=== PATIENT | female | born 1985 | race Caucasian/White ===

== ENCOUNTER 2017-09-19 19:17 | Emergency (ER) | payer OTHER ==
[2017-09-19 19:22] VITALS: BMI 22.2
[2017-09-19] MEDS ORDERED: SODIUM CHLORIDE 1,000 ML IV STA (20:07)
[2017-09-19] MEDS ORDERED: HYDROmorphone HCL CARPU-JECT 1 MG/1 ML DISP.SYRIN IVPUSH ONE ×2 (20:12→23:34)
--- NOTE | 2017-09-19 20:24 | PDOC ---
*Physical Exam - Vital Signs Last Vital Signs Temp Pulse Resp BP Pulse Ox 98.5 F 71 18 129/84 99 09/19/17 19:19 09/19/17 19:19 09/19/17 19:19 09/19/17 19:19 09/19/17 19:19 ED Treatment Course - LABORATORY CBC & Chemistry Diagram: 09/19/17 20:05 09/19/17 20:05 Medical Decision Making - Medical Decision Making 09/20/17 01:17 Pt seen by the Advanced Practice Provider under my direct supervision Ancillary studies reviewed I agree with plan as outlined by the Advanced Practice Provider *DC/Admit/Observation/Transfer Diagnosis at time of Disposition: Sickle cell pain crisis - Discharge Dispostion Disposition: HOME - Patient Instructions Printed Discharge Instructions: DI for Sickle Cell Anemia, Pain Crisis -- Adult Additional Instructions: drink plenty of fluids follow up with your lidar scientist as soon as possible. take your home pain medication.
--- NOTE | 2017-09-19 20:30 | PDOC ---
History of Present Illness - General Chief Complaint: Pain Stated Complaint: SICKLE CELL CRISIS Time Seen by Provider: 09/19/17 19:40 History Source: Patient - History of Present Illness Initial Comments: 09/19/17 20:36 31 year old complaining of chest pain, shoulder and arm pain and hip pain for 2 days. Patient took Dilaudid at 7 AM continued to have no relief in pain today. Denies cough or chest congestion, shortness of breath, abdominal pain, nausea vomiting diarrhea but this time. Patient has a history of sickle cell disease and followed by hematology at [facility]. last admission in May for pain crisis . normal hgb 7-8 Past History - Past Medical History Allergies/Adverse Reactions: Allergies Allergy/AdvReac Type Severity Reaction Status Date / Time bacitracin Allergy Verified 09/19/17 19:22 morphine Allergy Verified 09/19/17 19:22 Other medical history: sickle cell - Suicide/Smoking/Psychosocial Hx Smoking History: Never smoked Review of Systems - Review of Systems Able to Perform ROS?: Yes Is the patient limited Romanian proficient: No Constitutional: Yes: Other (generalized pain) Cardiac (ROS): Yes: Chest Pain Musculoskeletal: Yes: Other (arm pain, hip pain ) *Physical Exam - Vital Signs Last Vital Signs Temp Pulse Resp BP Pulse Ox 98.5 F 71 18 129/84 99 09/19/17 19:19 09/19/17 19:19 09/19/17 19:19 09/19/17 19:19 09/19/17 19:19 - Physical Exam General Appearance: Yes: Appropriately Dressed HEENT: positive: Other (icteric sclera) Respiratory/Chest: positive: Lungs Clear, Normal Breath Sounds Cardiovascular: positive: Regular Rhythm, Regular Rate Gastrointestinal/Abdominal: positive: Normal Bowel Sounds, Soft. negative: Tender Extremity: positive: Normal Capillary Refill, Normal Inspection, Normal Range of Motion ED Treatment Course - LABORATORY CBC & Chemistry Diagram: 09/19/17 20:05 09/19/17 20:05 - RADIOLOGY Chest X-Ray Result: No Infiltrates Progress Note - Progress Note Progress Note: A: sickle cell pain crisis P: cbc cmp retic count pain control IV hydration reevaluate Medical Decision Making - Medical Decision Making pain improved pain medication. patient is requesting to go home. patient reports that she will po hydrate at home. *DC/Admit/Observation/Transfer Diagnosis at time of Disposition: Sickle cell pain crisis - Discharge Dispostion Disposition: HOME - Patient Instructions Printed Discharge Instructions: DI for Sickle Cell Anemia, Pain Crisis -- Adult Additional Instructions: drink plenty of fluids follow up with your ammunition specialist as soon as possible. take your home pain medication.
[2017-09-19 21:07] LABS: BASOPHIL 0.6 % (0-2.0); EOSINOPHIL 3.2 % (0-4.5); MCH 30.9 pg (25.7-33.7); MCHC 35.2 g/dl (32.0-36.0); MEAN CELL VOLUME 87.7 fl (80-96); MEAN PLT VOLUME 7.8 fl (7.5-11.1); PLATELET COUNT 406 K/MM3 (134-434); RDW 18.7 % (11.6-15.6); WHITE BLOOD COUNT 16.6 K/mm3 (4.0-10.0)
[2017-09-19] MEDS ORDERED: HYDROmorphone HCL CARPU-JECT 1 MG/1 ML DISP.SYRIN ONE ×2 (21:12→23:54)
[2017-09-19 21:20] LABS: URINE APPEARANCE CLEAR; URINE BILIRUBIN NEGATIVE (NEGATIVE); URINE BLOOD NEGATIVE (NEGATIVE); URINE COLOR YELLOW; URINE GLUCOSE (UA) NEGATIVE (NEGATIVE); URINE KETONE NEGATIVE (NEGATIVE); URINE NITRITE NEGATIVE (NEGATIVE); URINE PROTEIN NEGATIVE (NEGATIVE); URINE UROBILINOGEN NEGATIVE mg/dL (0.2-1.0)
[2017-09-19 21:26] LABS: INR 1.33 (0.82-1.09)
[2017-09-19 21:46] LABS: ALBUMIN 3.9 g/dl (3.4-5.0); ALK PHOS 72 U/L (45-117); ANION GAP 9 (8-16); BILIRUBIN,TOTAL 7.5 mg/dL (0.2-1.0); CALCIUM 8.7 mg/dL (8.5-10.1); CO2 25 mmol/L (21-32); CREATININE 0.4 mg/dL (0.55-1.02); GLUCOSE,RANDOM 87 mg/dL (74-106); SGOT/AST 28 U/L (15-37); SGPT/ALT 16 U/L (12-78)
[2017-09-19 22:46] LABS: URINE LEUK ESTERASE Negative (NEGATIVE)
[2017-09-19] MEDS ORDERED: SODIUM CHLORIDE 1,000 ML IV SCH (23:15)
[2017-09-19] MEDS ORDERED: diphenhydrAMINE HCL 25 MG CAPSULE (FP) PO ONE (23:58)
[2017-09-20] MEDS ORDERED: diphenhydrAMINE HCL 25 MG CAPSULE (FP) PO ONE
[2017-09-20 02:20] VITALS: BP 98/61; PULSE 61; TEMP 98.3
== END 2017-09-20 02:26 | disposition home or self-care (01) ==
LOC: JER 19:17
PROC: 3E0337Z Introduction of Electrolytic and Water Balance Substance into Peripheral Vein, Percutaneous Approach (ICD-10-PCS; principal; 2017-09-19)
PROC: 3E033NZ Introduction of Analgesics, Hypnotics, Sedatives into Peripheral Vein, Percutaneous Approach (ICD-10-PCS; 2017-09-19)
PROC: 3E033GC Introduction of Other Therapeutic Substance into Peripheral Vein, Percutaneous Approach (ICD-10-PCS; 2017-09-19)
DX: D57.00 Hb-SS disease with crisis, unspecified (principal)
CPT/HCPCS: 36415; 71020-TC; 80053; 81003; 84703; 85025; 85044; 85610; 86850; 86900; 86901; 99281-25; G0277

== ENCOUNTER 2017-10-07 15:01 | Inpatient (IN) | payer OTHER ==
[2017-10-07] MEDS ORDERED: HYDROmorphone HCL CARPU-JECT 2 MG/1 ML DISP.SYRIN IVPUSH ONE ×2 (15:13→18:07)
[2017-10-07] MEDS ORDERED: SODIUM CHLORIDE 1,000 ML IV STA (15:14)
--- NOTE | 2017-10-07 15:54 | PDOC ---
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 - Physicial Exam PE: 10/07/17 16:26 Vitals: Triage Vital signs reviewed General Appearance: no acute distress, well nourished well developed Head: Atraumatic Eyes: Pupils equal reactive round, extraocular movement intact Cardiac: Regular rate and rhythym, no murmurs, no rubs, no gallops Lungs: Clear to auscultation bilateral, good air movement bilaterally Extremities: Full range of motion to all extremities, no cyanosis, clubbing, or edema Skin: Warm and dry, no rashes or lesions, no rash, no petechiae Neuro: AOX3; Cranial Nerves 2-12 grossly intact, Strength intact to all extremities, Sensation intact to all extremities, gait normal Psych: Normal mood, normal affect <Ruthie Shin - Last Filed: 10/07/17 16:26> - Resident Resident Name: Carlos Coleman - ED Attending Attestation I have performed the following: I have examined & evaluated the patient, The case was reviewed & discussed with the resident, I agree w/resident's findings & plan, Exceptions are as noted - Medical Decision Making 10/07/17 19:16 Patient with persistent pain. Patient states pain is similar to previous sickle cell exacerbations. No findings on chest x-ray. We'll observe for sickle cell crisis and further management. Suspicion at this time for acute chest. EKG chest x-ray troponin within normal limits. Slightly elevated white blood cell count the patient does have nonhealing ulcer on foot. Elevated bili unchanged from last visit. Likely 2/2 to active hemolysis. No abdominal pain on exam.. We'll observe for further management pain control and evaluation of chest complaints symptom. 10/07/17 19:17 10/07/17 19:31 <Mundo Kramer - Last Filed: 10/07/17 19:31>
--- NOTE | 2017-10-07 15:55 | PDOC ---
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 A rapid response was called and the patient was brought to the Emergency department for evaluation. Patient states she was seen in the ER yesterday evening for similar complaints. Patient states that she has had acute chest syndrome in the past and states that her current pain is not as bad as at that time. Patient denies SOB, abdominal pain, fever, chills. Past History - Past Medical History Allergies/Adverse Reactions: Allergies Allergy/AdvReac Type Severity Reaction Status Date / Time bacitracin Allergy Verified 10/07/17 15:50 morphine Allergy Verified 10/07/17 15:50 Home Medications: Ambulatory Orders Ascorbic Acid [Vitamin C -] 500 mg PO BID 10/07/17 Diphenhydramine HCl [Benadryl -] 25 mg PO Q6H 10/07/17 Folic Acid - 1 mg PO DAILY 10/07/17 Hydromorphone [Dilaudid -] 4 mg PO Q4H PRN 10/07/17 Pantoprazole Sodium [Protonix -] 40 mg PO DAILY 10/07/17 Zinc Sulfate 220 mg PO DAILY 10/07/17 - Suicide/Smoking/Psychosocial Hx Smoking History: Never smoked Review of Systems - Review of Systems Able to Perform ROS?: Yes Is the patient limited Moldovan proficient: No Constitutional: No: Chills, Fever Respiratory: No: Cough, Shortness of Breath, SOB with Exertion Cardiac (ROS): Yes: Chest Pain. No: Edema, Irregular Heart Rate, Palpitations ABD/GI: No: Symptoms Reported Musculoskeletal: Yes: Joint Pain (pain in hip and shoulder joints ). No: Back Pain, Joint Swelling, Muscle Pain Integumentary: No: Bruising, Change in Color Neurological: No: Headache, Numbness, Tingling Hematologic/Lymphatic: Yes: Anemia. No: Blood Clots, Easy Bleeding *Physical Exam - Physical Exam General Appearance: Yes: Appropriately Dressed, Moderate Distress HEENT: negative: Scleral Icterus (R), Scleral Icterus (L) Neck: positive: Trachea midline. negative: Tender Respiratory/Chest: positive: Lungs Clear, Normal Breath Sounds. negative: Chest Tender, Respiratory Distress, Accessory Muscle Use Cardiovascular: positive: Regular Rhythm, Regular Rate, S1, S2. negative: Edema , JVD, Murmur, Gallop/S3, Gallop/S4 Gastrointestinal/Abdominal: positive: Normal Bowel Sounds, Flat, Soft. negative : Tender Musculoskeletal: positive: Normal Inspection. negative: CVA Tenderness Extremity: positive: Normal Inspection, Normal Range of Motion. negative: Tender Integumentary: positive: Normal Color, Dry, Warm Neurologic: positive: program aide II-XII NML intact, Fully Oriented, Alert, Normal Mood/ Affect, Normal Response Heart Score/ECG Review - History History: Slightly suspicious - Electrocardiogram EKG: Normal - Risk Factors Risk Factors Heart Score: No Hx Hypercholesterolemia, No Hx Hypertension, No Hx Diabetes, No Smoking History, No Positive family hx of cardiac disease, No Hx Obesity Based on the list above the patient has:: No risk factors known - Troponin Troponin: </= normal limit - ECG Intrepretation Rhythm: Regular Rhythm - [place]: Normal ED Treatment Course - LABORATORY CBC & Chemistry Diagram: 10/07/17 15:55 10/07/17 15:55 Medical Decision Making - Medical Decision Making 10/07/17 16:26 The patient is a 31 yo f w/ PMH sickle juanita anemia who was bourght to the ER following acute onset of hip and chest pain after undergoing hyperbaric treatment. Patient is overtly distressed and in pain. This is likely a sickle cell crisis. -CBC, CMP -reticulocyte count -Type and screen -coags -troponin -EKG -CXR -2mg dilaudid IV -25mg benadryl IV -1L NS bolus 10/07/17 16:54 -CBC shows Hb 6.7 and elevated reticulocyte count -CMP shows elevated T.Bili -patient is likely to be admitted with a hematology consult. 10/07/17 18:20 -patient's pain not controlled; giving another 2mg dilaudid and 25 mg benadryl -spoke with hospitalist team who agrees to admit the patient for observation. *DC/Admit/Observation/Transfer Diagnosis at time of Disposition: Sickle cell anemia with crisis - Discharge Dispostion Condition at time of disposition: Improved Admit: Yes - Referrals - Patient Instructions - Post Discharge Activity
[2017-10-07] MEDS ORDERED: HYDROmorphone HCL CARPU-JECT 2 MG/1 ML DISP.SYRIN ONE ×3 (15:59→20:54)
[2017-10-07 16:02] LABS: BASOPHIL 0.5 % (0-2.0); EOSINOPHIL 1.6 % (0-4.5); MCH 29.5 pg (25.7-33.7); MCHC 35.6 g/dl (32.0-36.0); MEAN CELL VOLUME 82.9 fl (80-96); MEAN PLT VOLUME 7.6 fl (7.5-11.1); NEUTROPHILS 59.8 % (42.8-82.8); PLATELET COUNT 323 K/MM3 (134-434); RDW 19.4 % (11.6-15.6)
[2017-10-07 16:18] LABS: INR 1.41 (0.82-1.09); PROTHROMBIN TIME (PATIENT) 15.9 SEC (9.98-11.88)
[2017-10-07 16:27] LABS: ANISOCYTOSIS 2+; HYPOCHROMIA 2+; MICROCYTOSIS 1+; POIKILOCYTOSIS 1+; POLYCHROMASIA 1+; TARGET CELLS 1+
[2017-10-07 16:28] LABS: ALK PHOS 54 U/L (45-117); ANION GAP 7 (8-16); BILIRUBIN,TOTAL 7.9 mg/dL (0.2-1.0); CALCIUM 8.5 mg/dL (8.5-10.1); CO2 27 mmol/L (21-32); CREATININE 0.5 mg/dL (0.55-1.02); GLUCOSE,RANDOM 84 mg/dL (74-106); SGOT/AST 18 U/L (15-37); SGPT/ALT 14 U/L (12-78); TOT PROT 6.6 g/dl (6.4-8.2)
[2017-10-07] MEDS ORDERED: ACETAMINOPHEN 1000 MG/100 ML VIAL (NON FORMULARY) IVPB ONE (19:02)
[2017-10-07] MEDS ORDERED: ACETAMINOPHEN INJECTION 100 ML IVPB ONE (19:05)
[2017-10-07] MEDS ORDERED: HYDROmorphone HCL CARPU-JECT 2 MG/1 ML DISP.SYRIN IM PRN (20:45)
--- NOTE | 2017-10-07 20:50 | PN ---
Teaching Attending Note Name of Resident: Karen Paul ATTENDING PHYSICIAN STATEMENT I saw and evaluated the patient. I reviewed the resident's note and discussed the case with the resident. I agree with the resident's findings and plan as documented. SUBJECTIVE:Patient with h/o sickle cell presented with shoulder, chest and hip pain. Denies SOB. last crisis in may 2017. No taking hydroxyurea due to wound treatment. Patient had recent rapid response episode in hyperbaric therapy today. OBJECTIVE: CBCD WBC 15.0 K/mm3 (4.0-10.0) H 10/07/17 15:55 RBC 2.27 M/mm3 (3.60-5.2) L 10/07/17 15:55 Hgb 6.7 GM/dL (10.7-15.3) L* D 10/07/17 15:55 Hct 18.9 % (32.4-45.2) L 10/07/17 15:55 MCV 82.9 fl (80-96) 10/07/17 15:55 MCHC 35.6 g/dl (32.0-36.0) 10/07/17 15:55 RDW 19.4 % (11.6-15.6) H 10/07/17 15:55 Plt Count 323 K/MM3 (134-434) D 10/07/17 15:55 MPV 7.6 fl (7.5-11.1) 10/07/17 15:55 CMP Sodium 141 mmol/L (136-145) 10/07/17 15:55 Potassium 4.0 mmol/L (3.5-5.1) 10/07/17 15:55 Chloride 107 mmol/L (98-107) 10/07/17 15:55 Carbon Dioxide 27 mmol/L (21-32) 10/07/17 15:55 Anion Gap 7 (8-16) L 10/07/17 15:55 BUN 10 mg/dL (7-18) D 10/07/17 15:55 Creatinine 0.5 mg/dL (0.55-1.02) L D 10/07/17 15:55 Creat Clearance w eGFR > 60 (>60) 10/07/17 15:55 Random Glucose 84 mg/dL (74-106) 10/07/17 15:55 Calcium 8.5 mg/dL (8.5-10.1) 10/07/17 15:55 Total Bilirubin 7.9 mg/dL (0.2-1.0) H 10/07/17 15:55 AST 18 U/L (15-37) D 10/07/17 15:55 ALT 14 U/L (12-78) 10/07/17 15:55 Alkaline Phosphatase 54 U/L (45-117) D 10/07/17 15:55 Total Protein 6.6 g/dl (6.4-8.2) 10/07/17 15:55 Albumin 4.0 g/dl (3.4-5.0) 10/07/17 15:55 CARDIAC ENZYMES Troponin I < 0.02 ng/ml (0.00-0.05) 10/07/17 15:55 ASSESSMENT AND PLAN: Sickle Cell Crisis r/o Acute chest Oxygen via 2L NC Diluadid 3mg q4h prn IVF NS 200cc/h Wound care - hyperbaric oxygen therapy as recommended.
[2017-10-07] MEDS ORDERED: HYDROmorphone HCL CARPU-JECT 1 MG/1 ML DISP.SYRIN ONE (20:54)
[2017-10-07] MEDS: SODIUM CHLORIDE 1,000 ML IV SCH (21:00)
[2017-10-07 21:11] LABS: URINE APPEARANCE CLEAR; URINE BILIRUBIN NEGATIVE (NEGATIVE); URINE BLOOD NEGATIVE (NEGATIVE); URINE COLOR LTYELLOW; URINE GLUCOSE (UA) NEGATIVE (NEGATIVE); URINE KETONE NEGATIVE (NEGATIVE); URINE NITRITE NEGATIVE (NEGATIVE); URINE PROTEIN NEGATIVE (NEGATIVE); URINE UROBILINOGEN NEGATIVE mg/dL (0.2-1.0)
--- NOTE | 2017-10-07 21:45 | HP ---
CHIEF COMPLAINT: Shoulder/knee/hip pain PCP: [facility] [employer] Offbearer: Dr. Sheridan HISTORY OF PRESENT ILLNESS: Patient is a 31 year old female with a PMHx of sickle cell anemia (last sickle cell crisis -06/2017) with avascular necrosis of the hip and a chronic nonhealing foot ulcer who was initially a rapid response this afternoon while in hyperbarics for her foot treatment. Patient reports after completing her hyperbarics session, she started having severe hip and shoulder pain associated with chest pressure. Patient was rushed down to the ED and was given fluids and pain medication with adequate pain control. Patient states she has had several similar episodes in the past. Otherwise, patient denies fever, chills, nausea,vomiting, headache, acute vision changes, change in gait. ER course was notable for: (1) Dilaudid (2) Benadryl (3) IV NS Recent Travel: Denies PAST MEDICAL HISTORY: Sickle Cell anemia, Gastric ulcers PAST SURGICAL HISTORY: Skin graft of lower extremities Social History: Smoking: Denies Alcohol: Denies Drugs: Denies Family History: Mother- HTN, Father- HTN and DM Allergies: bacitracin Allergy (Verified 10/07/17 15:50), morphine Allergy ( Verified 10/07/17 15:50) HOME MEDICATIONS: Home Medications Medication Instructions Recorded Ascorbic Acid [Vitamin C -] 500 mg PO BID 10/07/17 Diphenhydramine HCl [Benadryl -] 25 mg PO Q6H 10/07/17 Folic Acid - 1 mg PO DAILY 10/07/17 Hydromorphone [Dilaudid -] 4 mg PO Q4H PRN 10/07/17 Pantoprazole Sodium [Protonix -] 40 mg PO DAILY 10/07/17 Zinc Sulfate 220 mg PO DAILY 10/07/17 REVIEW OF SYSTEMS CONSTITUTIONAL: Absent: fever, chills, diaphoresis, generalized weakness, malaise, loss of appetite, weight change HEENT: Absent: rhinorrhea, nasal congestion, throat pain, throat swelling, difficulty swallowing, mouth swelling, ear pain, eye pain, visual changes CARDIOVASCULAR: Chest pressure Absent: syncope, palpitations, irregular heart rate, lightheadedness, peripheral edema RESPIRATORY: Absent: cough, shortness of breath, dyspnea with exertion, orthopnea, wheezing, stridor, hemoptysis GASTROINTESTINAL:abdominal pain Absent: abdominal distension, nausea, vomiting, diarrhea, constipation, melena, hematochezia GENITOURINARY: Absent: dysuria, frequency, urgency, hesitancy, hematuria, flank pain, genital pain MUSCULOSKELETAL: Absent: myalgia, arthralgia, joint swelling, back pain, neck pain SKIN: Absent: rash, itching, pallor HEMATOLOGIC/IMMUNOLOGIC: Absent: easy bleeding, easy bruising, lymphadenopathy, frequent infections ENDOCRINE: Absent: unexplained weight gain, unexplained weight loss, heat intolerance, cold intolerance NEUROLOGIC: Absent: headache, focal weakness or paresthesias, dizziness, unsteady gait, seizure, mental status changes, bladder or bowel incontinence PSYCHIATRIC: Absent: anxiety, depression, suicidal or homicidal ideation, hallucinations. PHYSICAL EXAMINATION Vital Signs - 24 hr 10/07/17 10/07/17 10/07/17 15:05 21:09 21:24 Temperature 98.0 F Pulse Rate 78 Pulse Rate [ 78 Apical] Respiratory 20 16 Rate Blood Pressure 126/74 Blood Pressure 100/58 [Left Arm] O2 Sat by Pulse 100 96 96 Oximetry (%) GENERAL: Awake, alert, and fully oriented, in no acute distress. HEAD: Normal with no signs of trauma. EYES: Pupils equal, round and reactive to light, extraocular movements intact, sclera anicteric, conjunctiva clear. EARS, NOSE, THROAT: Oropharynx clear without exudates. Moist mucous membranes. NECK: Normal range of motion, supple without lymphadenopathy, JVD, or masses. LUNGS: Breath sounds equal, clear to auscultation bilaterally. No wheezes, and no crackles. No accessory muscle use. HEART: Regular rate and rhythm, normal S1 and S2 without murmur, rub or gallop. ABDOMEN: Soft, mild diffuse tenderness upon palpation of abdomen, not distended , normoactive bowel sounds, no guarding, no rebound, no masses. MUSCULOSKELETAL: diffuse tenderness throughout shoulders, arms, knees. UPPER EXTREMITIES: No peripheral edema. LOWER EXTREMITIES: No peripheral edema. Left ankle dressing c/d/i. Would not let me assess the wound. NEUROLOGICAL: Cranial nerves II-XII intact. Normal speech. Laboratory Results - last 24 hr 10/07/17 10/07/17 10/07/17 15:55 15:55 15:55 WBC 15.0 H RBC 2.27 L Hgb 6.7 L* D Hct 18.9 L MCV 82.9 MCH 29.5 MCHC 35.6 RDW 19.4 H Plt Count 323 D MPV 7.6 Neutrophils % 59.8 Lymphocytes % 20.2 Monocytes % 17.9 H Eosinophils % 1.6 Basophils % 0.5 Hypochromia 2+ Polychromasia 1+ Poikilocytosis 1+ Anisocytosis 2+ Microcytosis 1+ Sickle Cells 2+ Target Cells 1+ Retic Count 11.13 H* D PT with INR 15.90 H INR 1.41 H Sodium 141 Potassium 4.0 Chloride 107 Carbon Dioxide 27 Anion Gap 7 L BUN 10 D Creatinine 0.5 L D Creat Clearance w eGFR > 60 Random Glucose 84 Calcium 8.5 Total Bilirubin 7.9 H AST 18 D ALT 14 Alkaline Phosphatase 54 D Troponin I Total Protein 6.6 Albumin 4.0 Urine Color Urine Appearance Urine pH Ur Specific Lane Urine Protein Urine Glucose (UA) Urine Ketones Urine Blood Urine Nitrite Urine Bilirubin Urine Urobilinogen Blood Type Antibody Screen 10/07/17 10/07/17 10/07/17 15:55 15:55 21:00 WBC RBC Hgb Hct MCV MCH MCHC RDW Plt Count MPV Neutrophils % Lymphocytes % Monocytes % Eosinophils % Basophils % Hypochromia Polychromasia Poikilocytosis Anisocytosis Microcytosis Sickle Cells Target Cells Retic Count PT with INR INR Sodium Potassium Chloride Carbon Dioxide Anion Gap BUN Creatinine Creat Clearance w eGFR Random Glucose Calcium Total Bilirubin AST ALT Alkaline Phosphatase Troponin I < 0.02 Total Protein Albumin Urine Color Ltyellow Urine Appearance Clear Urine pH 6.[address] 1.009 Urine Protein Negative Urine Glucose (UA) Negative Urine Ketones Negative Urine Blood Negative Urine Nitrite Negative Urine Bilirubin Negative Urine Urobilinogen Negative Blood Type O POSITIVE Antibody Screen Negative IMAGES Chest X-ray (10/07/17): No acute pathology ASSESSMENT/PLAN: Patient is a 31 year old female with a PMHx of sickle cell anemia with multiple crisis in the past who was in hyperbarics for her wound care and started having diffuse joint pain and chest pressure. Patient admitted for further monitoring and management. Sickle Cell Crisis with Low Hemoglobin -Elevated retic count with elevated total bili and decreased hemoglobin -Continue IV NS at 200cc/hr -Continue Pain control with 3mg Dilaudid IVPB Q4H PRN and Benadryl 25mg PO TID -Patient not on Hydroxurea due to poor wound healing and patient has history of LE ulcers. Medication stopped by wound doctor -Hematology consult placed for input on whether we should transfuse PRBC's. Chronic LE Ulcers -Secondary to severe sickle cell anemia -Patient follows up with wound care clinic and hyperbarics -Will continue home medications Zinc for wound healing History of Gastric Ulcers -Patient reports having EGD done before that showed gastric ulcers and has follow up for one next week -Continue Protonix 40mg daily F/E/N -IV NS @200cc/hr -Electrolytes wnl -Regular diet Prophylaxis -Low risks. Ambulating. -Protonix 40mg for GI Disposition -Full code -Hematology consult placed. Will need to remain overnight Visit type - Emergency Visit Emergency Visit: Yes ED Registration Date: 10/07/17 Care time: The patient presented to the Emergency Department on the above date and was hospitalized for further evaluation of their emergent condition. - New Patient This patient is new to me today: Yes Date on this admission: 10/08/17 - Critical Care Critical Care patient: No
[2017-10-07 22:34] VITALS: BMI 21.8
[2017-10-07 22:40] LABS: URINE LEUK ESTERASE Negative (NEGATIVE)
[2017-10-07] MEDS: diphenhydrAMINE HCL 25 MG CAPSULE (FP) PO SCH (23:25)
[2017-10-08] MEDS: SODIUM CHLORIDE 1,000 ML IV SCH ×2 (03:05→14:26)
[2017-10-08] MEDS: HYDROmorphone HCL CARPU-JECT 2 MG/1 ML DISP.SYRIN IVPB PRN ×6 (05:02→21:30)
[2017-10-08] MEDS: diphenhydrAMINE HCL 25 MG CAPSULE (FP) PO SCH ×3 (06:11→21:26)
[2017-10-08 07:40] LABS: BASOPHIL 1.1 % (0-2.0); EOSINOPHIL 2.5 % (0-4.5); MCH 29.9 pg (25.7-33.7); MCHC 36.5 g/dl (32.0-36.0); MEAN CELL VOLUME 81.9 fl (80-96); NEUTROPHILS 58.6 % (42.8-82.8); PLATELET COUNT 309 K/MM3 (134-434); RDW 21.2 % (11.6-15.6); WHITE BLOOD COUNT 11.4 K/mm3 (4.0-10.0)
[2017-10-08] MEDS ORDERED: SODIUM CHLORIDE 1,000 ML IV SCH (07:45)
[2017-10-08 08:06] LABS: INR 1.34 (0.82-1.09); PROTHROMBIN TIME (PATIENT) 15.1 SEC (9.98-11.88)
[2017-10-08 08:09] LABS: ALBUMIN 3.6 g/dl (3.4-5.0); ANION GAP 10 (8-16); CALCIUM 7.8 mg/dL (8.5-10.1); CO2 23 mmol/L (21-32); GLUCOSE,RANDOM 73 mg/dL (74-106)
[2017-10-08 08:13] LABS: ALK PHOS 53 U/L (45-117); BILIRUBIN,TOTAL 6.4 mg/dL (0.2-1.0); CREATININE 0.3 mg/dL (0.55-1.02); SGOT/AST 20 U/L (15-37); SGPT/ALT 12 U/L (12-78)
[2017-10-08] MEDS ORDERED: PT OWN MED DRAWER 7, Y5N ONE ×2 (09:04→18:32)
[2017-10-08] MEDS: FOLIC ACID 1 MG TABLET (FP) PO SCH (09:06)
[2017-10-08] MEDS: PANTOPRAZOLE 40 MG TABLET (FP) PO SCH (09:06)
[2017-10-08] MEDS: ZINC SULFATE 220 MG CAPSULE (FP) PO SCH (09:06)
[2017-10-08] MEDS ORDERED: FLU VACCINE QUAD 60 MCG/0.5 ML (MDV 17-18) IM ONE (10:00)
--- NOTE | 2017-10-08 13:12 | PN ---
Physical Exam: SUBJECTIVE: Patient seen and examined. She reports pain to her back, hip, and knees. Asking for increased frequency of pain medication. Only used dilaudid at home as needed. OBJECTIVE: Vital Signs Period Temp Pulse Resp BP Sys/Quijano Pulse Ox Last 24 Hr 98.0 F-99 F 68-85 16-20 92-126/48-74 94-100 PE Neuro: alert, awake, cn 2-12intact HEENT: LEJ Pulm: CTAB, + NC Abd: s nt nd + bs Ext: L ankle wound dressed, no le edema b/l Laboratory Results - last 24 hr 10/08/17 10/08/17 10/08/17 06:10 06:10 06:10 WBC 11.4 H RBC 2.02 L Hgb 6.0 L* D Hct 16.5 L MCV 81.9 MCH 29.9 MCHC 36.5 H RDW 21.2 H Plt Count 309 MPV 8.0 Neutrophils % 58.6 Lymphocytes % 20.4 Monocytes % 17.4 H Eosinophils % 2.5 Basophils % 1.1 Hypochromia Polychromasia Poikilocytosis Anisocytosis Microcytosis Sickle Cells Target Cells Retic Count PT with INR 15.10 H INR 1.34 H Sodium 144 Potassium 4.1 Chloride 111 H Carbon Dioxide 23 Anion Gap 10 BUN 9 Creatinine 0.3 L D Creat Clearance w eGFR > 60 Random Glucose 73 L Calcium 7.8 L Total Bilirubin 6.4 H AST 20 ALT 12 Alkaline Phosphatase 53 Troponin I Total Protein 6.0 L Albumin 3.6 Urine Color Urine Appearance Urine pH Ur Specific [place] Urine Protein Urine Glucose (UA) Urine Ketones Urine Blood Urine Nitrite Urine Bilirubin Urine Urobilinogen Ur Leukocyte Esterase Blood Type Antibody Screen Antigen Identification Crossmatch Active Medications Generic Name Dose Route Start Last Admin Trade Name Freq PRN Reason Stop Dose Admin Diphenhydramine HCl 25 mg 10/07/17 22:00 10/08/17 13:03 Benadryl - PO 25 mg TID DEBBIE Administration Folic Acid 1 mg 10/08/17 10:00 10/08/17 09:06 Folic Acid - PO 1 mg DAILY DEBBIE Administration Hydromorphone HCl 3 mg 10/08/17 10:47 10/08/17 12:42 Dilaudid Injection - IVPB 3 mg Q3H PRN Administration PAIN Sodium Chloride 1,000 mls @ 200 mls/hr 10/08/17 10:48 Normal Saline - IV ASDIR DEBBIE Pantoprazole Sodium 40 mg 10/08/17 10:00 10/08/17 09:06 Protonix - PO 40 mg DAILY DEBBIE Administration Zinc Sulfate 220 mg 10/08/17 10:00 10/08/17 09:06 Orazinc - PO 220 mg DAILY DEBBIE Administration Assessment: 31 year old female with a PMHx of sickle cell anemia (last sickle cell crisis -06/2017) with avascular necrosis of the hip and a chronic non- healing foot ulcer admitted after rapid response in hyperbarics for acute pain crisis. Plan: 1. Acute sickle cell crisis - Elevated Retic count - No signs of acute chest on cxr, pt reports chest pressure improved - WBC wnl, no fever - Increase prn dialudid 3mg q3hr - Do not start hydroxurea due to LE ulcer, contraindicated with wound healing - Transfuse 1uprbc now 2. Acute blood loss anemia - Baseline hgb per pt 7.4-8 - Transfuse as above - Likely due to SSC, increased consumption 3. Chronic LE Ulcers - Secondary to severe sickle cell anemia - Patient follows up with wound care clinic and hyperbarics - Continue home PO Zinc 4. History of Gastric Ulcers - Patient reports having EGD done before that showed gastric ulcers and has follow up for one next week - Continue Protonix 40mg daily 5. DVT ppx - Lovenox sq Visit type - Emergency Visit Emergency Visit: Yes ED Registration Date: 10/07/17 Care time: The patient presented to the Emergency Department on the above date and was hospitalized for further evaluation of their emergent condition. - New Patient This patient is new to me today: Yes Date on this admission: 10/08/17 - Critical Care Critical Care patient: No - Discharge Referral Referred to [facility] Med [facility] No
--- NOTE | 2017-10-08 13:53 | CONSULT ---
Consult - text type - Consultation Consultation Note: HEMATOLOGY CVONSULT NOTE : CHIEF COMPLAINT: Shoulder/knee/hip pain PCP: Libia Cork Painter And Grader: Dr. Sheridan HISTORY OF PRESENT ILLNESS: She is a 31 year old female with a PMH od sickle cell disease, avascualr necrosis, non healing ulcers who came in for sickle cell crisis after hyperbaric oxygen. She feels she is in crisis. her Hb is lower than her baseline of 7 -8. No other symptoms. She is not on hydrurea to stimulate healing of ulcer. Her brother also recently from [place]. Recent Travel: Denies PAST MEDICAL HISTORY: Sickle Cell anemia, Gastric ulcers PAST SURGICAL HISTORY: Skin graft of lower extremities Social History: Smoking: Denies Alcohol: Denies Drugs: Denies Family History: Mother- HTN, Father- HTN and DM Allergies: bacitracin Allergy (Verified 10/07/17 15:50), morphine Allergy ( Verified 10/07/17 15:50) HOME MEDICATIONS: Home Medications Medication Instructions Recorded Ascorbic Acid [Vitamin C -] 500 mg PO BID 10/07/17 Diphenhydramine HCl [Benadryl -] 25 mg PO Q6H 10/07/17 Folic Acid - 1 mg PO DAILY 10/07/17 Hydromorphone [Dilaudid -] 4 mg PO Q4H PRN 10/07/17 Pantoprazole Sodium [Protonix -] 40 mg PO DAILY 10/07/17 Zinc Sulfate 220 mg PO DAILY 10/07/17 REVIEW OF SYSTEMS CONSTITUTIONAL: Absent: fever, chills, diaphoresis, generalized weakness, malaise, loss of appetite, weight change HEENT: Absent: rhinorrhea, nasal congestion, throat pain, throat swelling, difficulty swallowing, mouth swelling, ear pain, eye pain, visual changes CARDIOVASCULAR: Chest pressure Absent: syncope, palpitations, irregular heart rate, lightheadedness, peripheral edema RESPIRATORY: Absent: cough, shortness of breath, dyspnea with exertion, orthopnea, wheezing, stridor, hemoptysis GASTROINTESTINAL:abdominal pain Absent: abdominal distension, nausea, vomiting, diarrhea, constipation, melena, hematochezia GENITOURINARY: Absent: dysuria, frequency, urgency, hesitancy, hematuria, flank pain, genital pain MUSCULOSKELETAL: Absent: myalgia, arthralgia, joint swelling, back pain, neck pain SKIN: Absent: rash, itching, pallor HEMATOLOGIC/IMMUNOLOGIC: Absent: easy bleeding, easy bruising, lymphadenopathy, frequent infections ENDOCRINE: Absent: unexplained weight gain, unexplained weight loss, heat intolerance, cold intolerance NEUROLOGIC: Absent: headache, focal weakness or paresthesias, dizziness, unsteady gait, seizure, mental status changes, bladder or bowel incontinence PSYCHIATRIC: Absent: anxiety, depression, suicidal or homicidal ideation, hallucinations. PHYSICAL EXAMINATION Vital Signs Period Temp Pulse Resp BP Sys/Quijano Pulse Ox Last 24 Hr 98.0 F-99 F 66-85 16-20 92-126/48-74 94-100 GENERAL: Awake, alert, and fully oriented, in no acute distress. HEAD: Normal with no signs of trauma. EYES: Pupils equal, round and reactive to light, extraocular movements intact, sclera anicteric, conjunctiva clear. EARS, NOSE, THROAT: Oropharynx clear without exudates. Moist mucous membranes. NECK: Normal range of motion, supple without lymphadenopathy, JVD, or masses. LUNGS: Breath sounds equal, clear to auscultation bilaterally. No wheezes, and no crackles. No accessory muscle use. HEART: Regular rate and rhythm, normal S1 and S2 without murmur, rub or gallop. ABDOMEN: Soft, mild diffuse tenderness upon palpation of abdomen, not distended , normoactive bowel sounds, no guarding, no rebound, no masses. MUSCULOSKELETAL: diffuse tenderness throughout shoulders, arms, knees. UPPER EXTREMITIES: No peripheral edema. LOWER EXTREMITIES: No peripheral edema. Left ankle dressing c/d/i. Would not let me assess the wound. NEUROLOGICAL: Cranial nerves II-XII intact. Normal speech. CBC, BMP 10/08/17 06:10 10/08/17 06:10 Active Medications Generic Name Dose Route Start Last Admin Trade Name Freq PRN Reason Stop Dose Admin Diphenhydramine HCl 25 mg 10/07/17 22:00 10/08/17 13:03 Benadryl - PO 25 mg TID DEBBIE Administration Enoxaparin Sodium 40 mg 10/08/17 13:30 Lovenox - SQ DAILY DEBBIE Folic Acid 1 mg 10/08/17 10:00 10/08/17 09:06 Folic Acid - PO 1 mg DAILY DEBBIE Administration Hydromorphone HCl 3 mg 10/08/17 10:47 10/08/17 12:42 Dilaudid Injection - IVPB 3 mg Q3H PRN Administration PAIN Sodium Chloride 1,000 mls @ 200 mls/hr 10/08/17 10:48 Normal Saline - IV ASDIR DEBBIE Pantoprazole Sodium 40 mg 10/08/17 10:00 10/08/17 09:06 Protonix - PO 40 mg DAILY DEBBIE Administration Zinc Sulfate 220 mg 10/08/17 10:00 10/08/17 09:06 Orazinc - PO 220 mg DAILY DEBBIE Administration Chest X-ray (10/07/17): Normal ASSESSMENT/PLAN: Patient is a 31 year old female with a PMHx of sickle cell anemia with multiple crisis here for sickle cell crisis -Agree with a transfusion target of 7 -8 -continue opiods for sickle cell crisis -patient has a good awareness of the disease -continue folic acid -titrate pain meds according to pain
[2017-10-08] MEDS: ENOXAPARIN NA (PORCINE) 40 MG/0.4 ML DISP.SYRIN SQ SCH (14:26)
[2017-10-09] MEDS: SODIUM CHLORIDE 1,000 ML IV SCH ×4 (01:26→18:38)
[2017-10-09] MEDS: HYDROmorphone HCL CARPU-JECT 2 MG/1 ML DISP.SYRIN IVPB PRN ×7 (02:54→21:51)
[2017-10-09] MEDS: diphenhydrAMINE HCL 25 MG CAPSULE (FP) PO SCH ×3 (06:14→21:00)
[2017-10-09 08:21] LABS: ALBUMIN 3.3 g/dl (3.4-5.0); ANION GAP 11 (8-16); BILIRUBIN,TOTAL 6.4 mg/dL (0.2-1.0); CO2 21 mmol/L (21-32); CREATININE 0.4 mg/dL (0.55-1.02); GLUCOSE,RANDOM 71 mg/dL (74-106); SGPT/ALT 14 U/L (12-78); TOT PROT 5.6 g/dl (6.4-8.2)
[2017-10-09 08:22] LABS: ALK PHOS 50 U/L (45-117)
[2017-10-09 08:31] LABS: SGOT/AST 34 U/L (15-37)
[2017-10-09 09:22] LABS: BASOPHIL 1.2 % (0-2.0); EOSINOPHIL 5.3 % (0-4.5); MCHC 35.9 g/dl (32.0-36.0); MEAN CELL VOLUME 80.9 fl (80-96); MEAN PLT VOLUME 7.7 fl (7.5-11.1); NEUTROPHILS 50.1 % (42.8-82.8); PLATELET COUNT 327 K/MM3 (134-434); RDW 21.9 % (11.6-15.6); WHITE BLOOD COUNT 10.5 K/mm3 (4.0-10.0)
[2017-10-09] MEDS: PANTOPRAZOLE 40 MG TABLET (FP) PO SCH (09:25)
[2017-10-09] MEDS: ZINC SULFATE 220 MG CAPSULE (FP) PO SCH (09:25)
[2017-10-09] MEDS: ENOXAPARIN NA (PORCINE) 40 MG/0.4 ML DISP.SYRIN SQ SCH (09:25)
[2017-10-09] MEDS: FOLIC ACID 1 MG TABLET (FP) PO SCH (09:25)
--- NOTE | 2017-10-09 10:57 | PN ---
Physical Exam: SUBJECTIVE: Patient seen and examined. She reports feeling a little better, when she ambulated the halls yesterday she became fatigued and pain returned quickly. Still requiring dilaudid q3hr OBJECTIVE: Vital Signs Period Temp Pulse Resp BP Sys/Quijano Pulse Ox Last 24 Hr 98.3 F-98.8 F 66-82 18-20 95-109/47-64 95-95 PE Neuro: alert, awake, cn 2-12intact HEENT: LEJ Pulm: CTAB, + NC Abd: s nt nd + bs Ext: L lateral ankle wound, 5x2.5cm, clean, no drainage, slough, pink, Achilles region tenderness to palpation Laboratory Results - last 24 hr 10/08/17 10/09/17 10/09/17 09:59 06:35 09:06 WBC 10.5 H RBC 2.41 L Hgb 7.0 L D Hct 19.5 L D MCV 80.9 MCH 29.0 MCHC 35.9 RDW 21.9 H Plt Count 327 MPV 7.7 Neutrophils % 50.1 Lymphocytes % 26.7 D Monocytes % 16.7 H Eosinophils % 5.3 H D Basophils % 1.2 Retic Count 13.25 H* D Sodium 144 Potassium 4.2 Chloride 112 H Carbon Dioxide 21 Anion Gap 11 BUN 5 L D Creatinine 0.4 L D Creat Clearance w eGFR > 60 Random Glucose 71 L Calcium 8.0 L Total Bilirubin 6.4 H AST 34 D ALT 14 Alkaline Phosphatase 50 Total Protein 5.6 L Albumin 3.3 L Crossmatch See Detail Active Medications Generic Name Dose Route Start Last Admin Trade Name Freq PRN Reason Stop Dose Admin Diphenhydramine HCl 25 mg 10/07/17 22:00 10/09/17 06:14 Benadryl - PO Not Given TID DEBBIE Enoxaparin Sodium 40 mg 10/08/17 13:30 10/09/17 09:25 Lovenox - SQ 40 mg DAILY DEBBIE Administration Folic Acid 1 mg 10/08/17 10:00 10/09/17 09:25 Folic Acid - PO 1 mg DAILY DEBBIE Administration Hydromorphone HCl 3 mg 10/08/17 10:47 10/09/17 09:25 Dilaudid Injection - IVPB 3 mg Q3H PRN Administration PAIN Sodium Chloride 1,000 mls @ 200 mls/hr 10/08/17 10:48 10/09/17 04:55 Normal Saline - IV 200 mls/hr ASDIR DEBBIE Administration Pantoprazole Sodium 40 mg 10/08/17 10:00 10/09/17 09:25 Protonix - PO 40 mg DAILY DEBBIE Administration Zinc Sulfate 220 mg 10/08/17 10:00 10/09/17 09:25 Orazinc - PO 220 mg DAILY DEBBIE Administration Assessment: 31 year old female with a PMHx of sickle cell anemia (last sickle cell crisis -06/2017) with avascular necrosis of the hip and a chronic non- healing foot ulcer admitted after rapid response in hyperbarics for acute pain crisis. Plan: 1. Acute sickle cell crisis - Elevated Retic count increased - Maintain prn dilaudid 3mg q3hr - Folic acid daily - IVF 200cc/hr - Additional packed cells today - Transfuse 1uprbc 10/08 - Do not start hydroxurea due to LE ulcer, contraindicated with wound healing 2. Acute blood loss anemia - Inappropriate rise with 1unit - Will transfuse additional unit now - Baseline hgb per pt 7.4-8 - Likely due to SSC, increased consumption 3. Chronic LE Ulcers - Secondary to severe sickle cell anemia - Wound changed today by pt, witnessed by myself and nurse - Patient follows up with wound care clinic and hyperbarics, Dr. Friend - Continue home PO Zinc 4. History of Gastric Ulcers - Patient reports having EGD done before that showed gastric ulcers and has follow up for one next week - Continue Protonix 40mg daily 5. DVT ppx - Lovenox sq Visit type - Emergency Visit Emergency Visit: Yes ED Registration Date: 10/07/17 Care time: The patient presented to the Emergency Department on the above date and was hospitalized for further evaluation of their emergent condition. - New Patient This patient is new to me today: No - Critical Care Critical Care patient: No
[2017-10-09 13:09] LABS: ANISOCYTOSIS 2+; HYPOCHROMIA 1+; MACROCYTOSIS 1+; POLYCHROMASIA 1+
[2017-10-09 13:10] LABS: STOMATOCYTE FEW; TARGET CELLS 1+
--- NOTE | 2017-10-09 13:58 | PN ---
Progress Note (short form) - Note Progress Note: Progress Note: Patient seen and examined She is better than yesterday and her pain is controlled. Vital Signs Period Temp Pulse Resp BP Sys/Quijano Pulse Ox Last 24 Hr 98.4 F-98.8 F 67-82 20-20 95-109/47-64 95-95 AFVSS HEENT: NATHALIA, EOM Intact Cor: RSR, No murmurs, No gallops Lungs: Clear to P&A.scattered rhonchi Abd: Soft, Normal bowel sounds, No organomegaly Ext:No edema Skin: No rashes, Integument intact Labs: reviewed CBC, BMP 10/09/17 09:06 10/09/17 06:35 Active Medications Generic Name Dose Route Start Last Admin Trade Name Freq PRN Reason Stop Dose Admin Diphenhydramine HCl 25 mg 10/07/17 22:00 10/09/17 13:03 Benadryl - PO 25 mg TID DEBBIE Administration Enoxaparin Sodium 40 mg 10/08/17 13:30 10/09/17 09:25 Lovenox - SQ 40 mg DAILY DEBBIE Administration Folic Acid 1 mg 10/08/17 10:00 10/09/17 09:25 Folic Acid - PO 1 mg DAILY DEBBIE Administration Hydromorphone HCl 3 mg 10/08/17 10:47 10/09/17 12:22 Dilaudid Injection - IVPB 3 mg Q3H PRN Administration PAIN Sodium Chloride 1,000 mls @ 200 mls/hr 10/08/17 10:48 10/09/17 11:03 Normal Saline - IV 200 mls/hr ASDIR DEBBIE Administration Pantoprazole Sodium 40 mg 10/08/17 10:00 10/09/17 09:25 Protonix - PO 40 mg DAILY DEBBIE Administration Zinc Sulfate 220 mg 10/08/17 10:00 10/09/17 09:25 Orazinc - PO 220 mg DAILY DEBBIE Administration A/P ASSESSMENT/PLAN: Patient is a 31 year old female with a PMHx of sickle cell anemia with multiple crisis here for sickle cell crisis. She also huitron chronic leg ulcers and is not on Hydrurea due to delayed wound healing. -Agree with a transfusion target of 7 -8. Anotehr unit of PRBC is ordered and is indicated. -continue opiods for sickle cell crisis -patient has a good awareness of the disease -continue folic acid -titrate pain meds according to pain
[2017-10-09] MEDS ORDERED: POLYETHYLENE GLYCOL 3350 119 GM BTL PO ONE (21:32)
[2017-10-10] MEDS: HYDROmorphone HCL CARPU-JECT 2 MG/1 ML DISP.SYRIN IVPB PRN ×7 (01:11→22:30)
[2017-10-10] MEDS: diphenhydrAMINE HCL 25 MG CAPSULE (FP) PO SCH ×3 (05:30→21:38)
[2017-10-10 09:05] LABS: BASOPHIL 0.9 % (0-2.0); MCH 29.5 pg (25.7-33.7); MEAN CELL VOLUME 81.9 fl (80-96); MEAN PLT VOLUME 7.6 fl (7.5-11.1); NEUTROPHILS 54.2 % (42.8-82.8); PLATELET COUNT 296 K/MM3 (134-434); RDW 20.6 % (11.6-15.6)
[2017-10-10] MEDS: ZINC SULFATE 220 MG CAPSULE (FP) PO SCH (09:18)
[2017-10-10] MEDS: ENOXAPARIN NA (PORCINE) 40 MG/0.4 ML DISP.SYRIN SQ SCH (09:18)
[2017-10-10] MEDS: FOLIC ACID 1 MG TABLET (FP) PO SCH (09:18)
[2017-10-10] MEDS: PANTOPRAZOLE 40 MG TABLET (FP) PO SCH (09:18)
[2017-10-10] MEDS: SODIUM CHLORIDE 1,000 ML IV SCH ×2 (12:16)
--- NOTE | 2017-10-10 12:20 | PN ---
Physical Exam: SUBJECTIVE: Patient seen and examined. Her pain level is the same, she does feel better after transfusions. Afebrile OBJECTIVE: Vital Signs Period Temp Pulse Resp BP Sys/Quijano Pulse Ox Last 24 Hr 97.2 F-99.5 F 61-73 20-20 93-110/46-62 97-97 PE Neuro: alert, awake, cn 2-12intact HEENT: LEJ Pulm: CTAB, + NC Abd: s nt nd + bs Ext: L lateral ankle wound, 5x2.5cm, serous drainage, +1 pitting edema Laboratory Results - last 24 hr 10/10/17 08:35 WBC 11.0 H RBC 2.44 L Hgb 7.2 L Hct 20.0 L MCV 81.9 MCH 29.5 MCHC 36.0 RDW 20.6 H Plt Count 296 MPV 7.6 Neutrophils % 54.2 Lymphocytes % 21.6 Monocytes % 17.3 H Eosinophils % 6.0 H Basophils % 0.9 Hypochromia Polychromasia Anisocytosis Macrocytosis Sickle Cells Target Cells Stomatocytes Retic Count 11.45 H* D Blood Type Antibody Screen Crossmatch Active Medications Generic Name Dose Route Start Last Admin Trade Name Freq PRN Reason Stop Dose Admin Diphenhydramine HCl 25 mg 10/07/17 22:00 10/10/17 05:30 Benadryl - PO 25 mg TID DEBBIE Administration Enoxaparin Sodium 40 mg 10/08/17 13:30 10/10/17 09:18 Lovenox - SQ 40 mg DAILY DEBBIE Administration Folic Acid 1 mg 10/08/17 10:00 10/10/17 09:18 Folic Acid - PO 1 mg DAILY DEBBIE Administration Hydromorphone HCl 3 mg 10/08/17 10:47 10/10/17 12:09 Dilaudid Injection - IVPB 3 mg Q3H PRN Administration PAIN Sodium Chloride 1,000 mls @ 200 mls/hr 10/08/17 10:48 10/10/17 12:16 Normal Saline - IV 200 mls/hr ASDIR DEBBIE Administration Pantoprazole Sodium 40 mg 10/08/17 10:00 10/10/17 09:18 Protonix - PO 40 mg DAILY DEBBIE Administration Zinc Sulfate 220 mg 10/08/17 10:00 10/10/17 09:18 Orazinc - PO 220 mg DAILY DEBBIE Administration Assessment: 31 year old female with a PMHx of sickle cell anemia (last sickle cell crisis -06/2017) with avascular necrosis of the hip and a chronic non- healing foot ulcer admitted after rapid response in hyperbarics for acute pain crisis. Plan: 1. Acute sickle cell crisis - Retic count mild decrease - Maintain prn dilaudid 3mg q3hr - Folic acid daily - IVF 100cc/hr - Transfused 2uprbc 10/08, - Do not start hydroxurea due to LE ulcer, contraindicated with wound healing 2. Acute blood loss anemia - Hgb improved - No further transfusions at this time - Baseline hgb per pt 7.4-8 - Likely due to SSC, increased consumption 3. Chronic LE Ulcers - Secondary to severe sickle cell anemia - Dressing change today by pt - Patient follows up with wound care clinic and hyperbarics, Dr. Friend - Continue home PO Zinc 4. History of Gastric Ulcers - Patient reports having EGD done before that showed gastric ulcers and has follow up for one next week - Continue Protonix 40mg daily 5. DVT ppx - Lovenox sq Visit type - Emergency Visit Emergency Visit: Yes ED Registration Date: 10/10/17 Care time: The patient presented to the Emergency Department on the above date and was hospitalized for further evaluation of their emergent condition. - New Patient This patient is new to me today: Yes Date on this admission: 10/10/17 - Critical Care Critical Care patient: No - Discharge Referral Referred to [facility] Med [facility] No
[2017-10-10] MEDS ORDERED: SODIUM CHLORIDE 1,000 ML IV SCH ×2 (12:55→18:44)
[2017-10-10 14:40] LABS: CPK 57 IU/L (26-192); TROPONIN I < 0.02 ng/ml (0.00-0.05)
--- NOTE | 2017-10-10 17:21 | EKG ---
Test Reason : Blood Pressure : / mmHG Vent. Rate : 060 BPM Atrial Rate : 060 BPM P-R Int : 180 ms QRS Dur : 072 ms QT Int : 410 ms P-R-T Axes : 007 042 016 degrees QTc Int : 410 ms NORMAL SINUS RHYTHM NORMAL ECG WHEN COMPARED WITH ECG OF 07-OCT-2017 15:14, T WAVE VARIATION Confirmed by DEVIN JEFFERSON MD ([id number]) on 10/10/2017 5:21:07 PM Referred By: DINORAH GROSS DR Confirmed By:DEVIN JEFFERSON MD
--- NOTE | 2017-10-10 20:23 | PN ---
Progress Note (short form) - Note Progress Note: PAtient seen and examined HAd some chest pain earlier in the day No SOB?cogh currently Not in any distress Last Vital Signs Temp Pulse Resp BP Pulse Ox 88 F L 76 20 112/68 95 10/10/17 21:35 10/10/17 21:35 10/10/17 21:35 10/10/17 21:35 10/10/17 21:00 Cor: RSR, No murmurs, No gallops Lungs: Clear to P&A Abd: Soft, Normal bowel sounds, mild epigastric tenderness Ext:No significant edema Abnormal Lab Results 10/10/17 08:35 WBC 11.0 H RBC 2.44 L Hgb 7.2 L Hct 20.0 L RDW 20.6 H Monocytes % 17.3 H Eosinophils % 6.0 H Retic Count 11.45 H* D Home Medication List Medication Instructions Recorded Confirmed Type Ascorbic Acid [Vitamin C -] 500 mg PO BID 10/07/17 10/07/17 History Diphenhydramine HCl [Benadryl -] 25 mg PO Q6H 10/07/17 10/07/17 History Folic Acid - 1 mg PO DAILY 10/07/17 10/07/17 History Hydromorphone [Dilaudid -] 4 mg PO Q4H PRN 10/07/17 10/07/17 History Pantoprazole Sodium [Protonix -] 40 mg PO DAILY 10/07/17 10/07/17 History Zinc Sulfate 220 mg PO DAILY 10/07/17 10/07/17 History Active Medications Generic Name Dose Route Start Last Admin Trade Name Freq PRN Reason Stop Dose Admin Diphenhydramine HCl 25 mg 10/07/17 22:00 10/10/17 21:38 Benadryl - PO 25 mg TID DEBBIE Administration Enoxaparin Sodium 40 mg 10/08/17 13:30 10/10/17 09:18 Lovenox - SQ 40 mg DAILY DEBBIE Administration Folic Acid 1 mg 10/08/17 10:00 10/10/17 09:18 Folic Acid - PO 1 mg DAILY DEBBIE Administration Hydromorphone HCl 3 mg 10/08/17 10:47 10/10/17 18:53 Dilaudid Injection - IVPB 3 mg Q3H PRN Administration PAIN Sodium Chloride 1,000 mls @ 75 mls/hr 10/10/17 18:44 Normal Saline - IV ASDIR DEBBIE Pantoprazole Sodium 40 mg 10/08/17 10:00 10/10/17 09:18 Protonix - PO 40 mg DAILY DEBBIE Administration Zinc Sulfate 220 mg 10/08/17 10:00 10/10/17 09:18 Orazinc - PO 220 mg DAILY DEBBIE Administration A/P 31 y/o patient with sickle cell disease, vaso occlusive crisis pain control/folic acid/dvt prophylaxis/incentive spirometer decreased iv fluids mild epigastric pain--on protonix GI f/u
[2017-10-11] MEDS: HYDROmorphone HCL CARPU-JECT 2 MG/1 ML DISP.SYRIN IVPB PRN ×6 (01:42→22:06)
[2017-10-11] MEDS: diphenhydrAMINE HCL 25 MG CAPSULE (FP) PO SCH ×3 (05:24→21:18)
[2017-10-11] MEDS ORDERED: POLYETHYLENE GLYCOL 3350 119 GM BTL PO ONE (05:46)
[2017-10-11 07:58] LABS: BASOPHIL 1.1 % (0-2.0); EOSINOPHIL 5.8 % (0-4.5); MCHC 36.8 g/dl (32.0-36.0); MEAN CELL VOLUME 78.9 fl (80-96); MEAN PLT VOLUME 7.7 fl (7.5-11.1); NEUTROPHILS 57.7 % (42.8-82.8); PLATELET COUNT 307 K/MM3 (134-434); RDW 20.3 % (11.6-15.6); WHITE BLOOD COUNT 12.5 K/mm3 (4.0-10.0)
[2017-10-11 08:31] LABS: AMYLASE 36 U/L (25-115)
[2017-10-11 08:56] LABS: HYPOCHROMIA 2+; POIKILOCYTOSIS 2+
[2017-10-11 08:57] LABS: ANISOCYTOSIS 2+; MICROCYTOSIS 1+; TARGET CELLS 1+
[2017-10-11] MEDS: ENOXAPARIN NA (PORCINE) 40 MG/0.4 ML DISP.SYRIN SQ SCH (09:40)
[2017-10-11] MEDS: ZINC SULFATE 220 MG CAPSULE (FP) PO SCH (09:40)
[2017-10-11] MEDS: PANTOPRAZOLE 40 MG TABLET (FP) PO SCH (09:40)
[2017-10-11] MEDS: FOLIC ACID 1 MG TABLET (FP) PO SCH (09:40)
[2017-10-11] MEDS ORDERED: SODIUM CHLORIDE 1,000 ML IV SCH (13:01)
[2017-10-11] MEDS ORDERED: cefTRIAXone SODIUM 1 GM VIAL IM ONE (13:46)
[2017-10-11] MEDS ORDERED: AZITHROMYCIN IVPB 500 MG in DEXTROSE 5%-WATER - 250 ML IVPB ONE (13:46)
[2017-10-11] MEDS: POLYETHYLENE GLYCOL 3350 119 GM BTL PO SCH (13:49)
--- NOTE | 2017-10-11 13:53 | PN ---
Physical Exam: SUBJECTIVE: Patient seen and examined. She states her pain is improved, however still feels mid sternal chest discomfort "inside." Denies fever, cough, wheezing , back pain. OBJECTIVE: Vital Signs Period Temp Pulse Resp BP Sys/Quijano Pulse Ox Last 24 Hr 88 F-99.5 F 66-78 20-20 93-127/42-68 95 PE Neuro: alert, awake, cn 2-12intact HEENT: LEJ Pulm: L base diminished, crackles, R clear Abd: s nt nd + bs Ext: L lateral ankle wound, 5x2.5cm, serous drainage, +1 pitting edema Laboratory Results - last 24 hr 10/07/17 10/10/17 10/11/17 15:55 13:55 06:00 WBC 12.5 H RBC 2.42 L Hgb 7.0 L Hct 19.1 L MCV 78.9 L MCH 29.0 MCHC 36.8 H RDW 20.3 H Plt Count 307 MPV 7.7 Neutrophils % 57.7 Lymphocytes % 20.8 Monocytes % 14.6 H Eosinophils % 5.8 H Basophils % 1.1 Hypochromia 2+ Poikilocytosis 2+ Anisocytosis 2+ Microcytosis 1+ Sickle Cells 3+ Target Cells 1+ Retic Count 6.12 H D LD Total Creatine Kinase 57 Troponin I < 0.02 Total Amylase Lipase Blood Type O POSITIVE Antibody Screen Negative Crossmatch See Detail 10/11/17 10/11/17 06:00 06:00 WBC RBC Hgb Hct MCV MCH MCHC RDW Plt Count MPV Neutrophils % Lymphocytes % Monocytes % Eosinophils % Basophils % Hypochromia Poikilocytosis Anisocytosis Microcytosis Sickle Cells Target Cells Retic Count LD Total 385 H Creatine Kinase Troponin I Total Amylase 36 Lipase 80 Blood Type Antibody Screen Crossmatch Active Medications Generic Name Dose Route Start Last Admin Trade Name Freq PRN Reason Stop Dose Admin Ceftriaxone Sodium 1 gm 10/11/17 13:46 Rocephin - IM 10/11/17 13:47 ONCE ONE Diphenhydramine HCl 25 mg 10/07/17 22:00 10/11/17 05:24 Benadryl - PO 25 mg TID DEBBIE Administration Enoxaparin Sodium 40 mg 10/08/17 13:30 10/11/17 09:40 Lovenox - SQ 40 mg DAILY DEBBIE Administration Folic Acid 1 mg 10/08/17 10:00 10/11/17 09:40 Folic Acid - PO 1 mg DAILY DEBBIE Administration Hydromorphone HCl 3 mg 10/08/17 10:47 10/11/17 09:38 Dilaudid Injection - IVPB 3 mg Q3H PRN Administration PAIN Sodium Chloride 1,000 mls @ 50 mls/hr 10/11/17 13:01 Normal Saline - IV ASDIR DEBBIE Azithromycin 500 mg/ Dextrose 250 mls @ 250 mls/hr 10/11/17 13:46 IVPB 10/11/17 14:45 ONCE ONE Azithromycin 250 mg/ Dextrose 250 mls @ 250 mls/hr 10/12/17 10:00 IVPB 10/16/17 09:59 DAILY DEBBIE Pantoprazole Sodium 40 mg 10/08/17 10:00 10/11/17 09:40 Protonix - PO 40 mg DAILY DEBBIE Administration Polyethylene Glycol 17 gm 10/11/17 13:45 Miralax (For Daily Use) - PO DAILY DEBBIE Zinc Sulfate 220 mg 10/08/17 10:00 10/11/17 09:40 Orazinc - PO 220 mg DAILY DEBBIE Administration Assessment: 31 year old female with a PMHx of sickle cell anemia (last sickle cell crisis -06/2017) with avascular necrosis of the hip and a chronic non- healing foot ulcer admitted after rapid response in hyperbarics for acute pain crisis. Plan: 1. Acute sickle cell crisis - Retic count improving, crisis resolving - Pain improved - Chest discomfort remains - CXR with increase L base effusion - Start empiric ceftriaxone, azithro - CXR in am - Dilaudid 3mg q3hr - Folic acid daily - IVF 60cc/hr - Pulmonary/ID consulted - Do not start hydroxurea due to LE ulcer, contraindicated with wound healing - D/w heme/onc 2. Acute blood loss anemia - Hgb down - Hold on transfusion - Transfused 2uprbc 10/08, - Baseline hgb per pt 7.4-8 3. Chronic LE Ulcers - Secondary to severe sickle cell anemia - Dressing change today by pt - Patient follows up with wound care clinic and hyperbarics, Dr. Friend - Continue home PO Zinc 4. History of Gastric Ulcers - Patient reports having EGD done before that showed gastric ulcers and has follow up for one next week - Continue Protonix 40mg daily 5. DVT ppx - Lovenox sq Visit type - Emergency Visit Emergency Visit: Yes ED Registration Date: 10/10/17 Care time: The patient presented to the Emergency Department on the above date and was hospitalized for further evaluation of their emergent condition. - New Patient This patient is new to me today: No - Critical Care Critical Care patient: No
--- NOTE | 2017-10-11 14:02 | CONSULT ---
Consultation: Pulmonary consult , resident REQUESTING PROVIDER: CONSULT REQUEST: We have been asked to medically evaluate this patient for possible pneumonia (bibasilar atelectasis ). HISTORY OF PRESENT ILLNESS: Patient with h/o sickle cell presented with shoulder, chest and hip pain. Denies SOB. last crisis in may 2017. No taking hydroxyurea due to wound treatment. Patient had recent rapid response episode in hyperbaric therapy today. REVIEW OF SYSTEMS: CONSTITUTIONAL: Absent: fever, chills, diaphoresis,+ generalized weakness, malaise, loss of appetite, weight change HEENT: Absent: rhinorrhea, nasal congestion, throat pain, throat swelling, difficulty swallowing, mouth swelling, ear pain, eye pain, visual changes CARDIOVASCULAR: Absent:+ chest pain, syncope, palpitations, irregular heart rate, lightheadedness,+ peripheral edema RESPIRATORY: Absent: +cough, +shortness of breath, dyspnea with exertion, orthopnea, wheezing , stridor, hemoptysis GASTROINTESTINAL: Absent: abdominal pain, abdominal distension, nausea, vomiting, diarrhea, constipation, melena, hematochezia GENITOURINARY: Absent: dysuria, frequency, urgency, hesitancy, hematuria, flank pain, genital pain MUSCULOSKELETAL: Absent: myalgia, arthralgia, joint swelling, back pain, neck pain SKIN: Absent: rash, itching, pallor HEMATOLOGIC/IMMUNOLOGIC: Absent: easy bleeding, easy bruising, lymphadenopathy, frequent infections ENDOCRINE: Absent: unexplained weight gain, unexplained weight loss, heat intolerance, cold intolerance NEUROLOGIC: Absent: headache, focal weakness or paresthesias, dizziness, unsteady gait, seizure, mental status changes, bladder or bowel incontinence PSYCHIATRIC: Absent: anxiety, depression, suicidal or homicidal ideation, hallucinations. PHYSICAL EXAMINATION GENERAL: The patient is awake, alert, and fully oriented, in moderate distress. HEAD: Normal with no signs of trauma. EYES: , sclera icteric, conjunctiva clear. ENT: moist mucous membranes. NECK: Trachea midline, full range of motion, supple. PICC line in palce LUNGS: diminished breath sound, no wheezes, no crackles, no accessory muscle use. HEART: Regular rate and rhythm, S1, S2 soft murmur 1-2/6 , No rub or gallop. ABDOMEN: Soft, nontender, nondistended, normoactive bowel sounds, EXTREMITIES: warm, well-perfused, + edema. left feet later wound covered. NEUROLOGICAL: No focal deficits, Normal speech, gait not observed. PSYCH: Normal mood, normal affect. SKIN: Warm, dry, no rashes or lesions noted Vital Signs - 24 hr 10/10/17 10/10/17 10/10/17 14:53 20:47 21:00 Temperature 98.7 F 98.7 F Pulse Rate 75 74 Respiratory 20 20 20 Rate Blood Pressure 93/42 95/52 O2 Sat by Pulse 95 Oximetry (%) 10/10/17 10/11/17 10/11/17 21:35 01:00 06:00 Temperature 88 F L 99.5 F 98.3 F Pulse Rate 76 67 78 Respiratory 20 20 20 Rate Blood Pressure 112/68 113/65 127/54 O2 Sat by Pulse Oximetry (%) 10/11/17 10:00 Temperature 98.7 F Pulse Rate 66 Respiratory 20 Rate Blood Pressure 101/63 O2 Sat by Pulse Oximetry (%) Laboratory Results - last 24 hr 10/07/17 10/10/17 10/11/17 15:55 13:55 06:00 WBC 12.5 H RBC 2.42 L Hgb 7.0 L Hct 19.1 L MCV 78.9 L MCH 29.0 MCHC 36.8 H RDW 20.3 H Plt Count 307 MPV 7.7 Neutrophils % 57.7 Lymphocytes % 20.8 Monocytes % 14.6 H Eosinophils % 5.8 H Basophils % 1.1 Hypochromia 2+ Poikilocytosis 2+ Anisocytosis 2+ Microcytosis 1+ Sickle Cells 3+ Target Cells 1+ Retic Count 6.12 H D LD Total Creatine Kinase 57 Troponin I < 0.02 Total Amylase Lipase Blood Type O POSITIVE Antibody Screen Negative Crossmatch See Detail 10/11/17 10/11/17 06:00 06:00 WBC RBC Hgb Hct MCV MCH MCHC RDW Plt Count MPV Neutrophils % Lymphocytes % Monocytes % Eosinophils % Basophils % Hypochromia Poikilocytosis Anisocytosis Microcytosis Sickle Cells Target Cells Retic Count LD Total 385 H Creatine Kinase Troponin I Total Amylase 36 Lipase 80 Blood Type Antibody Screen Crossmatch Active Medications Generic Name Dose Route Start Last Admin Trade Name Freq PRN Reason Stop Dose Admin Ceftriaxone Sodium 1 gm 10/11/17 13:46 Rocephin - IM 10/11/17 13:47 ONCE ONE Diphenhydramine HCl 25 mg 10/07/17 22:00 10/11/17 13:49 Benadryl - PO 25 mg TID DEBBIE Administration Enoxaparin Sodium 40 mg 10/08/17 13:30 10/11/17 09:40 Lovenox - SQ 40 mg DAILY DEBBIE Administration Folic Acid 1 mg 10/08/17 10:00 10/11/17 09:40 Folic Acid - PO 1 mg DAILY DEBBIE Administration Hydromorphone HCl 3 mg 10/08/17 10:47 10/11/17 13:48 Dilaudid Injection - IVPB 3 mg Q3H PRN Administration PAIN Sodium Chloride 1,000 mls @ 50 mls/hr 10/11/17 13:01 Normal Saline - IV ASDIR DEBBIE Azithromycin 500 mg/ Dextrose 250 mls @ 250 mls/hr 10/11/17 13:46 IVPB 10/11/17 14:45 ONCE ONE Azithromycin 250 mg/ Dextrose 250 mls @ 250 mls/hr 10/12/17 10:00 IVPB 10/16/17 09:59 DAILY DEBBIE Pantoprazole Sodium 40 mg 10/08/17 10:00 10/11/17 09:40 Protonix - PO 40 mg DAILY DEBBIE Administration Polyethylene Glycol 17 gm 10/11/17 13:45 10/11/17 13:49 Miralax (For Daily Use) - PO 17 gm DAILY DEBBIE Administration Zinc Sulfate 220 mg 10/08/17 10:00 10/11/17 09:40 Orazinc - PO 220 mg DAILY DEBBIE Administration CBC, BMP 10/11/17 06:00 10/09/17 06:35 Intake & Output 10/10/17 10/11/17 10/11/17 23:59 07:59 15:59 Intake Total 150 650 Balance 150 650 Microbiology 10/07/17 21:00 Urine - Urine Clean Catch Urine Culture - Final Contaminated: Please Repeat Chest Xray 10/11/17 : Progressive left base changes, progressive infiltrate and atelectasis with fluids on left base since previous image on Chest Xray 10/10/2017 : small bilateral pleural effusion with underlying opacities most likely atelectasis, underlying pneumonia can not be rulled out. ASSESSMENT/PLAN: 31 year old female with a PMHx of sickle cell anemia (last sickle cell crisis -06/2017) with avascular necrosis of the hip and a chronic non-healing foot ulcer admitted after rapid response in hyperbarics for acute pain crisis. # Acute sickle cell crisis # Acute blood loss anemia with Baseline hgb per pt 7.4-8, S/p 2 units PRBC 10/08 # Chronic LE Ulcers 2/2 scd crisis #History of Gastric Ulcers #Pneumonia : * f/u Cxr in AM * Consider CT chest * ID on board , Hem on board * abx per ID ceftriaxone/azithromycin * Pain control * duoneb * Incentive spirometry * o2 as needed * Bronchodilators * decrease iv fluids and switch to 1/2 NS @ 125 cc/hr * Hydoxyuria held due to foot ulcer wound (contraindications) * Continue folic acid, angela and wound care Dispo: We will continue to follow the patient. Thank you for this consultative opportunity. Visit type - Emergency Visit Emergency Visit: Yes ED Registration Date: 10/10/17 Care time: The patient presented to the Emergency Department on the above date and was hospitalized for further evaluation of their emergent condition. - New Patient This patient is new to me today: Yes Date on this admission: 10/11/17 - Critical Care Critical Care patient: No
--- NOTE | 2017-10-11 14:23 | PROC ---
Central Line Insertion - Procedure Note TIME OUT performed prior to this procedure with verbal confirmation of correct patient identity, correct side, agreement of the procedure, correct patient position, availability of necessary equipment. INR 1.34. The consent form is complete and accurate. Risk of possible infection, bleeding and pneumothorax have been discussed with the patient. Safety precautions based on patient history or medication use has been addressed. Indication: Poor Venous Access Central Line: Triple Lumen Catheter Position: Supine Area prepped with Chlorhexidine solution then draped using sterile barrier protection. Anesthesia: Lidocaine 1% Technique used: Seldinger Ultrasound Guided Assistance: Yes Site: Right Internal Jugular Dark venous, non-pulsatile flow noted from hub of needle. The catheter was introduced. Guide wire removed intact. Each port aspirated then flushed with sterile normal saline and capped. Line secured to skin with silk suture. Biopatch placed around base of line. Sterile occlusive dressing applied. No complications. Patient tolerated the procedure well. STAT chest xray ordered to confirm position and rule out pneumothorax
[2017-10-11] MEDS ORDERED: CEFTRIAXONE 1 GM in DEXTROSE 5%-WATER - 50 ML IVPB SCH (14:30)
--- NOTE | 2017-10-11 15:15 | CON.GI ---
Consult Consult Specialty:: GI Reason for Consultation:: hx of gastric ulcers - History of Present Illness History of Present Illness: chart reviewed, events noted. A 31 yof admitted for SCC. Improving. History revealed NSAID-related 3 gastric ulcers on EGD in May 2017. NSAIDs were stopped and Protonix started at that time. A follow up EGD could not done due to no IV access, as per patient. She was advised to continue PPI. She reports intermittent dyspepsia, no dysphagia, odynophagia, nausea, vomiting, or history of food impaction. No meolena, hematochezia, hematemesis. - History Source History Provided By: Patient Limitations to Obtaining History: No Limitations - Past Medical History ...: No - Alcohol/Substance Use Hx Alcohol Use: No - Smoking History Smoking history: Never smoked Aproximately how many cigarettes per day: 0 Home Medications - Allergies Allergies/Adverse Reactions: Allergies Allergy/AdvReac Type Severity Reaction Status Date / Time bacitracin Allergy Verified 10/07/17 15:50 morphine Allergy Verified 10/07/17 15:50 - Home Medications Home Medications: Ambulatory Orders Ascorbic Acid [Vitamin C -] 500 mg PO BID 10/07/17 Diphenhydramine HCl [Benadryl -] 25 mg PO Q6H 10/07/17 Folic Acid - 1 mg PO DAILY 10/07/17 Hydromorphone [Dilaudid -] 4 mg PO Q4H PRN 10/07/17 Pantoprazole Sodium [Protonix -] 40 mg PO DAILY 10/07/17 Zinc Sulfate 220 mg PO DAILY 10/07/17 Family Disease History - Family Disease History Family History: Unremarkable Review of Systems Findings/Remarks: please refer to H&P Physical Exam-GI Vital Signs: Vital Signs Temperature 98.7 F 10/11/17 10:00 Pulse Rate 66 10/11/17 10:00 Respiratory Rate 20 10/11/17 10:00 Blood Pressure 101/63 10/11/17 10:00 O2 Sat by Pulse Oximetry (%) 95 10/10/17 21:00 Constitutional: Yes: Well Nourished, No Distress, Calm Eyes: Yes: Conjunctiva Clear HENT: Yes: Atraumatic Neck: Yes: Other (CVL) Cardiovascular: Yes: Regular Rate and Rhythm Respiratory: Yes: Regular Gastrointestinal Inspection: No: Distention ...Auscultate: Yes: Normoactive Bowel Sounds ...Palpate: Yes: Soft. No: Firm/Rigid, Guarding, Mass, Tenderness, Tenderness, Epigastium, Tenderness, Rebound Neurological: Yes: Alert, Oriented Labs: CBC, BMP 10/11/17 06:00 10/09/17 06:35 INR, PTT INR 1.34 (0.82-1.09) H 10/08/17 06:10 CBCD WBC 12.5 K/mm3 (4.0-10.0) H 10/11/17 06:00 RBC 2.42 M/mm3 (3.60-5.2) L 10/11/17 06:00 Hgb 7.0 GM/dL (10.7-15.3) L 10/11/17 06:00 Hct 19.1 % (32.4-45.2) L 10/11/17 06:00 MCV 78.9 fl (80-96) L 10/11/17 06:00 MCHC 36.8 g/dl (32.0-36.0) H 10/11/17 06:00 RDW 20.3 % (11.6-15.6) H 10/11/17 06:00 Plt Count 307 K/MM3 (134-434) 10/11/17 06:00 MPV 7.7 fl (7.5-11.1) 10/11/17 06:00 CMP Sodium 144 mmol/L (136-145) 10/09/17 06:35 Potassium 4.2 mmol/L (3.5-5.1) 10/09/17 06:35 Chloride 112 mmol/L (98-107) H 10/09/17 06:35 Carbon Dioxide 21 mmol/L (21-32) 10/09/17 06:35 Anion Gap 11 (8-16) 10/09/17 06:35 BUN 5 mg/dL (7-18) L D 10/09/17 06:35 Creatinine 0.4 mg/dL (0.55-1.02) L D 10/09/17 06:35 Creat Clearance w eGFR > 60 (>60) 10/09/17 06:35 Calcium 8.0 mg/dL (8.5-10.1) L 10/09/17 06:35 Total Bilirubin 6.4 mg/dL (0.2-1.0) H 10/09/17 06:35 AST 34 U/L (15-37) D 10/09/17 06:35 ALT 14 U/L (12-78) 10/09/17 06:35 Alkaline Phosphatase 50 U/L (45-117) 10/09/17 06:35 Total Protein 5.6 g/dl (6.4-8.2) L 10/09/17 06:35 Albumin 3.3 g/dl (3.4-5.0) L 10/09/17 06:35 Problem List - Problems (1) History of ulceration Code(s): Z87.898 - PERSONAL HISTORY OF OTHER SPECIFIED CONDITIONS (2) History of ulcer disease Code(s): Z87.898 - PERSONAL HISTORY OF OTHER SPECIFIED CONDITIONS (3) Gastric ulcer Code(s): K25.9 - GASTRIC ULCER, UNSP ACUTE OR CHRONIC, W/O HEMOR OR PERF Assessment/Plan EGD is indicated to asses healing of gastric ulcers diagnosed 3-4 months ago and need to continue PPI. Discussed with the patient. Plan EGD when acute issues are under control.
--- NOTE | 2017-10-11 15:59 | PN ---
Teaching Attending Note Name of Resident: Adolph Eden ATTENDING PHYSICIAN STATEMENT I saw and evaluated the patient. I reviewed the resident's note and discussed the case with the resident. I agree with the resident's findings and plan as documented. SUBJECTIVE: Pt seen and examined with the resident. Briefly, 31 year old female with h/o sickle cell disease who was admitted with chest, hip pain typical of her sickle cell crises. During the admission, her CXR has been worsening now with bibasilar atelectasis, left effusion. Has received 1 unit PRBC. No fevers or chills. No cough. Some shortness of breath. She has had history of acute chest syndrome. OBJECTIVE: Last Vital Signs Temp Pulse Resp BP Pulse Ox 98.5 F 78 20 113/72 95 10/11/17 14:00 10/11/17 14:00 10/11/17 14:00 10/11/17 14:00 10/10/17 21:00 Intake & Output 10/08/17 10/09/17 10/10/17 10/11/17 23:59 23:59 23:59 23:59 Intake Total 4900 5090 4250 650 Balance 4900 5090 4250 650 Gen: NAD at rest Heart: RRR, +systolic murmur Lung: decreased breath sounds at the bases Abd: soft, nontender Ext: no edema CBC, BMP 10/11/17 06:00 10/09/17 06:35 Active Medications Diphenhydramine HCl (Benadryl -) 25 mg PO TID [facility] Last Admin: 10/11/17 13:49 Dose: 25 mg Enoxaparin Sodium (Lovenox -) 40 mg SQ DAILY DEBBIE Last Admin: 10/11/17 09:40 Dose: 40 mg Folic Acid (Folic Acid -) 1 mg PO DAILY [facility] Last Admin: 10/11/17 09:40 Dose: 1 mg Hydromorphone HCl (Dilaudid Injection -) 3 mg IVPB Q3H PRN PRN Reason: PAIN Last Admin: 10/11/17 13:48 Dose: 3 mg Azithromycin 250 mg/ Dextrose 250 mls @ 250 mls/hr IVPB DAILY [facility] Stop: 10/16/17 09:59 CEFTRIAXONE 1 G/50 ML PREMIX (Ceftriaxone 1 Gm-D5w Bag) 50 mls @ 100 mls/hr IVPB DAILY [facility] Stop: 10/13/17 10:29 Sodium Chloride (1/2 Normal Saline) 1,000 mls @ 125 mls/hr IV ASDIR DEBBIE Pantoprazole Sodium (Protonix -) 40 mg PO DAILY DEBBIE Last Admin: 10/11/17 09:40 Dose: 40 mg Polyethylene Glycol (Miralax (For Daily Use) -) 17 gm PO DAILY DEBBIE Last Admin: 10/11/17 13:49 Dose: 17 gm Zinc Sulfate (Orazinc -) 220 mg PO DAILY [facility] Last Admin: 10/11/17 09:40 Dose: 220 mg ASSESSMENT AND PLAN: Sickle Cell Crisis Atelectasis r/o Pneumonia Anemia LE Ulcers - encouraged incentive spirometry - pain control - ambulate - supplemental O2 - hypotonic saline - on empiric antibiotics - f/u cultures - monitor H/H - transfuse as needed - folic acid - DVT prophylaxis Thank you for this consult Kevin Poon MD
[2017-10-11] MEDS: SODIUM CHLORIDE 0.45% 1,000 ML IV SCH (16:04)
--- NOTE | 2017-10-11 16:55 | PN ---
Progress Note (short form) - Note Progress Note: pt seen and examined +pleuritic chest pain mild SOB , -cough for CXR PAtient seen and examined HAd some chest pain earlier in the day No SOB?cogh currently Not in any distress O/E: General; NAD cor: RSR, No murmurs, No gallops Lungs: Clear to P&A Abd: Soft, Normal bowel sounds, mild epigastric tenderness Ext:No significant edema, ulcers in dressing in the LLE Last Vital Signs Temp Pulse Resp BP Pulse Ox 98.5 F 78 20 113/72 95 10/11/17 14:00 10/11/17 14:00 10/11/17 14:00 10/11/17 14:00 10/10/17 21:00 CBC, BMP 10/11/17 06:00 10/09/17 06:35 Current Medications Generic Name Dose Route Start Last Admin Trade Name Freq PRN Reason Stop Dose Admin Diphenhydramine HCl 25 mg 10/07/17 22:00 10/11/17 13:49 Benadryl - PO 25 mg TID DEBBIE Administration Enoxaparin Sodium 40 mg 10/08/17 13:30 10/11/17 09:40 Lovenox - SQ 40 mg DAILY DEBBIE Administration Folic Acid 1 mg 10/08/17 10:00 10/11/17 09:40 Folic Acid - PO 1 mg DAILY DEBBIE Administration Hydromorphone HCl 3 mg 10/08/17 10:47 10/11/17 13:48 Dilaudid Injection - IVPB 3 mg Q3H PRN Administration PAIN Azithromycin 250 mg/ Dextrose 250 mls @ 250 mls/hr 10/12/17 10:00 IVPB 10/16/17 09:59 DAILY DEBBIE CEFTRIAXONE 1 G/50 ML PREMIX 50 mls @ 100 mls/hr 10/11/17 14:30 Ceftriaxone 1 Gm-D5w Bag IVPB 10/13/17 10:29 DAILY DEBBIE Sodium Chloride 1,000 mls @ 125 mls/hr 10/11/17 15:45 10/11/17 16:04 1/2 Normal Saline IV 125 mls/hr ASDIR DEBBIE Administration Pantoprazole Sodium 40 mg 10/08/17 10:00 10/11/17 09:40 Protonix - PO 40 mg DAILY DEBBIE Administration Polyethylene Glycol 17 gm 10/11/17 13:45 10/11/17 13:49 Miralax (For Daily Use) - PO 17 gm DAILY DEBBIE Administration Zinc Sulfate 220 mg 10/08/17 10:00 10/11/17 09:40 Orazinc - PO 220 mg DAILY DEBBIE Administration 31 y/o patient with sickle cell disease, vaso occlusive crisis pain control/folic acid/dvt prophylaxis/incentive spirometer Now with intermittent pleurtic pain, CXR reviewed, appreciate GI/Pulm eval will ask ID eval dose of cef/azithro at risk for ACS will f/u labs from tomorrow, basic , LFTs too no transfusion for today will see if we could add on hgEP from admission day labs.
--- NOTE | 2017-10-11 17:34 | PN ---
Progress Note (short form) - Note Progress Note: ID Consult dictated Acute sickle cell vaso-occlusive crisis Acute chest syndrome ? Pneumonia Obtain cultures Empiric ceftriaxone/ zithromax
[2017-10-11] MEDS ORDERED: TRIAMCINOLONE ACET 0.1% CREAM 15 GM TUBE TP ONE (20:01)
[2017-10-12] MEDS: HYDROmorphone HCL CARPU-JECT 2 MG/1 ML DISP.SYRIN IVPB PRN ×7 (01:32→21:31)
[2017-10-12] MEDS: SODIUM CHLORIDE 0.45% 1,000 ML IV SCH ×2 (04:05→16:25)
[2017-10-12] MEDS: diphenhydrAMINE HCL 25 MG CAPSULE (FP) PO SCH ×3 (06:01→21:31)
[2017-10-12 08:00] LABS: BASOPHIL 0.5 % (0-2.0); EOSINOPHIL 4.7 % (0-4.5); MCH 28.8 pg (25.7-33.7); MCHC 36.4 g/dl (32.0-36.0); MEAN CELL VOLUME 79.2 fl (80-96); MEAN PLT VOLUME 7.6 fl (7.5-11.1); NEUTROPHILS 53.9 % (42.8-82.8); WHITE BLOOD COUNT 11.2 K/mm3 (4.0-10.0)
[2017-10-12 08:18] LABS: ALBUMIN 3.3 g/dl (3.4-5.0); ALK PHOS 52 U/L (45-117); ANION GAP 5 (8-16); BILIRUBIN,TOTAL 6.7 mg/dL (0.2-1.0); CALCIUM 8.2 mg/dL (8.5-10.1); CO2 29 mmol/L (21-32); CREATININE 0.4 mg/dL (0.55-1.02); GLUCOSE,RANDOM 80 mg/dL (74-106); LDH 445 U/L (84-246); SGOT/AST 34 U/L (15-37); SGPT/ALT 19 U/L (12-78); TOT PROT 5.7 g/dl (6.4-8.2)
[2017-10-12] MEDS ORDERED: PT OWN MED DRAWER 7, Y5N ONE (09:07)
[2017-10-12] MEDS: PANTOPRAZOLE 40 MG TABLET (FP) PO SCH (09:14)
[2017-10-12] MEDS: FOLIC ACID 1 MG TABLET (FP) PO SCH (09:15)
[2017-10-12] MEDS: ZINC SULFATE 220 MG CAPSULE (FP) PO SCH (09:15)
[2017-10-12] MEDS: CEFTRIAXONE 1 G/50 ML PREMIX 50 ML IVPB SCH (09:16)
[2017-10-12] MEDS: ENOXAPARIN NA (PORCINE) 40 MG/0.4 ML DISP.SYRIN SQ SCH (09:16)
--- NOTE | 2017-10-12 09:46 | PN ---
Progress Note, Physician History of Present Illness: No events. comfortable. - Current Medication List Current Medications: Active Medications Diphenhydramine HCl (Benadryl -) 25 mg PO TID [facility] Last Admin: 10/12/17 06:01 Dose: 25 mg Enoxaparin Sodium (Lovenox -) 40 mg SQ DAILY [facility] Last Admin: 10/12/17 09:16 Dose: 40 mg Folic Acid (Folic Acid -) 1 mg PO DAILY [facility] Last Admin: 10/12/17 09:15 Dose: 1 mg Hydromorphone HCl (Dilaudid Injection -) 3 mg IVPB Q3H PRN PRN Reason: PAIN Last Admin: 10/12/17 08:53 Dose: 3 mg Azithromycin 250 mg/ Dextrose 250 mls @ 250 mls/hr IVPB DAILY [facility] Stop: 10/16/17 09:59 CEFTRIAXONE 1 G/50 ML PREMIX (Ceftriaxone 1 Gm-D5w Bag) 50 mls @ 100 mls/hr IVPB DAILY [facility] Stop: 10/13/17 10:29 Last Admin: 10/12/17 09:16 Dose: 100 mls/hr Sodium Chloride (1/2 Normal Saline) 1,000 mls @ 125 mls/hr IV ASDIR [facility] Last Admin: 10/12/17 04:05 Dose: 125 mls/hr Pantoprazole Sodium (Protonix -) 40 mg PO DAILY [facility] Last Admin: 10/12/17 09:14 Dose: 40 mg Polyethylene Glycol (Miralax (For Daily Use) -) 17 gm PO DAILY [facility] Last Admin: 10/11/17 13:49 Dose: 17 gm Zinc Sulfate (Orazinc -) 220 mg PO DAILY [facility] Last Admin: 10/12/17 09:15 Dose: 220 mg - Objective Vital Signs: Vital Signs Temperature 98.8 F 10/12/17 05:57 Pulse Rate 74 10/12/17 05:57 Respiratory Rate 20 10/12/17 05:57 Blood Pressure 103/70 10/12/17 05:57 O2 Sat by Pulse Oximetry (%) 94 L 10/11/17 20:15 Constitutional: Yes: Well Nourished, No Distress, Calm Gastrointestinal: Yes: Soft. No: Tenderness Labs: CBC, BMP 10/12/17 06:00 10/12/17 06:00 INR, PTT INR 1.34 (0.82-1.09) H 10/08/17 06:10 Problem List - Problems (1) History of ulceration Code(s): Z87.898 - PERSONAL HISTORY OF OTHER SPECIFIED CONDITIONS (2) History of ulcer disease Code(s): Z87.898 - PERSONAL HISTORY OF OTHER SPECIFIED CONDITIONS (3) Gastric ulcer Code(s): K25.9 - GASTRIC ULCER, UNSP ACUTE OR CHRONIC, W/O HEMOR OR PERF Assessment/Plan EGD is indicated to asses healing of gastric ulcers diagnosed 3-4 months ago and need to continue PPI. Plan EGD for tomorrow. Discussed with the patient
--- NOTE | 2017-10-12 10:01 | CONS ---
DATE OF CONSULTATION: 10/11/2017 HISTORY OF PRESENT ILLNESS: The patient is a 31-year-old female with a history of sickle cell anemia evaluated for possible pneumonia. The patient has a long history of sickle cell anemia. She was receiving hyperbaric oxygen treatments in the wound care center for nonhealing left lower extremity ulcer. While there, she developed acute onset of chest pain, shoulder pain, and hip pain. She was transferred to the emergency room where she was diagnosed with an acute painful vaso-occlusive crisis. The patient was admitted to the hospital. She was given IV fluids and supplemental oxygen. She required a transfusion of packed red blood cells. Her clinical course has been significant for worsening chest x-ray with increasing left pleural effusion and bibasilar atelectasis. She was empirically treated with Zithromax and ceftriaxone. At the present time, she has no complaints of shortness of breath. She denies any cough or sputum production, no hemoptysis. She denies any fever or chills. PAST MEDICAL HISTORY: Positive for sickle cell anemia with history of painful vaso-occlusive crises, history of avascular necrosis of the hip and nonhealing left foot ulcer. ALLERGIES: To BACITRACIN and MORPHINE. MEDICATIONS: Include Zithromax, ceftriaxone, Lovenox, Benadryl, Dilaudid, Protonix. SOCIAL HISTORY: She resides at home. She is a nonsmoker/nondrinker. SYSTEMS REVIEW: Neurologic: No loss of consciousness, seizure activity, or focal weakness. Cardiac: As per HPI. Respiratory: As per HPI. Gastrointestinal: Negative for vomiting or diarrhea. Genitourinary: Negative for urinary tract infection. LABORATORY DATA: White count 12.5, hematocrit 19.1, platelet count 307. BUN 5, creatinine 0.4, total bilirubin 6.4, alkaline phosphatase 50, AST 34. Urinalysis negative leukocyte esterase. Urine culture contaminated. Chest x-ray shows increasing left pleural effusion and bibasilar atelectasis. PHYSICAL EXAMINATION: General: She is awake and alert. She is not acutely toxic-appearing. Vital signs: Temperature 98.5, blood pressure 113/72, pulse 78 and regular, respirations 20 per minute. HEENT: Sclerae mildly icteric. Oropharynx negative. Neck: Supple. Heart: Heart sounds S1, S2. Pansystolic murmur 2/6. Lungs: Diminished breath sounds at the bases bilaterally. Abdomen: Soft. No tenderness elicited. No mass, rebound, or rigidity. Extremities: Negative for edema. Ulceration is present over the left lower extremity. No purulent drainage is noted. IMPRESSION: 1. Acute sickle cell vaso-occlusive crisis. 2. Acute chest syndrome. 3. Possible pneumonia. Suspect acute chest syndrome secondary to vaso-occlusive sickle cell crisis. Will obtain blood cultures, obtain sputum culture, urine legionella and pneumococcal antigens, empiric antibiotic coverage against encapsulated and atypical organisms with Zithromax and ceftriaxone, IV fluid hydration, transfuse blood products as needed. Will follow. Thank you for the kind referral. KATHRYN CONSTANTINO M.D. [id number]
[2017-10-12] MEDS: POLYETHYLENE GLYCOL 3350 119 GM BTL PO SCH (10:36)
[2017-10-12] MEDS: AZITHROMYCIN IVPB 250 MG in DEXTROSE 5%-WATER - 250 ML IVPB SCH (10:36)
[2017-10-12 11:16] LABS: ANISOCYTOSIS 2+; HYPOCHROMIA 2+; MICROCYTOSIS 2+; PLATELET COUNT 277 K/MM3 (134-434); POIKILOCYTOSIS 2+; POLYCHROMASIA 1+
--- NOTE | 2017-10-12 11:56 | PN ---
Progress Note, Physician History of Present Illness: Reports less chest discomfort No c/o dyspnea/ cough Afebrile - Current Medication List Current Medications: Active Medications Diphenhydramine HCl (Benadryl -) 25 mg PO TID [facility] Last Admin: 10/12/17 06:01 Dose: 25 mg Enoxaparin Sodium (Lovenox -) 40 mg SQ DAILY [facility] Last Admin: 10/12/17 09:16 Dose: 40 mg Folic Acid (Folic Acid -) 1 mg PO DAILY [facility] Last Admin: 10/12/17 09:15 Dose: 1 mg Hydromorphone HCl (Dilaudid Injection -) 3 mg IVPB Q3H PRN PRN Reason: PAIN Last Admin: 10/12/17 08:53 Dose: 3 mg Azithromycin 250 mg/ Dextrose 250 mls @ 250 mls/hr IVPB DAILY [facility] Stop: 10/16/17 09:59 Last Admin: 10/12/17 10:36 Dose: 250 mls/hr CEFTRIAXONE 1 G/50 ML PREMIX (Ceftriaxone 1 Gm-D5w Bag) 50 mls @ 100 mls/hr IVPB DAILY [facility] Stop: 10/13/17 10:29 Last Admin: 10/12/17 09:16 Dose: 100 mls/hr Sodium Chloride (1/2 Normal Saline) 1,000 mls @ 125 mls/hr IV ASDIR [facility] Last Admin: 10/12/17 04:05 Dose: 125 mls/hr Pantoprazole Sodium (Protonix -) 40 mg PO DAILY [facility] Last Admin: 10/12/17 09:14 Dose: 40 mg Polyethylene Glycol (Miralax (For Daily Use) -) 17 gm PO DAILY [facility] Last Admin: 10/12/17 10:36 Dose: 17 gm Zinc Sulfate (Orazinc -) 220 mg PO DAILY [facility] Last Admin: 10/12/17 09:15 Dose: 220 mg - Objective Vital Signs: Vital Signs Temperature 98.8 F 10/12/17 05:57 Pulse Rate 74 10/12/17 05:57 Respiratory Rate 20 10/12/17 05:57 Blood Pressure 103/70 10/12/17 05:57 O2 Sat by Pulse Oximetry (%) 94 L 10/11/17 20:15 Constitutional: Yes: No Distress Cardiovascular: Yes: Regular Rate and Rhythm, S1, S2 Respiratory: Yes: CTA Bilaterally, Other (decreased BS bases) Gastrointestinal: Yes: Normal Bowel Sounds, Soft. No: Tenderness Edema: No Integumentary: Yes: Other (3x2cm ulcer aal lateral malleolus no drainage) Labs: CBC, BMP 10/12/17 06:00 10/12/17 06:00 INR, PTT INR 1.34 (0.82-1.09) H 10/08/17 06:10 Assessment/Plan Acute chest syndrome, possible pneumonia Acute vaso- occlusive crisis Await c/s Continue zithromax/ ceftriaxone If continued/ persistant drop in Hct switch to levaquin (rare cases of hemolysis in sickle cell pts on ceftriaxone)
--- NOTE | 2017-10-12 12:11 | PN ---
Progress Note (short form) - Note Progress Note: PULMONARY AMBULATING IN HALLWAY WITH O2 VSS/AFEBRILE APPEARS WEAK ICTERIC DIMINISHED BREATH SOUNDS BASES S1S2 BS+ NO EDEMA LABS NOTED HGB 5.9 DOWN FROM 7.0 IMAGES/NOTES/MEDS REVIEWED Sickle Cell Crisis Atelectasis r/o Pneumonia Anemia LE Ulcers - encouraged incentive spirometry - pain control - ambulate - supplemental O2 - on empiric antibiotics - f/u cultures - monitor H/H - transfuse as needed - folic acid - DVT prophylaxis Lacho THOMAS MD
[2017-10-12] MEDS ORDERED: HYDROmorphone HCL 2 MG TABLET PO ONE (12:49)
--- NOTE | 2017-10-12 12:56 | PN ---
Physical Exam: SUBJECTIVE: Patient seen and examined at bedside. She is still complaining of pain in her lungs with breathing, complain of sever knee pain. denies any fever , chills, N/V. OBJECTIVE: Vital Signs Period Temp Pulse Resp BP Sys/Quijano Pulse Ox Last 24 Hr 98.5 F-99.2 F 74-78 20-20 100-113/48-72 94 GENERAL: The patient is awake, alert, and fully oriented, in moderate distress. HEAD: Normal with no signs of trauma. EYES: , sclera icteric, conjunctiva clear. ENT: moist mucous membranes. NECK: Trachea midline, full range of motion, supple. PICC line in palce LUNGS: diminished breath sound, no wheezes, no crackles, no accessory muscle use. HEART: Regular rate and rhythm, S1, S2 soft murmur 1-2/6 , No rub or gallop. ABDOMEN: Soft, nontender, nondistended, normoactive bowel sounds, EXTREMITIES: warm, well-perfused, + edema. left feet later wound covered. NEUROLOGICAL: No focal deficits, Normal speech, gait not observed. PSYCH: Normal mood, normal affect. SKIN: Warm, dry, no rashes or lesions noted Laboratory Results - last 24 hr 10/11/17 10/12/17 10/12/17 21:30 06:00 06:00 WBC 11.2 H RBC 2.07 L Hgb 5.9 L* D Hct 16.4 L MCV 79.2 L MCH 28.8 MCHC 36.4 H RDW 20.0 H Plt Count 277 MPV 7.6 Neutrophils % 53.9 Lymphocytes % 23.3 Monocytes % 17.6 H Eosinophils % 4.7 H Basophils % 0.5 Hypochromia 2+ Polychromasia 1+ Poikilocytosis 2+ Anisocytosis 2+ Microcytosis 2+ Sickle Cells 2+ Retic Count 8.13 H D Hemoglobin A Cancelled Hemoglobin A2 Cancelled Hemoglobin C Cancelled Hemoglobin S Cancelled Variant Hemoglobin Cancelled Hemoglobin Interpret Cancelled Maternal Rh Cancelled Hemoglobin Solubility Cancelled Sodium 140 Potassium 4.2 Chloride 106 Carbon Dioxide 29 D Anion Gap 5 L BUN 6 L Creatinine 0.4 L Creat Clearance w eGFR > 60 Random Glucose 80 Calcium 8.2 L Total Bilirubin 6.7 H AST 34 ALT 19 D Alkaline Phosphatase 52 LD Total 445 H Total Protein 5.7 L Albumin 3.3 L Blood Type Antibody Screen Crossmatch 10/12/17 09:45 WBC RBC Hgb Hct MCV MCH MCHC RDW Plt Count MPV Neutrophils % Lymphocytes % Monocytes % Eosinophils % Basophils % Hypochromia Polychromasia Poikilocytosis Anisocytosis Microcytosis Sickle Cells Retic Count Hemoglobin A Hemoglobin A2 Hemoglobin C Hemoglobin S Variant Hemoglobin Hemoglobin Interpret Maternal Rh Hemoglobin Solubility Sodium Potassium Chloride Carbon Dioxide Anion Gap BUN Creatinine Creat Clearance w eGFR Random Glucose Calcium Total Bilirubin AST ALT Alkaline Phosphatase LD Total Total Protein Albumin Blood Type O POSITIVE Antibody Screen Negative Crossmatch See Detail Active Medications Generic Name Dose Route Start Last Admin Trade Name Freq PRN Reason Stop Dose Admin Diphenhydramine HCl 25 mg 10/07/17 22:00 10/12/17 06:01 Benadryl - PO 25 mg TID DEBBIE Administration Enoxaparin Sodium 40 mg 10/08/17 13:30 10/12/17 09:16 Lovenox - SQ 40 mg DAILY DEBBIE Administration Folic Acid 1 mg 10/08/17 10:00 10/12/17 09:15 Folic Acid - PO 1 mg DAILY DEBBIE Administration Hydromorphone HCl 3 mg 10/08/17 10:47 10/12/17 12:06 Dilaudid Injection - IVPB 3 mg Q3H PRN Administration PAIN Hydromorphone HCl 3 mg 10/12/17 12:49 Dilaudid - PO 10/12/17 12:50 ONCE ONE Azithromycin 250 mg/ Dextrose 250 mls @ 250 mls/hr 10/12/17 10:00 10/12/17 10 :36 IVPB 10/16/17 09:59 250 mls/hr DAILY DEBBIE Administration CEFTRIAXONE 1 G/50 ML PREMIX 50 mls @ 100 mls/hr 10/11/17 14:30 10/12/17 09: 16 Ceftriaxone 1 Gm-D5w Bag IVPB 10/13/17 10:29 100 mls/hr DAILY DEBBIE Administration Sodium Chloride 1,000 mls @ 125 mls/hr 10/11/17 15:45 10/12/17 04:05 1/2 Normal Saline IV 125 mls/hr ASDIR DEBBIE Administration Pantoprazole Sodium 40 mg 10/08/17 10:00 10/12/17 09:14 Protonix - PO 40 mg DAILY DEBBIE Administration Polyethylene Glycol 17 gm 10/11/17 13:45 10/12/17 10:36 Miralax (For Daily Use) - PO 17 gm DAILY DEBBIE Administration Zinc Sulfate 220 mg 10/08/17 10:00 10/12/17 09:15 Orazinc - PO 220 mg DAILY DEBBIE Administration CBC, BMP 10/12/17 06:00 10/12/17 06:00 Microbiology 10/12/17 02:05 Urine For Antigen Detection Legionella Antigen - Final 10/12/17 02:05 Urine For Antigen Detection Streptococcus pneumoniae Antigen (M - Final 10/07/17 21:00 Urine - Urine Clean Catch Urine Culture - Final Contaminated: Please Repeat Chest Xray 10/11/17 : Progressive left base changes, progressive infiltrate and atelectasis with fluids on left base since previous image on Chest Xray 10/10/2017 : small bilateral pleural effusion with underlying opacities most likely atelectasis, underlying pneumonia can not be rulled out. ASSESSMENT/PLAN: 31 year old female with a PMHx of sickle cell anemia (last sickle cell crisis ) with avascular necrosis of the hip and a chronic non-healing foot ulcer admitted after rapid response in hyperbarics for acute pain crisis. # sickle cell crisis # Acute blood loss anemia with Baseline hgb per pt 7.4-8, S/p 2 units PRBC 10/08 * Hgb drop from 7 to 5.6 * Monitor H/H , transfuse as needed , no active bleeding # Chronic LE Ulcers 2/2 scd crisis #History of Gastric Ulcers #R/O Pneumonia # Atelectasis : * f/u Cxr in AM * Consider CT chest * ID on board , Hem on board * abx per ID ceftriaxone/azithromycin * Pain control * duoneb * Incentive spirometry * o2 as needed * Bronchodilators * decrease iv fluids and switch to 1/2 NS @ 125 cc/hr * Hydoxyuria held due to foot ulcer wound (contraindications) * Continue folic acid, angela and wound care * DVT prophylaxis * repeated cxr negative for pneumothorax * Visit type - Emergency Visit Emergency Visit: Yes ED Registration Date: 10/10/17 Care time: The patient presented to the Emergency Department on the above date and was hospitalized for further evaluation of their emergent condition. - New Patient This patient is new to me today: No - Critical Care Critical Care patient: No
[2017-10-12] MEDS ORDERED: FENTANYL PATCH WASTE TD PRN (13:47)
[2017-10-12] MEDS ORDERED: fentaNYL 25mcg/hr PATCH.TD72 TD SCH (14:00)
--- NOTE | 2017-10-12 14:36 | PN ---
Progress Note (short form) - Note Progress Note: pt seen and examined +joint pain all over in distress O/E: General; NAD cor: RSR, No murmurs, No gallops Lungs: Clear to P&A Abd: Soft, Normal bowel sounds Ext:No significant edema, ulcers in dressing in the LLE Last Vital Signs Temp Pulse Resp BP Pulse Ox 98.5 F 78 20 113/72 95 10/11/17 14:00 10/11/17 14:00 10/11/17 14:00 10/11/17 14:00 10/10/17 21:00 CBC, BMP 10/11/17 06:00 10/09/17 06:35 Current Medications Generic Name Dose Route Start Last Admin Trade Name Freq PRN Reason Stop Dose Admin Diphenhydramine HCl 25 mg 10/07/17 22:00 10/11/17 13:49 Benadryl - PO 25 mg TID DEBBIE Administration Enoxaparin Sodium 40 mg 10/08/17 13:30 10/11/17 09:40 Lovenox - SQ 40 mg DAILY DEBBIE Administration Folic Acid 1 mg 10/08/17 10:00 10/11/17 09:40 Folic Acid - PO 1 mg DAILY DEBBIE Administration Hydromorphone HCl 3 mg 10/08/17 10:47 10/11/17 13:48 Dilaudid Injection - IVPB 3 mg Q3H PRN Administration PAIN Azithromycin 250 mg/ Dextrose 250 mls @ 250 mls/hr 10/12/17 10:00 IVPB 10/16/17 09:59 DAILY DEBBIE CEFTRIAXONE 1 G/50 ML PREMIX 50 mls @ 100 mls/hr 10/11/17 14:30 Ceftriaxone 1 Gm-D5w Bag IVPB 10/13/17 10:29 DAILY DEBBIE Sodium Chloride 1,000 mls @ 125 mls/hr 10/11/17 15:45 10/11/17 16:04 1/2 Normal Saline IV 125 mls/hr ASDIR DEBBIE Administration Pantoprazole Sodium 40 mg 10/08/17 10:00 10/11/17 09:40 Protonix - PO 40 mg DAILY DEBBIE Administration Polyethylene Glycol 17 gm 10/11/17 13:45 10/11/17 13:49 Miralax (For Daily Use) - PO 17 gm DAILY [facility]BBIE Administration Zinc Sulfate 220 mg 10/08/17 10:00 10/11/17 09:40 Orazinc - PO 220 mg DAILY DEBBIE Administration 31 y/o patient with sickle cell disease, vaso occlusive crisis HgSS VOC ?PNA Hg of 5.9 today! done from central line , confirmed that the prior tubes discarded prior to sending to lab retic count slight increased bili slightly increased ldh increased No end organ damage ( nl LFTs, nl Cr) repeat labs ruled out allo-auto ab from today, less suspicion for hyper-hemolysis, but I do think she has continued VOC , she did improve yesterday and today noted to have a lot of joint pain, no further chest pain Due to the above, I would consider giving her first one unit of PRBC. consider long acting medication for pain consider pain management consult on abx, ?cef caused today's episode?, ID note reviewed, may need to change to Levaquin f/u hgEP ( pre-transfusion), will repeat post transfusion tomorrow continue to follow closely d/w d/w RN
--- NOTE | 2017-10-12 19:13 | CONSULT ---
Consult Consult Specialty:: chest pain Referred by:: hospitalist Reason for Consultation:: chest pain - History of Present Illness Chief Complaint: chest pain History of Present Illness: A 31 yof admitted for sickle cell crisis. Currently she reports the pain is controlled with dilaudid 3mg IV intermittently. She reports she is not getting her dilaudid in time. - Past Medical History ...: No - Alcohol/Substance Use Hx Alcohol Use: No - Smoking History Smoking history: Never smoked Aproximately how many cigarettes per day: 0 Home Medications - Allergies Allergies/Adverse Reactions: Allergies Allergy/AdvReac Type Severity Reaction Status Date / Time bacitracin Allergy Verified 10/07/17 15:50 morphine Allergy Verified 10/07/17 15:50 - Home Medications Home Medications: Ambulatory Orders Ascorbic Acid [Vitamin C -] 500 mg PO BID 10/07/17 Diphenhydramine HCl [Benadryl -] 25 mg PO Q6H 10/07/17 Folic Acid - 1 mg PO DAILY 10/07/17 Hydromorphone [Dilaudid -] 4 mg PO Q4H PRN 10/07/17 Pantoprazole Sodium [Protonix -] 40 mg PO DAILY 10/07/17 Zinc Sulfate 220 mg PO DAILY 10/07/17 Physical Exam Vital Signs: Vital Signs Temperature 99.1 F 10/12/17 18:26 Pulse Rate 77 10/12/17 18:26 Respiratory Rate 20 10/12/17 18:26 Blood Pressure 106/53 10/12/17 18:26 O2 Sat by Pulse Oximetry (%) 97 10/12/17 09:00 Musculoskeletal: Yes: Back Pain Labs: CBC, BMP 10/12/17 06:00 10/12/17 06:00 Assessment/Plan Sickle cell crisis 1.Continue IV dilaudid 3mg PRN pain- may need to start this around the clock if her crisis continues 2. Start morphine 30mg PO q12h. THe patient reports being on this dose before in the past 3. COnsider tylenol prn pain
--- NOTE | 2017-10-12 19:55 | PN ---
Teaching Attending Note Name of Resident: Fransisca Yo ATTENDING PHYSICIAN STATEMENT I saw and evaluated the patient. I reviewed the resident's note and discussed the case with the resident. I agree with the resident's findings and plan as documented. SUBJECTIVE: pain legs , hips and thighs. NO CP or SOB OBJECTIVE: mild distress. looks in pain. CV: RRR, 3/6 SM at LLSB Lung s: CTAB Ext: no edema . pt preferred not to examine L foot ulcer ASSESSMENT AND PLAN: 31 y/o unfortunate lady with h/o sickle cell anemia , chronic L foot ulcer and avascular necrosis of Hip who presented with pain after hyperbaric treatmen. She was found to have Acute sickle cell crisis 1- Acute Sickle cell crisis : worsened anemia today - transfuse one unit - repeat labs - she has pulm infiltrates, Acute chest syndrome is hard to r/o, less likely though . - cont IVF - cont IV dilaudid - pain mgt consult noted. ER morphine started. will dc fentanyl patch started earlier today to avoid side effects - cont folic acid 2- POssible PNA : cont azithro and ceftriaxone day 2 3- h/o Gastric ulcer: for EGD when stable 4-HLOC
[2017-10-12] MEDS: morphine SO4 SUSTAINED ACTING 30 MG TABLET.SA PO SCH (20:49)
--- NOTE | 2017-10-12 21:22 | PN ---
Physical Exam: SUBJECTIVE: Patient seen and examined. Pt c/o knee pain. Pt denies fever, chills, chest pain, sob. No events overnight. OBJECTIVE: Vital Signs Period Temp Pulse Resp BP Sys/Quijano Pulse Ox Last 24 Hr 98.5 F-99.1 F 74-78 20-20 97-106/48-70 97 GENERAL: The patient is awake, alert, and fully oriented, in mild acute distress , appears to be in pain. HEAD: Normal with no signs of trauma. EYES: Extraocular movements intact, sclera anicteric, conjunctiva clear. No ptosis. ENT: Moist mucous membranes. NECK: Trachea midline, full range of motion, supple. LUNGS: Breath sounds equal, clear to auscultation bilaterally, no wheezes, no crackles, no accessory muscle use. HEART: Regular rate and rhythm, 3/6 systolic murmur heard best at the Left lower sternal border. EXTREMITIES: Warm, well-perfused, no edema. Left foot ulcer not examined per pt preference. NEUROLOGICAL: Cranial nerves II through XII grossly intact. Normal speech, unsteady gait 2/2 weakness/pain. PSYCH: Normal mood, normal affect. SKIN: Warm, dry, normal turgor, no rashes or lesions noted Laboratory Results - last 24 hr 10/07/17 10/11/17 10/12/17 15:55 21:30 06:00 WBC 11.2 H RBC 2.07 L Hgb 5.9 L* D Hct 16.4 L MCV 79.2 L MCH 28.8 MCHC 36.4 H RDW 20.0 H Plt Count 277 MPV 7.6 Neutrophils % 53.9 Lymphocytes % 23.3 Monocytes % 17.6 H Eosinophils % 4.7 H Basophils % 0.5 Hypochromia 2+ Polychromasia 1+ Poikilocytosis 2+ Anisocytosis 2+ Microcytosis 2+ Sickle Cells 2+ Retic Count 8.13 H D Hemoglobin A Cancelled Hemoglobin A2 Cancelled Hemoglobin C Cancelled Hemoglobin S Cancelled Variant Hemoglobin Cancelled Hemoglobin Interpret Cancelled Maternal Rh Cancelled Hemoglobin Solubility Cancelled Sodium Potassium Chloride Carbon Dioxide Anion Gap BUN Creatinine Creat Clearance w eGFR Random Glucose Calcium Total Bilirubin AST ALT Alkaline Phosphatase LD Total Total Protein Albumin Blood Type O POSITIVE Antibody Screen Negative Direct Antiglob Test Negative Crossmatch See Detail 10/12/17 10/12/17 06:00 09:45 WBC RBC Hgb Hct MCV MCH MCHC RDW Plt Count MPV Neutrophils % Lymphocytes % Monocytes % Eosinophils % Basophils % Hypochromia Polychromasia Poikilocytosis Anisocytosis Microcytosis Sickle Cells Retic Count Hemoglobin A Hemoglobin A2 Hemoglobin C Hemoglobin S Variant Hemoglobin Hemoglobin Interpret Maternal Rh Hemoglobin Solubility Sodium 140 Potassium 4.2 Chloride 106 Carbon Dioxide 29 D Anion Gap 5 L BUN 6 L Creatinine 0.4 L Creat Clearance w eGFR > 60 Random Glucose 80 Calcium 8.2 L Total Bilirubin 6.7 H AST 34 ALT 19 D Alkaline Phosphatase 52 LD Total 445 H Total Protein 5.7 L Albumin 3.3 L Blood Type O POSITIVE Antibody Screen Negative Direct Antiglob Test Crossmatch See Detail Active Medications Generic Name Dose Route Start Last Admin Trade Name Freq PRN Reason Stop Dose Admin Diphenhydramine HCl 25 mg 10/07/17 22:00 10/12/17 14:55 Benadryl - PO 25 mg TID DEBBIE Administration Enoxaparin Sodium 40 mg 10/08/17 13:30 10/12/17 09:16 Lovenox - SQ 40 mg DAILY DEBBIE Administration Folic Acid 1 mg 10/08/17 10:00 10/12/17 09:15 Folic Acid - PO 1 mg DAILY DEBBIE Administration Hydromorphone HCl 3 mg 10/08/17 10:47 10/12/17 18:26 Dilaudid Injection - IVPB 3 mg Q3H PRN Administration PAIN Azithromycin 250 mg/ Dextrose 250 mls @ 250 mls/hr 10/12/17 10:00 10/12/17 10 :36 IVPB 10/16/17 09:59 250 mls/hr DAILY DEBBIE Administration CEFTRIAXONE 1 G/50 ML PREMIX 50 mls @ 100 mls/hr 10/11/17 14:30 10/12/17 09: 16 Ceftriaxone 1 Gm-D5w Bag IVPB 10/13/17 10:29 100 mls/hr DAILY DEBBIE Administration Sodium Chloride 1,000 mls @ 125 mls/hr 10/11/17 15:45 10/12/17 16:25 1/2 Normal Saline IV 125 mls/hr ASDIR DEBBIE Administration Morphine Sulfate 30 mg 10/12/17 19:15 Ms Contin - PO Q12H DEBBIE Pantoprazole Sodium 40 mg 10/08/17 10:00 10/12/17 09:14 Protonix - PO 40 mg DAILY DEBBIE Administration Polyethylene Glycol 17 gm 10/11/17 13:45 10/12/17 10:36 Miralax (For Daily Use) - PO 17 gm DAILY DEBBIE Administration Zinc Sulfate 220 mg 10/08/17 10:00 10/12/17 09:15 Orazinc - PO 220 mg DAILY DEBBIE Administration IMAGIN10/11/17 6am CXR -> progressive Left lung base changes 10/11/17 2:30pm CXR -> s/p Right IJ central venous catheter, no PTX. Small brandi pleural effusions unchanged. ASSESSMENT/PLAN: 31yo F with PMH of sickle cell anemia, gastric ulcers, chronic Left foot ulcer and avascular necrosis of hip, presents with should and hip pain accompanied by chest pressure s/p hyperbaric treatment. Pt found to have acute sickle cell crisis. # acute sickle cell vaso-occlusive crisis - Hgb dropped from 7.0 -> 5.9 today, 1U PRBCs transfused - retic count increased - T. bili increased - LDH increased - no end organ damage noted (LFTs and Cr wnl) - continue Dilaudid prn for pain - Pain Management Consult recs appreciated -> MS Contin 30 BID added for pain - continue folic acid # Possible pna vs acute chest syndrome - Day 2 of IV Zithromax - Day 1 of IV Ceftriaxone (if continued/persistent drop in Hct -> consider switching to Levaquin as there are rare cases of hemolysis in sickle cell pts on Ceftriaxone - Dr. Lai 10/12/17) - ACS less likely as pt denies chest pain today - encourage incentive spirometer - supplemental O2 prn # gastric ulcer - EGD scheduled for tomorrow # FEN - Fluids: 1/2 NS @ 125 ml/hr - Electrolytes: wnl, continue to monitor - Nutrition: regular diet # Prophylaxis - DVT ppx with Lovenox - GI ppx with Protonix Visit type - Emergency Visit Emergency Visit: Yes ED Registration Date: 10/10/17 Care time: The patient presented to the Emergency Department on the above date and was hospitalized for further evaluation of their emergent condition. - New Patient This patient is new to me today: Yes Date on this admission: 10/12/17 - Critical Care Critical Care patient: No
[2017-10-13] MEDS: HYDROmorphone HCL CARPU-JECT 2 MG/1 ML DISP.SYRIN IVPB PRN ×7 (01:41→23:22)
[2017-10-13] MEDS: SODIUM CHLORIDE 0.45% 1,000 ML IV SCH ×2 (03:00→14:01)
[2017-10-13] MEDS: diphenhydrAMINE HCL 25 MG CAPSULE (FP) PO SCH ×3 (05:42→22:04)
[2017-10-13] MEDS: morphine SO4 SUSTAINED ACTING 30 MG TABLET.SA PO SCH ×2 (06:38→18:32)
[2017-10-13 07:20] LABS: BASOPHIL 1.2 % (0-2.0); EOSINOPHIL 5.1 % (0-4.5); MCH 28.3 pg (25.7-33.7); MCHC 36.3 g/dl (32.0-36.0); MEAN CELL VOLUME 77.8 fl (80-96); MEAN PLT VOLUME 7.4 fl (7.5-11.1); NEUTROPHILS 47.6 % (42.8-82.8); WHITE BLOOD COUNT 10.2 K/mm3 (4.0-10.0)
[2017-10-13 07:43] LABS: ALBUMIN 3.3 g/dl (3.4-5.0); ANION GAP 6 (8-16); CALCIUM 8.2 mg/dL (8.5-10.1); CO2 28 mmol/L (21-32); GLUCOSE,RANDOM 85 mg/dL (74-106)
[2017-10-13 07:48] LABS: ALK PHOS 52 U/L (45-117); BILIRUBIN,TOTAL 6.6 mg/dL (0.2-1.0); CREATININE 0.3 mg/dL (0.55-1.02); SGOT/AST 33 U/L (15-37); SGPT/ALT 20 U/L (12-78); TOT PROT 5.7 g/dl (6.4-8.2)
--- NOTE | 2017-10-13 07:53 | PN ---
Addendum entered and electronically signed by Fransisca Yo, RESIDENT 14:18: After EGD pt c/o abdominal pain which she attributes to not being able to pass gas yet. Pt encouraged to walk and eat her lunch. Pt denies diarrhea, cough, sob. Original Note: Physical Exam: SUBJECTIVE: Patient seen and examined. Pt denies fever, chills, chest pain. Pt c/o pain to Left hip. No events overnight. OBJECTIVE: Vital Signs Period Temp Pulse Resp BP Sys/Quijano Pulse Ox Last 24 Hr 98.3 F-99.1 F 74-81 18-20 97-128/53-75 95-97 GENERAL: The patient is awake, alert, and fully oriented, in no acute distress. HEAD: Normal with no signs of trauma. LUNGS: Breath sounds equal, clear to auscultation bilaterally, no wheezes, no crackles, no accessory muscle use. HEART: Regular rate and rhythm, 3/6 systolic murmur heard best at the Left lower sternal border. ABDOMEN: Soft, nontender, nondistended. EXTREMITIES: Warm, well-perfused, trace edema to brandi LE. PSYCH: Normal mood, normal affect. SKIN: Warm, dry, normal turgor, no rashes or lesions noted Laboratory Results - last 24 hr 10/07/17 10/12/17 10/13/17 15:55 09:45 06:00 WBC 10.2 H RBC 2.46 L Hgb 6.9 L* D Hct 19.1 L D MCV 77.8 L MCH 28.3 MCHC 36.3 H RDW 21.0 H Plt Count 284 MPV 7.4 L Neutrophils % 47.6 Lymphocytes % 25.1 Monocytes % 21.0 H Eosinophils % 5.1 H Basophils % 1.2 Hypochromia 2+ Polychromasia 1+ Poikilocytosis 2+ Sickle Cells 2+ Target Cells 1+ Sodium Potassium Chloride Carbon Dioxide Anion Gap BUN Creatinine Creat Clearance w eGFR Random Glucose Calcium Total Bilirubin AST ALT Alkaline Phosphatase LD Total Total Protein Albumin Urine HCG, Qual Blood Type O POSITIVE O POSITIVE Antibody Screen Negative Negative Direct Antiglob Test Negative Crossmatch See Detail See Detail 10/13/17 10/13/17 10/13/17 06:00 10:08 10:50 WBC RBC Hgb Hct MCV MCH MCHC RDW Plt Count MPV Neutrophils % Lymphocytes % Monocytes % Eosinophils % Basophils % Hypochromia Polychromasia Poikilocytosis Sickle Cells Target Cells Sodium 142 Potassium 3.9 Chloride 108 H Carbon Dioxide 28 Anion Gap 6 L BUN 4 L D Creatinine 0.3 L D Creat Clearance w eGFR > 60 Random Glucose 85 Calcium 8.2 L Total Bilirubin 6.6 H AST 33 ALT 20 Alkaline Phosphatase 52 LD Total 475 H 493 H Total Protein 5.7 L Albumin 3.3 L Urine HCG, Qual Negative Blood Type Antibody Screen Direct Antiglob Test Crossmatch Active Medications Generic Name Dose Route Start Last Admin Trade Name Freq PRN Reason Stop Dose Admin Diphenhydramine HCl 25 mg 10/07/17 22:00 10/13/17 05:42 Benadryl - PO Not Given TID DEBBIE Enoxaparin Sodium 40 mg 10/08/17 13:30 10/12/17 09:16 Lovenox - SQ 40 mg DAILY DEBBIE Administration Folic Acid 1 mg 10/08/17 10:00 10/12/17 09:15 Folic Acid - PO 1 mg DAILY DEBBIE Administration Hydromorphone HCl 3 mg 10/08/17 10:47 10/13/17 04:44 Dilaudid Injection - IVPB 3 mg Q3H PRN Administration PAIN Azithromycin 250 mg/ Dextrose 250 mls @ 250 mls/hr 10/12/17 10:00 10/12/17 10 :36 IVPB 10/16/17 09:59 250 mls/hr DAILY DEBBIE Administration CEFTRIAXONE 1 G/50 ML PREMIX 50 mls @ 100 mls/hr 10/11/17 14:30 10/12/17 09: 16 Ceftriaxone 1 Gm-D5w Bag IVPB 10/13/17 10:29 100 mls/hr DAILY DEBBIE Administration Sodium Chloride 1,000 mls @ 125 mls/hr 10/11/17 15:45 10/13/17 03:00 1/2 Normal Saline IV 125 mls/hr ASDIR DEBBIE Administration Morphine Sulfate 30 mg 10/12/17 19:15 10/13/17 06:38 Ms Contin - PO Not Given Q12H DEBBIE Pantoprazole Sodium 40 mg 10/08/17 10:00 10/12/17 09:14 Protonix - PO 40 mg DAILY DEBBIE Administration Polyethylene Glycol 17 gm 10/11/17 13:45 10/12/17 10:36 Miralax (For Daily Use) - PO 17 gm DAILY DEBBIE Administration Zinc Sulfate 220 mg 10/08/17 10:00 10/12/17 09:15 Orazinc - PO 220 mg DAILY DEBBIE Administration IMAGIN10/13/17 CXR -> increased atelectasis with some pleural reactions at the brandi bases. Right Internal Jugular catheter remains intact. 10/13/17 EGD -> denuded-appearing mucosa in the 2nd portion (duodenitis), otherwise negative exam. Biopsies taken from 2nd portion, antrum, and body. Follow results in 1 week in office. ASSESSMENT/PLAN: 31yo F with PMH of sickle cell anemia, gastric ulcers, chronic Left foot ulcer and avascular necrosis of hip, presents with should and hip pain accompanied by chest pressure s/p hyperbaric treatment. Pt found to have acute sickle cell crisis. # acute sickle cell vaso-occlusive crisis - Hgb up 1 point to 6.9 s/p transfusion of 1 unit of PRBCs yesterday from 7.0 -> 5.9 today - T. bili increased - continue Dilaudid prn and MS Contin BID for pain - continue folic acid # Possible pna vs acute chest syndrome - s/p 2 days of IV Zithromax and 1 day of IV Ceftriaxone - Levaquin 500mg po daily initiated - Pt requires 5 days total of antibiotic - ACS less likely as pt denies chest pain - encourage incentive spirometer - supplemental O2 prn # gastric ulcer - resolved, no active ulcers per EGD - pt cleared for D/C from GI perspective - pt does not require GI ppx at home # FEN - Fluids: 1/2 NS @ 75 ml/hr - Electrolytes: wnl, continue to monitor - Nutrition: regular diet # Prophylaxis - DVT ppx with Lovenox, early ambulation - GI ppx with Protonix Visit type - Emergency Visit Emergency Visit: Yes ED Registration Date: 10/10/17 Care time: The patient presented to the Emergency Department on the above date and was hospitalized for further evaluation of their emergent condition. - New Patient This patient is new to me today: No - Critical Care Critical Care patient: No
[2017-10-13] MEDS: CEFTRIAXONE 1 G/50 ML PREMIX 50 ML IVPB SCH (09:10)
[2017-10-13] MEDS: ZINC SULFATE 220 MG CAPSULE (FP) PO SCH (09:11)
[2017-10-13] MEDS: POLYETHYLENE GLYCOL 3350 119 GM BTL PO SCH (09:11)
[2017-10-13] MEDS: ENOXAPARIN NA (PORCINE) 40 MG/0.4 ML DISP.SYRIN SQ SCH (09:11)
[2017-10-13] MEDS: FOLIC ACID 1 MG TABLET (FP) PO SCH (09:11)
[2017-10-13] MEDS: PANTOPRAZOLE 40 MG TABLET (FP) PO SCH (09:11)
[2017-10-13] MEDS: AZITHROMYCIN IVPB 250 MG in DEXTROSE 5%-WATER - 250 ML IVPB SCH (10:21)
[2017-10-13 10:23] LABS: LDH 475 U/L (84-246)
--- NOTE | 2017-10-13 11:06 | PN ---
Progress Note (short form) - Note Progress Note: PULMONARY Breathing better today. No cough. No fevers or chills. Last Vital Signs Temp Pulse Resp BP Pulse Ox 98.6 F 73 20 115/62 96 10/13/17 10:00 10/13/17 10:00 10/13/17 10:00 10/13/17 10:00 10/13/17 09:00 Intake & Output 10/10/17 10/11/17 10/12/17 10/13/17 23:59 23:59 23:59 23:59 Intake Total 4250 1325 3570 1375 Balance 4250 1325 3570 1375 Gen: NAD at rest Heart: RRR Lung: decreased breath sounds at the bases Abd: soft, nontender Ext: no edema CBC, BMP 10/13/17 06:00 10/13/17 06:00 Active Medications Diphenhydramine HCl (Benadryl -) 25 mg PO TID [facility] Last Admin: 10/13/17 05:42 Dose: Not Given Enoxaparin Sodium (Lovenox -) 40 mg SQ DAILY [facility] Last Admin: 10/13/17 09:11 Dose: Not Given Folic Acid (Folic Acid -) 1 mg PO DAILY [facility] Last Admin: 10/13/17 09:11 Dose: Not Given Hydromorphone HCl (Dilaudid Injection -) 3 mg IVPB Q3H PRN PRN Reason: PAIN Last Admin: 10/13/17 09:52 Dose: 3 mg Sodium Chloride (1/2 Normal Saline) 1,000 mls @ 125 mls/hr IV ASDIR [facility] Last Admin: 10/13/17 03:00 Dose: 125 mls/hr Levofloxacin (Levaquin -) 500 mg PO DAILY@0600 [facility] Stop: 10/15/17 06:01 Morphine Sulfate (Ms Contin -) 30 mg PO Q12H [facility] Last Admin: 10/13/17 06:38 Dose: Not Given Pantoprazole Sodium (Protonix -) 40 mg PO DAILY [facility] Last Admin: 10/13/17 09:11 Dose: Not Given Polyethylene Glycol (Miralax (For Daily Use) -) 17 gm PO DAILY [facility] Last Admin: 10/13/17 09:11 Dose: Not Given Zinc Sulfate (Orazinc -) 220 mg PO DAILY [facility] Last Admin: 10/13/17 09:11 Dose: Not Given A/P Sickle Cell Crisis Atelectasis r/o Pneumonia Anemia LE Ulcers - incentive spirometry - pain control - ambulate - supplemental O2 - hypotonic saline, can decrease rate to 75mL/hr - on empiric antibiotics - f/u cultures - monitor H/H - transfuse as needed - folic acid - DVT prophylaxis
--- NOTE | 2017-10-13 11:47 | PROC ---
Endoscopy Procedure Endoscopy procedure completed. Please see scanned procedure report. denuded-appearing mucosa in the 2nd portion (duodenitis), otherwise negative exam. Biopsies taken form 2nd portion, antrum, body. Follow results in 1 weeks in office
[2017-10-13 11:59] LABS: HYPOCHROMIA 2+; PLATELET COUNT 284 K/MM3 (134-434); POIKILOCYTOSIS 2+; POLYCHROMASIA 1+; TARGET CELLS 1+
--- NOTE | 2017-10-13 13:32 | MSN ---
Progress Note (short form) - Note Progress Note: SUBJECTIVE: 31 year old female with PMH sickle cell disease, gastric ulcers, chronic L lateral ankle ulcer and avascular necrosis of hip, presents with acute sickle cell vaso-occlusive crisis and possible acute chest syndrome s/p hyperbaric oxygen treatment. Today, patient was seen and examined. Pt c/o pain from "back and below", states pain is "better than before". Pt states pain in b/l knees is worse with ambulation. She denies chest pain at the moment and states chest pain is intermittent. No events overnight. OBJECTIVE: Last Vital Signs Temp Pulse Resp BP Pulse Ox 98.6 F 59 L 20 104/52 99 10/13/17 13:07 10/13/17 13:07 10/13/17 13:07 10/13/17 13:07 10/13/17 13:07 GENERAL: Awake, alert, and fully oriented, in no acute distress. HEAD: Normal with no signs of trauma. EYES: Pupils equal, round and reactive to light, extraocular movements intact, sclera anicteric, conjunctiva clear. No lid lag. ENT: Ears normal, nares patent, oropharynx clear without exudates. Moist mucous membranes. NECK: full range of motion, trachea midline, supple. No lymphadenopathy. LUNGS: Breath sounds equal, diminished breath sounds at b/l lower lobes. No wheezes, and no crackles. No accessory muscle use. HEART: Regular rate and rhythm, normal S1 and S2 with mid-late systolic 3/6 murmur heard best at L lateral sternal border. ABDOMEN: Soft, nontender, not distended, normoactive bowel sounds, no guarding, no rebound, no masses. No hepatomegaly or splenomegaly. EXTREMITIES: 2+ pulses throughout, 1+ pitting edema at B/L ankles, warm, well perfused. Capillary refill <2 s; mild yellowing of nails on B/L UE noted. L lateral ankle wound was examined; clean bed with granulation tissue present, no discharge was noted. No calf tenderness. NEUROLOGICAL: Normal speech. Mildly antalgic gait. PSYCHIATRIC: Cooperative with good eye contact. Appropriate mood and affect. SKIN: Warm, dry, normal turgor. Laboratory Results - last 24 hr 10/07/17 10/12/17 10/13/17 15:55 09:45 06:00 WBC 10.2 H RBC 2.46 L Hgb 6.9 L* D Hct 19.1 L D MCV 77.8 L MCH 28.3 MCHC 36.3 H RDW 21.0 H Plt Count 284 MPV 7.4 L Neutrophils % 47.6 Lymphocytes % 25.1 Monocytes % 21.0 H Eosinophils % 5.1 H Basophils % 1.2 Hypochromia 2+ Polychromasia 1+ Poikilocytosis 2+ Sickle Cells 2+ Target Cells 1+ Sodium Potassium Chloride Carbon Dioxide Anion Gap BUN Creatinine Creat Clearance w eGFR Random Glucose Calcium Total Bilirubin AST ALT Alkaline Phosphatase LD Total Total Protein Albumin Urine HCG, Qual Blood Type O POSITIVE O POSITIVE Antibody Screen Negative Negative Direct Antiglob Test Negative Crossmatch See Detail See Detail 10/13/17 10/13/17 10/13/17 06:00 10:08 10:50 WBC RBC Hgb Hct MCV MCH MCHC RDW Plt Count MPV Neutrophils % Lymphocytes % Monocytes % Eosinophils % Basophils % Hypochromia Polychromasia Poikilocytosis Sickle Cells Target Cells Sodium 142 Potassium 3.9 Chloride 108 H Carbon Dioxide 28 Anion Gap 6 L BUN 4 L D Creatinine 0.3 L D Creat Clearance w eGFR > 60 Random Glucose 85 Calcium 8.2 L Total Bilirubin 6.6 H AST 33 ALT 20 Alkaline Phosphatase 52 LD Total 475 H 493 H Total Protein 5.7 L Albumin 3.3 L Urine HCG, Qual Negative Blood Type Antibody Screen Direct Antiglob Test Crossmatch CMP Sodium 142 mmol/L (136-145) 10/13/17 06:00 Potassium 3.9 mmol/L (3.5-5.1) 10/13/17 06:00 Chloride 108 mmol/L (98-107) H 10/13/17 06:00 Carbon Dioxide 28 mmol/L (21-32) 10/13/17 06:00 Anion Gap 6 (8-16) L 10/13/17 06:00 BUN 4 mg/dL (7-18) L D 10/13/17 06:00 Creatinine 0.3 mg/dL (0.55-1.02) L D 10/13/17 06:00 Creat Clearance w eGFR > 60 (>60) 10/13/17 06:00 Random Glucose 85 mg/dL (74-106) 10/13/17 06:00 Calcium 8.2 mg/dL (8.5-10.1) L 10/13/17 06:00 Total Bilirubin 6.6 mg/dL (0.2-1.0) H 10/13/17 06:00 AST 33 U/L (15-37) 10/13/17 06:00 ALT 20 U/L (12-78) 10/13/17 06:00 Alkaline Phosphatase 52 U/L (45-117) 10/13/17 06:00 LD Total 493 U/L (84-246) H 10/13/17 10:50 Creatine Kinase 57 IU/L (26-192) 10/10/17 13:55 Troponin I < 0.02 ng/ml (0.00-0.05) 10/10/17 13:55 Total Protein 5.7 g/dl (6.4-8.2) L 10/13/17 06:00 Albumin 3.3 g/dl (3.4-5.0) L 10/13/17 06:00 Total Amylase 36 U/L (25-115) 10/11/17 06:00 Lipase 80 U/L (73-393) 10/11/17 06:00 INR, PTT INR 1.34 (0.82-1.09) H 10/08/17 06:10 CBC, BMP 10/13/17 06:00 10/13/17 06:00 Home Medications Medication Instructions Recorded Ascorbic Acid [Vitamin C -] 500 mg PO BID 10/07/17 Diphenhydramine HCl [Benadryl -] 25 mg PO Q6H 10/07/17 Folic Acid - 1 mg PO DAILY 10/07/17 Hydromorphone [Dilaudid -] 4 mg PO Q4H PRN 10/07/17 Pantoprazole Sodium [Protonix -] 40 mg PO DAILY 10/07/17 Zinc Sulfate 220 mg PO DAILY 10/07/17 Current Medications Diphenhydramine HCl (Benadryl -) 25 mg PO TID [facility] Last Admin: 10/13/17 14:01 Dose: 25 mg Enoxaparin Sodium (Lovenox -) 40 mg SQ DAILY [facility] Last Admin: 10/13/17 09:11 Dose: Not Given Folic Acid (Folic Acid -) 1 mg PO DAILY [facility] Last Admin: 10/13/17 09:11 Dose: Not Given Hydromorphone HCl (Dilaudid Injection -) 3 mg IVPB Q3H PRN PRN Reason: PAIN Last Admin: 10/13/17 14:02 Dose: 3 mg Sodium Chloride (1/2 Normal Saline) 1,000 mls @ 75 mls/hr IV ASDIR [facility] Last Admin: 10/13/17 14:01 Dose: 75 mls/hr Levofloxacin (Levaquin -) 500 mg PO DAILY@0600 [facility] Stop: 10/15/17 06:01 Morphine Sulfate (Ms Contin -) 30 mg PO Q12H [facility] Last Admin: 10/13/17 06:38 Dose: Not Given Pantoprazole Sodium (Protonix -) 40 mg PO DAILY [facility] Last Admin: 10/13/17 09:11 Dose: Not Given Polyethylene Glycol (Miralax (For Daily Use) -) 17 gm PO DAILY [facility] Last Admin: 10/13/17 09:11 Dose: Not Given Zinc Sulfate (Orazinc -) 220 mg PO DAILY [facility] Last Admin: 10/13/17 09:11 Dose: Not Given IMAGIN10/13/17 7am CXR --> since CXR performed 10/11, increased atelectasis with some pleural reaction at bases. R jugular line remains. 10/11/17 6am CXR --> progressive L lung base changes 10/11/17 2:30pm CXR --> s/p R IJ central venous catheter, no PTX. Small b/l pleural effusions unchanged. ASSESSMENT/PLAN: 31yo F with PMH of sickle cell disease, gastric ulcers, chronic nonhealing L lateral ankle ulcer presenting with sickle vasoocclusive crisis and possible acute chest syndrome s/p hyperbaric oxygen treatment #acute sickle cell vaso-occlusive crisis - 1 unit PRBC transfused 10/12/17; ordered 4 PM CBC to monitor Hb/Hct to assess need for further transfusion to bring values back to pts baseline Hct of 8. - ordered retic count, LDH, t. bili with routine CBC for 10/14 6am blood draw - BUN at 4, Cr at 0.3; continue to monitor for end organ damage. LFTs wnl. - continue Dilaudid and MS Contin for pain - continue folic acid & zinc #possible pna vs acute chest syndrome - Zithromax and Ceftriaxone D/C per Dr. Lai rec 10/12/17 as there are rare cases of hemolysis in sickle cell pts on Ceftriaxone - switched to Levaquin 500mg PO daily @6am; day 3 of abx now. stop all abx in 2 days (total of 5 days). - ACS less likely based on clinical correlation - encourage incentive spirometer - supplemental O2 prn #gastric ulcer - f/u EGD results #FEN - fluids: 1/2 NS @125 ml/hr - electrolytes: wnl, continue to monitor - nutrition: regular diet #prophylaxis - DVT ppx with Lovenox - GI ppx with Protonix
--- NOTE | 2017-10-13 15:49 | PN ---
Teaching Attending Note Name of Resident: Fransisca Yo ATTENDING PHYSICIAN STATEMENT I saw and evaluated the patient. I reviewed the resident's note and discussed the case with the resident. I agree with the resident's findings and plan as documented. SUBJECTIVE: no fever or chills. Has less pain today. no SOB or CP OBJECTIVE: NAD CV: RRR, 3/6 SM at LLSB Lungs: CTAB , decreased breath sounds at bases Ext: trace edema . L leg ulcer on lateral malleolus with cleanbed and no discharge . no erythema or edema ASSESSMENT AND PLAN: 31 y/o unfortunate lady with h/o sickle cell disease , chronic L foot ulcer and avascular necrosis of Hip who presented with pain after hyperbaric treatment. She was found to have Acute sickle cell crisis 1- Acute Sickle cell crisis : - Hb improved after transfusion . - repeat CBC this evening. If lower will transfuse further - Low suspicion for acute chest syndrome with no hypoxia , or CP . cont to treat for PNA - cont IVF - off fentanyl patch due to adding MS contin. - COnt dilaudid and MS contin. better pain control today 2- PNA : d/w ID , ceftriaxone not preferred in sickle cell disease - change from azithro and ceftriaxone to levaquin x 2 more days ( total of 5). Literature reviewed, case reports about increased hemplysis in patient with SCD were found 3- Duodenitis : on EGD . Bx taken . follwo results 4-HLOC HLOC
--- NOTE | 2017-10-13 16:03 | PN ---
Progress Note, Physician History of Present Illness: Reports less chest discomfort No c/o dyspnea/ cough No fever/ chills Afebrile WBC 10.2 Hb 6.9 Cultures negative - Current Medication List Current Medications: Active Medications Diphenhydramine HCl (Benadryl -) 25 mg PO TID [facility] Last Admin: 10/13/17 14:01 Dose: 25 mg Enoxaparin Sodium (Lovenox -) 40 mg SQ DAILY [facility] Last Admin: 10/13/17 09:11 Dose: Not Given Folic Acid (Folic Acid -) 1 mg PO DAILY [facility] Last Admin: 10/13/17 09:11 Dose: Not Given Hydromorphone HCl (Dilaudid Injection -) 3 mg IVPB Q3H PRN PRN Reason: PAIN Last Admin: 10/13/17 14:02 Dose: 3 mg Sodium Chloride (1/2 Normal Saline) 1,000 mls @ 75 mls/hr IV ASDIR [facility] Last Admin: 10/13/17 14:01 Dose: 75 mls/hr Levofloxacin (Levaquin -) 500 mg PO DAILY@0600 [facility] Stop: 10/15/17 06:01 Morphine Sulfate (Ms Contin -) 30 mg PO Q12H [facility] Last Admin: 10/13/17 06:38 Dose: Not Given Pantoprazole Sodium (Protonix -) 40 mg PO DAILY [facility] Last Admin: 10/13/17 09:11 Dose: Not Given Polyethylene Glycol (Miralax (For Daily Use) -) 17 gm PO DAILY [facility] Last Admin: 10/13/17 09:11 Dose: Not Given Zinc Sulfate (Orazinc -) 220 mg PO DAILY [facility] Last Admin: 10/13/17 09:11 Dose: Not Given - Objective Vital Signs: Vital Signs Temperature 98.6 F 10/13/17 14:00 Pulse Rate 72 10/13/17 14:00 Respiratory Rate 20 10/13/17 14:00 Blood Pressure 108/50 10/13/17 14:00 O2 Sat by Pulse Oximetry (%) 99 10/13/17 13:07 Constitutional: Yes: No Distress Eyes: Yes: Conjunctiva Clear Cardiovascular: Yes: Regular Rate and Rhythm, S1, S2 Respiratory: Yes: CTA Bilaterally Gastrointestinal: Yes: Normal Bowel Sounds, Soft. No: Tenderness Edema: No Labs: CBC, BMP 10/13/17 06:00 10/13/17 06:00 INR, PTT INR 1.34 (0.82-1.09) H 10/08/17 06:10 Assessment/Plan Acute chest syndrome, possible pneumonia Acute vaso- occlusive crisis Continue empiric levaquin
--- NOTE | 2017-10-13 16:07 | PN ---
Physical Exam: Pulmonary Physical Exam: SUBJECTIVE: Patient seen and examined at bedside. Pain better controlled, chest pain is improving. denies any fever, chills, N/V, SOB. OBJECTIVE: Vital Signs Period Temp Pulse Resp BP Sys/Quijano Pulse Ox Last 24 Hr 97.5 F-99.1 F 59-81 16-20 99-128/42-75 95-100 GENERAL: The patient is awake, alert, and fully oriented, in no acute distress. GENERAL: The patient is awake, alert, and fully oriented, in moderate distress. HEAD: Normal with no signs of trauma. EYES: , sclera icteric, conjunctiva clear. ENT: moist mucous membranes. NECK: Trachea midline, full range of motion, supple. PICC line in palce LUNGS: diminished breath sound at bases, no wheezes, no crackles, no accessory muscle use. HEART: Regular rate and rhythm, S1, S2 ,soft systolic murmur 1-2/6 LLSB , No rub or gallop. ABDOMEN: Soft, nontender, nondistended, normoactive bowel sounds, EXTREMITIES: warm, well-perfused, +trace edema. left feet later wound in dressing. NEUROLOGICAL: No focal deficits, Normal speech, gait not observed. PSYCH: Normal mood, normal affect. SKIN: Warm, dry, no rashes or lesions noted Laboratory Results - last 24 hr 10/13/17 10/13/17 10/13/17 06:00 06:00 10:08 WBC 10.2 H RBC 2.46 L Hgb 6.9 L* D Hct 19.1 L D MCV 77.8 L MCH 28.3 MCHC 36.3 H RDW 21.0 H Plt Count 284 MPV 7.4 L Neutrophils % 47.6 Lymphocytes % 25.1 Monocytes % 21.0 H Eosinophils % 5.1 H Basophils % 1.2 Hypochromia 2+ Polychromasia 1+ Poikilocytosis 2+ Sickle Cells 2+ Target Cells 1+ Sodium 142 Potassium 3.9 Chloride 108 H Carbon Dioxide 28 Anion Gap 6 L BUN 4 L D Creatinine 0.3 L D Creat Clearance w eGFR > 60 Random Glucose 85 Calcium 8.2 L Total Bilirubin 6.6 H AST 33 ALT 20 Alkaline Phosphatase 52 LD Total 475 H Total Protein 5.7 L Albumin 3.3 L Urine HCG, Qual Negative 10/13/17 10:50 WBC RBC Hgb Hct MCV MCH MCHC RDW Plt Count MPV Neutrophils % Lymphocytes % Monocytes % Eosinophils % Basophils % Hypochromia Polychromasia Poikilocytosis Sickle Cells Target Cells Sodium Potassium Chloride Carbon Dioxide Anion Gap BUN Creatinine Creat Clearance w eGFR Random Glucose Calcium Total Bilirubin AST ALT Alkaline Phosphatase LD Total 493 H Total Protein Albumin Urine HCG, Qual Active Medications Generic Name Dose Route Start Last Admin Trade Name Freq PRN Reason Stop Dose Admin Diphenhydramine HCl 25 mg 10/07/17 22:00 10/13/17 14:01 Benadryl - PO 25 mg TID DEBBIE Administration Enoxaparin Sodium 40 mg 10/08/17 13:30 10/13/17 09:11 Lovenox - SQ Not Given DAILY [facility] Folic Acid 1 mg 10/08/17 10:00 10/13/17 09:11 Folic Acid - PO Not Given DAILY [facility] Hydromorphone HCl 3 mg 10/08/17 10:47 10/13/17 14:02 Dilaudid Injection - IVPB 3 mg Q3H PRN Administration PAIN Sodium Chloride 1,000 mls @ 75 mls/hr 10/13/17 11:06 10/13/17 14:01 1/2 Normal Saline IV 75 mls/hr ASDIR DEBBIE Administration Levofloxacin 500 mg 10/14/17 06:00 Levaquin - PO 10/15/17 06:01 DAILY@0600 [facility] Morphine Sulfate 30 mg 10/12/17 19:15 10/13/17 06:38 Ms Contin - PO Not Given Q12H [facility] Pantoprazole Sodium 40 mg 10/08/17 10:00 10/13/17 09:11 Protonix - PO Not Given DAILY [facility] Polyethylene Glycol 17 gm 10/11/17 13:45 10/13/17 09:11 Miralax (For Daily Use) - PO Not Given DAILY [facility] Zinc Sulfate 220 mg 10/08/17 10:00 10/13/17 09:11 Orazinc - PO Not Given DAILY [facility] Microbiology 10/12/17 02:05 Urine For Antigen Detection Legionella Antigen - Final 10/12/17 02:05 Urine For Antigen Detection Streptococcus pneumoniae Antigen (M - Final 10/07/17 21:00 Urine - Urine Clean Catch Urine Culture - Final Contaminated: Please Repeat Chest Xray 10/11/17 : Progressive left base changes, progressive infiltrate and atelectasis with fluids on left base since previous image on Chest Xray 10/10/2017 : small bilateral pleural effusion with underlying opacities most likely atelectasis, underlying pneumonia can not be rulled out. ASSESSMENT/PLAN: 31 year old female with a PMHx of sickle cell anemia (last sickle cell crisis ) with avascular necrosis of the hip and a chronic non-healing foot ulcer admitted after rapid response in hyperbarics for acute pain crisis. # sickle cell crisis # Acute blood loss anemia with Baseline hgb per pt 7.4-8, S/p 2 units PRBC 10/08 * Hgb today 6.9 * Monitor H/H , transfuse as needed , no active bleeding # Chronic LE Ulcers 2/2 scd crisis #History of Gastric Ulcers, # duodenitis , S/p EGD #R/O Pneumonia # Atelectasis : * f/u Cxr * Consider CT chest * ID on board , Hem on board * abx per ID levaquin(switch from Azithro/cefriaxone unpreferable in scd) * Pain control * duoneb * Incentive spirometry * o2 as needed * Bronchodilators * decrease iv fluids and switch to 1/2 NS @ 75 cc/hr * Hydoxyuria held due to foot ulcer wound (contraindications) * Continue folic acid, angela and wound care * DVT prophylaxis * repeated cxr negative for pneumothorax * Hemolytic parameter per hem/onc Visit type - Emergency Visit Emergency Visit: Yes ED Registration Date: 10/10/17 Care time: The patient presented to the Emergency Department on the above date and was hospitalized for further evaluation of their emergent condition. - New Patient This patient is new to me today: No - Critical Care Critical Care patient: No - Discharge Referral Referred to [facility] Med P.C.: No
[2017-10-13 16:37] LABS: MCH 28.1 pg (25.7-33.7); MCHC 35.9 g/dl (32.0-36.0); MEAN CELL VOLUME 78.3 fl (80-96); MEAN PLT VOLUME 7.8 fl (7.5-11.1); PLATELET COUNT 305 K/MM3 (134-434); RDW 20.7 % (11.6-15.6)
[2017-10-13 18:00] LABS: TOTAL CELLS COUNTED 100; WHITE BLOOD COUNT 9.9 K/mm3 (4.0-10.0)
[2017-10-13 18:01] LABS: NUCLEATED RED BLOOD CELL 4 % (0-0); REACTIVE LYMPHOCYTES 2 % (0-80)
[2017-10-13 18:02] LABS: HYPOCHROMIA 2+; POLYCHROMASIA 1+
[2017-10-13 18:03] LABS: ANISOCYTOSIS 2+; POIKILOCYTOSIS 2+
[2017-10-13 18:04] LABS: MACROCYTOSIS 1+; MICROCYTOSIS 1+
[2017-10-13 18:05] LABS: TARGET CELLS 1+
[2017-10-13 18:08] LABS: HOWELL-JOLLY BODIES SEEN; PLATELET ESTIMATE ADEQUATE
--- NOTE | 2017-10-13 18:11 | PN ---
Progress Note (short form) - Note Progress Note: pt seen and examined denies complains pain well controlled no further chest pain O/E: General; NAD cor: RSR, No murmurs, No gallops Lungs: Clear to P&A Abd: Soft, Normal bowel sounds Ext:No significant edema, ulcers in dressing in the LLE Last Vital Signs Temp Pulse Resp BP Pulse Ox 98.8 F 73 20 100/62 99 10/13/17 16:47 10/13/17 16:47 10/13/17 16:47 10/13/17 16:47 10/13/17 13:07 CBC, BMP 10/13/17 16:00 10/13/17 06:00 Current Medications Generic Name Dose Route Start Last Admin Trade Name Freq PRN Reason Stop Dose Admin Diphenhydramine HCl 25 mg 10/07/17 22:00 10/13/17 14:01 Benadryl - PO 25 mg TID DEBBIE Administration Enoxaparin Sodium 40 mg 10/08/17 13:30 10/13/17 09:11 Lovenox - SQ Not Given DAILY DEBBIE Folic Acid 1 mg 10/08/17 10:00 10/13/17 09:11 Folic Acid - PO Not Given DAILY [facility] Hydromorphone HCl 3 mg 10/08/17 10:47 10/13/17 17:14 Dilaudid Injection - IVPB 3 mg Q3H PRN Administration PAIN Sodium Chloride 1,000 mls @ 75 mls/hr 10/13/17 11:06 10/13/17 14:01 1/2 Normal Saline IV 75 mls/hr ASDIR DEBBIE Administration Levofloxacin 500 mg 10/14/17 06:00 Levaquin - PO 10/15/17 06:01 DAILY@0600 [facility] Morphine Sulfate 30 mg 10/12/17 19:15 10/13/17 06:38 Ms Contin - PO Not Given Q12H DEBBIE Pantoprazole Sodium 40 mg 10/08/17 10:00 10/13/17 09:11 Protonix - PO Not Given DAILY [facility] Polyethylene Glycol 17 gm 10/11/17 13:45 10/13/17 09:11 Miralax (For Daily Use) - PO Not Given DAILY [facility] Zinc Sulfate 220 mg 10/08/17 10:00 10/13/17 09:11 Orazinc - PO Not Given DAILY DEBBIE 31 y/o patient with sickle cell disease, vaso occlusive crisis HgSS VOC ?PNA today,pt appears stable pain well controlled appreciate pain management no PRBC today hemolytic parameters for tomorrow c/w levaquin s/p EGD will follow
[2017-10-14] MEDS: HYDROmorphone HCL CARPU-JECT 2 MG/1 ML DISP.SYRIN IVPB PRN ×4 (03:37→22:10)
[2017-10-14] MEDS: diphenhydrAMINE HCL 25 MG CAPSULE (FP) PO SCH ×3 (05:25→22:09)
[2017-10-14] MEDS: LEVOFLOXACIN 500 MG TABLET (FP) PO SCH (05:25)
[2017-10-14] MEDS: morphine SO4 SUSTAINED ACTING 30 MG TABLET.SA PO SCH ×2 (06:29→19:48)
[2017-10-14 07:51] LABS: BASOPHIL 0.7 % (0-2.0); MCH 28.2 pg (25.7-33.7); MCHC 35.7 g/dl (32.0-36.0); MEAN PLT VOLUME 7.8 fl (7.5-11.1); NEUTROPHILS 50.9 % (42.8-82.8); PLATELET COUNT 287 K/MM3 (134-434); RDW 21.2 % (11.6-15.6)
[2017-10-14 08:42] LABS: ALBUMIN 3.4 g/dl (3.4-5.0); ALK PHOS 51 U/L (45-117); ANION GAP 11 (8-16); BILIRUBIN,DIRECT 0.3 mg/dL (0.0-0.2); BILIRUBIN,TOTAL 5.5 mg/dL (0.2-1.0); CALCIUM 8.5 mg/dL (8.5-10.1); CO2 24 mmol/L (21-32); CREATININE 0.3 mg/dL (0.55-1.02); GLUCOSE,RANDOM 74 mg/dL (74-106); LDH 532 U/L (84-246); SGOT/AST 31 U/L (15-37); SGPT/ALT 20 U/L (12-78); TOT PROT 5.9 g/dl (6.4-8.2)
[2017-10-14] MEDS: ZINC SULFATE 220 MG CAPSULE (FP) PO SCH (09:06)
[2017-10-14] MEDS: FOLIC ACID 1 MG TABLET (FP) PO SCH (09:06)
[2017-10-14] MEDS: PANTOPRAZOLE 40 MG TABLET (FP) PO SCH (09:06)
[2017-10-14] MEDS: POLYETHYLENE GLYCOL 3350 119 GM BTL PO SCH (09:07)
[2017-10-14] MEDS: ENOXAPARIN NA (PORCINE) 40 MG/0.4 ML DISP.SYRIN SQ SCH (09:07)
[2017-10-14] MEDS: SODIUM CHLORIDE 0.45% 1,000 ML IV SCH (12:29)
--- NOTE | 2017-10-14 13:40 | MSN ---
Progress Note (short form) - Note Progress Note: SUBJECTIVE: 31 year old female with PMH sickle cell disease, gastric ulcers, chronic L lateral ankle ulcer and avascular necrosis of B/L hips, presents with acute sickle cell vaso-occlusive crisis and possible acute chest syndrome s/p hyperbaric oxygen treatment. Today, patient was seen and examined. Pt c/o intermittent "very little, dull chest pain" that is improved from previously. She denies chest pain at the moment. Pt also reports mild pain in B/L knees and B/L hips. No events overnight. Pt will undergo blood transfusion later today due to continued elevated retic count and decreased Hb, Hct. Pt states she has less ankle swelling and reports she elevates her legs at night. She reports requiring supplemental O2 2L by nasal cannula at night and obtained Tubigrips to help alleviate ankle swelling. Pt was given Solugel for wound dressing as alternative to Hydrofera Blue. OBJECTIVE: Last Vital Signs Temp Pulse Resp BP Pulse Ox 98.4 F 67 20 101/59 95 10/14/17 09:00 10/14/17 09:00 10/14/17 09:00 10/14/17 09:00 10/14/17 09:00 GENERAL: Awake, alert, and fully oriented, in no acute distress. HEAD: Normal with no signs of trauma. EYES: Pupils equal, round and reactive to light, extraocular movements intact, B /L scleroicterus, conjunctiva clear. No lid lag. Fundus unable to be clearly visualized due to lack of pupil dilation. ENT: Ears normal, nares patent, oropharynx clear without exudates. Moist mucous membranes. NECK: full range of motion, trachea midline, supple. No cervical lymphadenopathy. LUNGS: Breath sounds equal, clear to auscultation in upper lobes. Diminished breath sounds at bilateral lung bases. No wheezes, and no crackles. No accessory muscle use. Resonant to percussion. HEART: Regular rate and rhythm, normal S1 and S2 with mid-late systolic 3/6 murmur heard best at L lateral sternal border. ABDOMEN: Soft, nontender, not distended, normoactive bowel sounds in all four quadrants, no guarding, no rebound, no masses. No hepatomegaly or splenomegaly appreciated upon palpation. EXTREMITIES: 2+ pulses throughout, trace edema at B/L ankles, warm, well perfused. Capillary refill <2 s; mild yellowing of nails on B/L UE noted. No calf tenderness. NEUROLOGICAL: Normal speech, normal gait. PSYCHIATRIC: Cooperative with good eye contact. Appropriate mood and affect. SKIN: Warm, dry, normal turgor. Anion Gap Anion Gap 11 (8-16) 10/14/17 06:30 CBC, BMP 10/14/17 06:30 10/14/17 06:30 CBC,CMP WBC 11.0 K/mm3 (4.0-10.0) H 10/14/17 06:30 RBC 2.37 M/mm3 (3.60-5.2) L 10/14/17 06:30 Hgb 6.7 GM/dL (10.7-15.3) L* 10/14/17 06:30 Hct 18.8 % (32.4-45.2) L 10/14/17 06:30 MCV 79.0 fl (80-96) L 10/14/17 06:30 MCH 28.2 pg (25.7-33.7) 10/14/17 06:30 MCHC 35.7 g/dl (32.0-36.0) 10/14/17 06:30 RDW 21.2 % (11.6-15.6) H 10/14/17 06:30 Plt Count 287 K/MM3 (134-434) 10/14/17 06:30 MPV 7.8 fl (7.5-11.1) 10/14/17 06:30 Total Counted 100 10/13/17 16:00 Neutrophils % 50.9 % (42.8-82.8) 10/14/17 06:30 Neutrophils % (Manual) 51.0 % (42.8-82.8) 10/13/17 16:00 Lymphocytes % 24.9 % (8-40) 10/14/17 06:30 Lymphocytes % (Manual) 25.0 % (8-40) 10/13/17 16:00 Monocytes % 17.5 % (3.8-10.2) H 10/14/17 06:30 Monocytes % (Manual) 17 % (3.8-10.2) H* 10/13/17 16:00 Eosinophils % 6.0 % (0-4.5) H 10/14/17 06:30 Eosinophils % (Manual) 3.0 % (0-4.5) 10/13/17 16:00 Basophils % 0.7 % (0-2.0) 10/14/17 06:30 Basophils % (Manual) 2.0 % (0-2.0) 10/13/17 16:00 Nucleated RBC % 4 % (0-0) H 10/13/17 16:00 Hypochromia 2+ 10/13/17 16:00 Platelet Estimate Adequate 10/13/17 16:00 Platelet Comment 10/13/17 16:00 Polychromasia 1+ 10/13/17 16:00 Poikilocytosis 2+ 10/13/17 16:00 Anisocytosis 2+ 10/13/17 16:00 Microcytosis 1+ 10/13/17 16:00 Macrocytosis 1+ 10/13/17 16:00 Sickle Cells 2+ 10/13/17 16:00 Target Cells 1+ 10/13/17 16:00 Stomatocytes Few 10/09/17 09:06 [place] Bodies Seen 10/13/17 16:00 Retic Count 9.66 % (0.5-1.5) H D 10/14/17 06:30 Hemoglobin A Cancelled 10/11/17 21:30 Hemoglobin A2 Cancelled 10/11/17 21:30 Hemoglobin C Cancelled 10/11/17 21:30 Hemoglobin S Cancelled 10/11/17 21:30 Variant Hemoglobin Cancelled 10/11/17 21:30 Hemoglobin Interpret Cancelled 10/11/17 21:30 Maternal Rh Cancelled 10/11/17 21:30 Hemoglobin Solubility Cancelled 10/11/17 21:30 Sodium 141 mmol/L (136-145) 10/14/17 06:30 Potassium 3.9 mmol/L (3.5-5.1) 10/14/17 06:30 Chloride 106 mmol/L (98-107) 10/14/17 06:30 Carbon Dioxide 24 mmol/L (21-32) 10/14/17 06:30 Anion Gap 11 (8-16) 10/14/17 06:30 BUN 5 mg/dL (7-18) L D 10/14/17 06:30 Creatinine 0.3 mg/dL (0.55-1.02) L 10/14/17 06:30 Creat Clearance w eGFR > 60 (>60) 10/14/17 06:30 Random Glucose 74 mg/dL (74-106) 10/14/17 06:30 Calcium 8.5 mg/dL (8.5-10.1) 10/14/17 06:30 Total Bilirubin 5.5 mg/dL (0.2-1.0) H 10/14/17 06:30 Direct Bilirubin 0.3 mg/dL (0.0-0.2) H 10/14/17 06:30 AST 31 U/L (15-37) 10/14/17 06:30 ALT 20 U/L (12-78) 10/14/17 06:30 Alkaline Phosphatase 51 U/L (45-117) 10/14/17 06:30 LD Total 532 U/L (84-246) H 10/14/17 06:30 Creatine Kinase 57 IU/L (26-192) 10/10/17 13:55 Troponin I < 0.02 ng/ml (0.00-0.05) 10/10/17 13:55 Total Protein 5.9 g/dl (6.4-8.2) L 10/14/17 06:30 Albumin 3.4 g/dl (3.4-5.0) 10/14/17 06:30 Total Amylase 36 U/L (25-115) 10/11/17 06:00 Lipase 80 U/L (73-393) 10/11/17 06:00 Current Medications Diphenhydramine HCl (Benadryl -) 25 mg PO TID [facility] Last Admin: 10/14/17 13:21 Dose: 25 mg Enoxaparin Sodium (Lovenox -) 40 mg SQ DAILY [facility] Last Admin: 10/14/17 09:07 Dose: 40 mg Folic Acid (Folic Acid -) 1 mg PO DAILY [facility] Last Admin: 10/14/17 09:06 Dose: 1 mg Hydromorphone HCl (Dilaudid Injection -) 3 mg IVPB Q3H PRN PRN Reason: PAIN Sodium Chloride (1/2 Normal Saline) 1,000 mls @ 75 mls/hr IV ASDIR [facility] Last Admin: 10/14/17 12:29 Dose: Not Given Levofloxacin (Levaquin -) 500 mg PO DAILY@0600 DEBBIE Stop: 10/15/17 06:01 Last Admin: 10/14/17 05:25 Dose: 500 mg Morphine Sulfate (Ms Contin -) 30 mg PO Q12H [facility] Last Admin: 10/14/17 06:29 Dose: 30 mg Pantoprazole Sodium (Protonix -) 40 mg PO DAILY DEBBIE Last Admin: 10/14/17 09:06 Dose: 40 mg Polyethylene Glycol (Miralax (For Daily Use) -) 17 gm PO DAILY [facility] Last Admin: 10/14/17 09:07 Dose: 17 gm Zinc Sulfate (Orazinc -) 220 mg PO DAILY [facility] Last Admin: 10/14/17 09:06 Dose: 220 mg Active Medications Generic Name Dose Route Start Last Admin Trade Name Freq PRN Reason Stop Dose Admin Diphenhydramine HCl 25 mg 10/07/17 22:00 10/14/17 13:21 Benadryl - PO 25 mg TID DEBBIE Administration Enoxaparin Sodium 40 mg 10/08/17 13:30 10/14/17 09:07 Lovenox - SQ 40 mg DAILY [facility] Administration Folic Acid 1 mg 10/08/17 10:00 10/14/17 09:06 Folic Acid - PO 1 mg DAILY [facility] Administration Hydromorphone HCl 3 mg 10/14/17 14:27 Dilaudid Injection - IVPB Q3H PRN PAIN Sodium Chloride 1,000 mls @ 75 mls/hr 10/13/17 11:06 10/14/17 12:29 1/2 Normal Saline IV Not Given ASDIR DEBBIE Levofloxacin 500 mg 10/14/17 06:00 10/14/17 05:25 Levaquin - PO 10/15/17 06:01 500 mg DAILY@0600 DEBBIE Administration Morphine Sulfate 30 mg 10/12/17 19:15 10/14/17 06:29 Ms Contin - PO 30 mg Q12H DEBBIE Administration Pantoprazole Sodium 40 mg 10/08/17 10:00 10/14/17 09:06 Protonix - PO 40 mg DAILY DEBBIE Administration Polyethylene Glycol 17 gm 10/11/17 13:45 10/14/17 09:07 Miralax (For Daily Use) - PO 17 gm DAILY DEBBIE Administration Zinc Sulfate 220 mg 10/08/17 10:00 10/14/17 09:06 Orazinc - PO 220 mg DAILY DEBBIE Administration IMAGIN10/14/17 7:50am CXR --> mild b/l basilar atelectatic changes. no evidence of vascular congestion, no large pleural effusion or pneumothorax. 10/13/17 7am CXR --> since CXR performed 10/11, increased atelectasis with some pleural reaction at bases. R jugular line remains. 10/11/17 6am CXR --> progressive L lung base changes 10/11/17 2:30pm CXR --> s/p R IJ central venous catheter, no PTX. Small b/l pleural effusions unchanged. Assessment 31 year old female with PMH of sickle cell disease, gastric ulcers, chronic ulcer on L lateral malleolus, and avascular necrosis of B/L hips presenting with sickle cell vaso-occlusive crisis and possible acute chest syndrome s/p hyperbaric oxygen treatment. Plan #acute sickle cell vaso-occlusive crisis - 1 unit PRBC transfused 10/12/17; will transfuse 1 unit PRBC today and monitor Hb/Hct. CBC to be performed after transfusion. - ordered retic count, LDH, t. bili with routine CBC for 10/15 6am blood draw. - continue to monitor labs for end organ damage. LFTs wnl. - continue Dilaudid and MS Contin for pain - continue folic acid & zinc #possible pna vs acute chest syndrome - continue Levaquin 500mg PO daily @6am; day 4 of abx now. stop abx in 1 day. ( total of 5 days). - ACS less likely based on clinical correlation - encourage incentive spirometer - supplemental O2 prn #gastric ulcer - f/u results from EGD biopsy with Dr. Byrne as outpatient in 1 week. #FEN - fluids: 1/2 NS @75 mls/hr - electrolytes: wnl, continue to monitor - nutrition: regular diet #prophylaxis - DVT ppx with Lovenox - GI ppx with Protonix
--- NOTE | 2017-10-14 14:06 | PN ---
Progress Note (short form) - Note Progress Note: PAtient seen and examined Has low back pain Last Vital Signs Temp Pulse Resp BP Pulse Ox 98.4 F 62 20 107/65 95 10/14/17 13:58 10/14/17 13:58 10/14/17 13:58 10/14/17 13:58 10/14/17 09:00 Cor: RSR, No murmurs, No gallops Lungs: Clear to P&A Abd: Soft, Normal bowel sounds, mild epigastric tenderness Ext:No significant edema Abnormal Lab Results 10/12/17 10/13/17 10/14/17 09:45 16:00 06:30 WBC 11.0 H RBC 2.52 L 2.37 L Hgb 7.1 L 6.7 L* Hct 19.8 L 18.8 L MCV 78.3 L 79.0 L RDW 20.7 H 21.2 H Monocytes % 17.5 H Monocytes % (Manual) 17 H* Eosinophils % 6.0 H Nucleated RBC % 4 H Retic Count 9.66 H D BUN Creatinine Total Bilirubin Direct Bilirubin LD Total Total Protein Crossmatch See Detail 10/14/17 06:30 WBC RBC Hgb Hct MCV RDW Monocytes % Monocytes % (Manual) Eosinophils % Nucleated RBC % Retic Count BUN 5 L D Creatinine 0.3 L Total Bilirubin 5.5 H Direct Bilirubin 0.3 H LD Total 532 H Total Protein 5.9 L Crossmatch Home Medication List Medication Instructions Recorded Confirmed Type Ascorbic Acid [Vitamin C -] 500 mg PO BID 10/07/17 10/07/17 History Diphenhydramine HCl [Benadryl -] 25 mg PO Q6H 10/07/17 10/07/17 History Folic Acid - 1 mg PO DAILY 10/07/17 10/07/17 History Hydromorphone [Dilaudid -] 4 mg PO Q4H PRN 10/07/17 10/07/17 History Pantoprazole Sodium [Protonix -] 40 mg PO DAILY 10/07/17 10/07/17 History Zinc Sulfate 220 mg PO DAILY 10/07/17 10/07/17 History Active Medications Generic Name Dose Route Start Last Admin Trade Name Freq PRN Reason Stop Dose Admin Diphenhydramine HCl 25 mg 10/07/17 22:00 10/14/17 13:21 Benadryl - PO 25 mg TID DEBBIE Administration Enoxaparin Sodium 40 mg 10/08/17 13:30 10/14/17 09:07 Lovenox - SQ 40 mg DAILY DEBBIE Administration Folic Acid 1 mg 10/08/17 10:00 10/14/17 09:06 Folic Acid - PO 1 mg DAILY DEBBIE Administration Hydromorphone HCl 3 mg 10/08/17 10:47 10/14/17 10:56 Dilaudid Injection - IVPB 3 mg Q3H PRN Administration PAIN Sodium Chloride 1,000 mls @ 75 mls/hr 10/13/17 11:06 10/14/17 12:29 1/2 Normal Saline IV Not Given ASDIR DEBBIE Levofloxacin 500 mg 10/14/17 06:00 10/14/17 05:25 Levaquin - PO 10/15/17 06:01 500 mg DAILY@0600 DEBBIE Administration Morphine Sulfate 30 mg 10/12/17 19:15 10/14/17 06:29 Ms Contin - PO 30 mg Q12H DEBBIE Administration Pantoprazole Sodium 40 mg 10/08/17 10:00 10/14/17 09:06 Protonix - PO 40 mg DAILY DEBBIE Administration Polyethylene Glycol 17 gm 10/11/17 13:45 10/14/17 09:07 Miralax (For Daily Use) - PO 17 gm DAILY DEBBIE Administration Zinc Sulfate 220 mg 10/08/17 10:00 10/14/17 09:06 Orazinc - PO 220 mg DAILY DEBBIE Administration A/P 31 y/o patient with sickle cell disease, vaso occlusive crisis pain control/folic acid/dvt prophylaxis/incentive spirometer continue supportive care
--- NOTE | 2017-10-14 14:23 | PN ---
Progress Note (short form) - Note Progress Note: PULMONARY APEARS COMFORTABLE ON O2 VSS/AFEBRILE ICTERIC DIMINISHED BREATH SOUNDS BASES S1S2 BS+ NO EDEMA IMAGES/NOTES/MEDS/LABS REVIEWED Sickle Cell Crisis slow resolution Atelectasis Anemia LE Ulcers - encouraged incentive spirometry - pain control - ambulate - supplemental O2 - on empiric antibiotics - monitor H/H - transfuse as needed - folic acid - DVT prophylaxis Lacho THOMAS MD
[2017-10-14] MEDS: HYDROmorphone HCL CARPU-JECT 1 MG/1 ML DISP.SYRIN IVPB PRN ×2 (14:33→18:09)
--- NOTE | 2017-10-14 15:42 | PN ---
Teaching Attending Note Name of Resident: Fransisca Yo ATTENDING PHYSICIAN STATEMENT I saw and evaluated the patient. I reviewed the resident's note and discussed the case with the resident. I agree with the resident's findings and plan as documented. SUBJECTIVE: pain is better today. has no fever or chills . has no CP ro oSOB OBJECTIVE: NAD CV: RRR, 3/6 SM at LLSB Lungs: CTAB , decreased breath sounds at bases Ext: trace edema. L leg ulcer on lateral malleolus with clean dressing ASSESSMENT AND PLAN: 31 y/o unfortunate lady with h/o sickle cell disease , chronic L foot ulcer and avascular necrosis of Hip who presented with pain after hyperbaric treatment. She was found to have Acute sickle cell crisis 1- Acute Sickle cell crisis : - Hb dropped and hemolysis markers increased. will transfuse one unit today - repeat CBC this evening. - cont IVF - Cont dilaudid and MS contin. - probably will start de-escalating pain meds tomorrow 2- PNA : - cont levaquin for one more day 3- Duodenitis : on EGD . Bx taken . follow up as out pt . 4-HLOC
--- NOTE | 2017-10-14 18:18 | PN ---
Physical Exam: SUBJECTIVE: Patient seen and examined. Pt denies fever, chills, sob, chest pain , abdominal pain. Pt is trying to wean herself down on the pain meds in preparation for D/C. Pt reports using her incentive spirometer and making good effort to eat meals and walk around. No events overnight. OBJECTIVE: Vital Signs Period Temp Pulse Resp BP Sys/Quijano Pulse Ox Last 24 Hr 98.4 F-99.2 F 62-67 18-20 101-124/58-68 95-99 GENERAL: The patient is awake, alert, and fully oriented, in no acute distress. LUNGS: Breath sounds equal, clear to auscultation bilaterally, no wheezes, no crackles, no accessory muscle use. HEART: Regular rate and rhythm, 2/6 systolic murmur heard best at the Left lower sternal border. ABDOMEN: Soft, nontender, nondistended. EXTREMITIES: Warm, well-perfused, trace edema to brandi LE. Left lateral ankle wound wrapped. PSYCH: Normal mood, normal affect. SKIN: Warm, dry, normal turgor, no rashes or lesions noted Laboratory Results - last 24 hr 10/12/17 10/13/17 10/14/17 09:45 16:00 06:30 WBC 9.9 11.0 H RBC 2.37 L Hgb 6.7 L* Hct 18.8 L MCV 79.0 L MCH 28.2 MCHC 35.7 RDW 21.2 H Plt Count 287 MPV 7.8 Total Counted 100 Neutrophils % 50.9 Neutrophils % (Manual) 51.0 Lymphocytes % 24.9 Lymphocytes % (Manual) 25.0 Monocytes % 17.5 H Monocytes % (Manual) 17 H* Eosinophils % 6.0 H Eosinophils % (Manual) 3.0 Basophils % 0.7 Basophils % (Manual) 2.0 Nucleated RBC % 4 H Hypochromia 2+ Platelet Estimate Adequate Platelet Comment Polychromasia 1+ Poikilocytosis 2+ Anisocytosis 2+ Microcytosis 1+ Macrocytosis 1+ Sickle Cells 2+ Target Cells 1+ Curtis-[place] Bodies Seen Retic Count 9.66 H D Sodium Potassium Chloride Carbon Dioxide Anion Gap BUN Creatinine Creat Clearance w eGFR Random Glucose Calcium Total Bilirubin Direct Bilirubin AST ALT Alkaline Phosphatase LD Total Total Protein Albumin Blood Type O POSITIVE Antibody Screen Negative Crossmatch See Detail 10/14/17 06:30 WBC RBC Hgb Hct MCV MCH MCHC RDW Plt Count MPV Total Counted Neutrophils % Neutrophils % (Manual) Lymphocytes % Lymphocytes % (Manual) Monocytes % Monocytes % (Manual) Eosinophils % Eosinophils % (Manual) Basophils % Basophils % (Manual) Nucleated RBC % Hypochromia Platelet Estimate Platelet Comment Polychromasia Poikilocytosis Anisocytosis Microcytosis Macrocytosis Sickle Cells Target Cells Curtis[place] Bodies Retic Count Sodium 141 Potassium 3.9 Chloride 106 Carbon Dioxide 24 Anion Gap 11 BUN 5 L D Creatinine 0.3 L Creat Clearance w eGFR > 60 Random Glucose 74 Calcium 8.5 Total Bilirubin 5.5 H Direct Bilirubin 0.3 H AST 31 ALT 20 Alkaline Phosphatase 51 LD Total 532 H Total Protein 5.9 L Albumin 3.4 Blood Type Antibody Screen Crossmatch Active Medications Generic Name Dose Route Start Last Admin Trade Name Freq PRN Reason Stop Dose Admin Diphenhydramine HCl 25 mg 10/07/17 22:00 10/14/17 13:21 Benadryl - PO 25 mg TID DEBBIE Administration Enoxaparin Sodium 40 mg 10/08/17 13:30 10/14/17 09:07 Lovenox - SQ 40 mg DAILY DEBBIE Administration Folic Acid 1 mg 10/08/17 10:00 10/14/17 09:06 Folic Acid - PO 1 mg DAILY DEBBIE Administration Hydromorphone HCl 3 mg 10/14/17 14:27 10/14/17 14:33 Dilaudid Injection - IVPB 3 mg Q3H PRN Administration PAIN Sodium Chloride 1,000 mls @ 75 mls/hr 10/13/17 11:06 10/14/17 12:29 1/2 Normal Saline IV Not Given ASDIR DEBBIE Levofloxacin 500 mg 10/14/17 06:00 10/14/17 05:25 Levaquin - PO 10/15/17 06:01 500 mg DAILY@0600 DEBBIE Administration Morphine Sulfate 30 mg 10/12/17 19:15 10/14/17 06:29 Ms Contin - PO 30 mg Q12H DEBBIE Administration Pantoprazole Sodium 40 mg 10/08/17 10:00 10/14/17 09:06 Protonix - PO 40 mg DAILY DEBBIE Administration Polyethylene Glycol 17 gm 10/11/17 13:45 10/14/17 09:07 Miralax (For Daily Use) - PO 17 gm DAILY DEBBIE Administration Zinc Sulfate 220 mg 10/08/17 10:00 10/14/17 09:06 Orazinc - PO 220 mg DAILY DEBBIE Administration IMAGIN10/14/17 CXR -> no evidence of PTX or CHF. Right basilar atelectatic changes noted. ASSESSMENT/PLAN: 31yo F with PMH of sickle cell anemia, gastric ulcers, chronic Left foot ulcer and avascular necrosis of hip, presents with should and hip pain accompanied by chest pressure s/p hyperbaric treatment. Pt found to have acute sickle cell crisis. # acute sickle cell vaso-occlusive crisis - Hgb down to 6.7 today -> transfuse 1U PRBCs - f/u cbc post transfusion - elevated LDH, retic count and T. bili consistent with ongoing hemolysis - continue Dilaudid prn and MS Contin BID for pain - continue folic acid # Possible pna vs acute chest syndrome - continue Levaquin po - ACS less likely as pt denies chest pain - encourage incentive spirometer - supplemental O2 prn # gastric ulcer - resolved, no active ulcers per EGD - pt cleared for D/C from GI perspective - pt does not require GI ppx at home # Left ankle wound - pt very attentive to wound - wound care supplies and tube compression stockings provided, in addition to regular wound care # FEN - Fluids: 1/2 NS @ 75 ml/hr - Electrolytes: wnl, continue to monitor - Nutrition: regular diet # Prophylaxis - DVT ppx with Lovenox, early ambulation - GI ppx with Protonix Visit type - Emergency Visit Emergency Visit: Yes ED Registration Date: 10/10/17 Care time: The patient presented to the Emergency Department on the above date and was hospitalized for further evaluation of their emergent condition. - New Patient This patient is new to me today: No - Critical Care Critical Care patient: No
[2017-10-14 22:03] LABS: MEAN CELL VOLUME 80.1 fl (80-96); RDW 20.4 % (11.6-15.6)
[2017-10-14 22:04] LABS: MCH 28.3 pg (25.7-33.7); MCHC 35.3 g/dl (32.0-36.0); MEAN PLT VOLUME 7.8 fl (7.5-11.1); WHITE BLOOD COUNT 11.5 K/mm3 (4.0-10.0)
[2017-10-14 22:44] LABS: PLATELET COUNT 310 K/MM3 (134-434)
[2017-10-15] MEDS: SODIUM CHLORIDE 0.45% 1,000 ML IV SCH ×2 (01:40→15:55)
[2017-10-15] MEDS: HYDROmorphone HCL CARPU-JECT 2 MG/1 ML DISP.SYRIN IVPB PRN ×6 (01:41→20:00)
[2017-10-15] MEDS: LEVOFLOXACIN 500 MG TABLET (FP) PO SCH (05:32)
[2017-10-15] MEDS: diphenhydrAMINE HCL 25 MG CAPSULE (FP) PO SCH ×3 (05:32→22:06)
[2017-10-15] MEDS: morphine SO4 SUSTAINED ACTING 30 MG TABLET.SA PO SCH (07:12)
[2017-10-15 08:09] LABS: MCH 28.3 pg (25.7-33.7); MCHC 35.3 g/dl (32.0-36.0); MEAN CELL VOLUME 80.1 fl (80-96); PLATELET COUNT 306 K/MM3 (134-434); RDW 20.3 % (11.6-15.6)
[2017-10-15 08:26] LABS: ALBUMIN 3.5 g/dl (3.4-5.0); ANION GAP 10 (8-16); CALCIUM 8.8 mg/dL (8.5-10.1); CO2 25 mmol/L (21-32); GLUCOSE,RANDOM 75 mg/dL (74-106)
[2017-10-15 08:31] LABS: ALK PHOS 63 U/L (45-117); BILIRUBIN,TOTAL 5.1 mg/dL (0.2-1.0); CREATININE 0.4 mg/dL (0.55-1.02); LDH 523 U/L (84-246); SGOT/AST 34 U/L (15-37); SGPT/ALT 23 U/L (12-78)
--- NOTE | 2017-10-15 09:22 | PN ---
Physical Exam: SUBJECTIVE: Patient seen and examined. Pt denies fever, chills, chest pain, sob. Pain has improved. No events overnight. OBJECTIVE: Vital Signs Period Temp Pulse Resp BP Sys/Quijano Pulse Ox Last 24 Hr 98.3 F-98.5 F 57-70 20-20 107-124/53-70 97 GENERAL: The patient is awake, alert, and fully oriented, in no acute distress. LUNGS: Breath sounds equal, clear to auscultation bilaterally, no wheezes, no crackles, no accessory muscle use. HEART: Regular rate and rhythm, 2/6 systolic murmur heard best at the Left lower sternal border. ABDOMEN: Soft, nontender, nondistended. EXTREMITIES: Warm, well-perfused. Trace pedal edema to brandi LE, improved since use of tube compression stockings supplied yesterday. Left lateral ankle wound wrapped. PSYCH: Normal mood, normal affect. SKIN: Warm, dry, normal turgor, no rashes or lesions noted Laboratory Results - last 24 hr 10/12/17 10/14/17 10/15/17 09:45 21:00 06:00 WBC 11.5 H RBC 2.76 L 2.81 L Hgb 7.8 L D 7.9 L Hct 22.1 L D 22.5 L MCV 80.1 80.1 MCH 28.3 28.3 MCHC 35.3 35.3 RDW 20.4 H 20.3 H Plt Count 310 306 MPV 7.8 8.0 Neutrophils % No Result Required. Lymphocytes % No Result Required. Retic Count Sodium Potassium Chloride Carbon Dioxide Anion Gap BUN Creatinine Creat Clearance w eGFR Random Glucose Calcium Total Bilirubin AST ALT Alkaline Phosphatase LD Total Total Protein Albumin Blood Type O POSITIVE Antibody Screen Negative Crossmatch See Detail 10/15/17 10/15/17 06:00 06:00 WBC RBC Hgb Hct MCV MCH MCHC RDW Plt Count MPV Neutrophils % Lymphocytes % Retic Count 9.96 H Sodium 141 Potassium 3.9 Chloride 106 Carbon Dioxide 25 Anion Gap 10 BUN 5 L Creatinine 0.4 L D Creat Clearance w eGFR > 60 Random Glucose 75 Calcium 8.8 Total Bilirubin 5.1 H AST 34 ALT 23 Alkaline Phosphatase 63 D LD Total 523 H Total Protein 6.0 L Albumin 3.5 Blood Type Antibody Screen Crossmatch Active Medications Generic Name Dose Route Start Last Admin Trade Name Freq PRN Reason Stop Dose Admin Diphenhydramine HCl 25 mg 10/07/17 22:00 10/15/17 05:32 Benadryl - PO 25 mg TID DEBBIE Administration Enoxaparin Sodium 40 mg 10/08/17 13:30 10/14/17 09:07 Lovenox - SQ 40 mg DAILY DEBBIE Administration Folic Acid 1 mg 10/08/17 10:00 10/14/17 09:06 Folic Acid - PO 1 mg DAILY DEBBIE Administration Hydromorphone HCl 3 mg 10/14/17 21:54 10/15/17 05:33 Dilaudid Injection - IVPB 3 mg Q3H PRN Administration PAIN Sodium Chloride 1,000 mls @ 75 mls/hr 10/13/17 11:06 10/15/17 01:40 1/2 Normal Saline IV 75 mls/hr ASDIR DEBBIE Administration Morphine Sulfate 30 mg 10/12/17 19:15 10/15/17 07:12 Ms Contin - PO 30 mg Q12H DEBBIE Administration Pantoprazole Sodium 40 mg 10/08/17 10:00 10/14/17 09:06 Protonix - PO 40 mg DAILY DEBBIE Administration Polyethylene Glycol 17 gm 10/11/17 13:45 10/14/17 09:07 Miralax (For Daily Use) - PO 17 gm DAILY DEBBIE Administration Zinc Sulfate 220 mg 10/08/17 10:00 10/14/17 09:06 Orazinc - PO 220 mg DAILY DEBBIE Administration ASSESSMENT/PLAN: 31yo F with PMH of sickle cell anemia, gastric ulcers, chronic Left foot ulcer and avascular necrosis of hip, presents with should and hip pain accompanied by chest pressure s/p hyperbaric treatment. Pt found to have acute sickle cell crisis. # acute sickle cell vaso-occlusive crisis - Hgb stable today, s/p transfusion of 1U PRBCs last night - T. bili trending down. LDH and retic count still elevated, continue to monitor. - continue Dilaudid prn for pain - reduce MS Contin to 15mg BID - continue folic acid # Pna - Levaquin D/Marin after last dose this morning - encourage incentive spirometer - supplemental O2 prn # duodenitis - f/u as outpatient with GI (Dr. Byrne) # FEN - Fluids: 1/2 NS @ 75 ml/hr - Electrolytes: wnl, continue to monitor - Nutrition: regular diet # Prophylaxis - DVT ppx with Lovenox, early ambulation - GI ppx with Protonix Visit type - Emergency Visit Emergency Visit: Yes ED Registration Date: 10/10/17 Care time: The patient presented to the Emergency Department on the above date and was hospitalized for further evaluation of their emergent condition. - New Patient This patient is new to me today: No - Critical Care Critical Care patient: No
[2017-10-15 09:30] LABS: BILIRUBIN,DIRECT 0.3 mg/dL (0.0-0.2)
[2017-10-15] MEDS: ENOXAPARIN NA (PORCINE) 40 MG/0.4 ML DISP.SYRIN SQ SCH (09:33)
[2017-10-15] MEDS: FOLIC ACID 1 MG TABLET (FP) PO SCH (09:33)
[2017-10-15] MEDS: POLYETHYLENE GLYCOL 3350 119 GM BTL PO SCH (09:33)
[2017-10-15] MEDS: PANTOPRAZOLE 40 MG TABLET (FP) PO SCH (09:33)
[2017-10-15] MEDS: ZINC SULFATE 220 MG CAPSULE (FP) PO SCH (09:33)
[2017-10-15 09:44] LABS: TOTAL CELLS COUNTED 100; WHITE BLOOD COUNT 10.6 K/mm3 (4.0-10.0)
[2017-10-15 09:45] LABS: NUCLEATED RED BLOOD CELL 3 % (0-0); PLATELET ESTIMATE ADEQUATE
--- NOTE | 2017-10-15 09:46 | PN ---
Teaching Attending Note Name of Resident: Fransisca Yo ATTENDING PHYSICIAN STATEMENT I saw and evaluated the patient. I reviewed the resident's note and discussed the case with the resident. I agree with the resident's findings and plan as documented. SUBJECTIVE: No fever or chills. no cp or SOB . pain has improved OBJECTIVE: NAD CV: RRR, 3/6 SM at LLSB Lungs: CTAB , decreased breath sounds at bases Ext: trace edema. L leg ulcer on lateral malleolus with clean dressing ASSESSMENT AND PLAN: 31 y/o unfortunate lady with h/o sickle cell disease , chronic L foot ulcer and avascular necrosis of Hip who presented with pain after hyperbaric treatment. She was found to have Acute sickle cell crisis 1- Acute Sickle cell crisis : stable HB after transfusion yesterday. hemolysis markers declined . - monitor HB . No need fro transfusion today - Cont dilaudid and decrease her MS contin to 15 BID . pt aware. - tomorrow , will switch dilaudid to po 2- PNA : - Last day of Levaquin 3- Duodenitis : out pt f/u 4-HLOC Possible dc Tuesday if HB remains stable
[2017-10-15] MEDS ORDERED: morphine SO4 SUSTAINED ACTING 15 MG TABLET.SA PO SCH (12:45)
--- NOTE | 2017-10-15 14:23 | PN ---
Progress Note (short form) - Note Progress Note: Seen in follow up. No new complaints. Occasional short of breath - relieved with O2 by NC. Pain controlled - comfortable with plan to taper analgesia. Meds reviewed. Current Medications Generic Name Dose Route Start Last Admin Trade Name Freq PRN Reason Stop Dose Admin Diphenhydramine HCl 25 mg 10/07/17 22:00 10/15/17 05:32 Benadryl - PO 25 mg TID DEBBIE Administration Enoxaparin Sodium 40 mg 10/08/17 13:30 10/15/17 09:33 Lovenox - SQ 40 mg DAILY DEBBIE Administration Folic Acid 1 mg 10/08/17 10:00 10/15/17 09:33 Folic Acid - PO 1 mg DAILY DEBBIE Administration Hydromorphone HCl 3 mg 10/14/17 21:54 10/15/17 12:35 Dilaudid Injection - IVPB 3 mg Q3H PRN Administration PAIN Sodium Chloride 1,000 mls @ 75 mls/hr 10/13/17 11:06 10/15/17 01:40 1/2 Normal Saline IV 75 mls/hr ASDIR DEBBIE Administration Morphine Sulfate 15 mg 10/15/17 22:00 Ms Contin - PO BID DEBBIE Pantoprazole Sodium 40 mg 10/08/17 10:00 10/15/17 09:33 Protonix - PO 40 mg DAILY DEBBIE Administration Polyethylene Glycol 17 gm 10/11/17 13:45 10/15/17 09:33 Miralax (For Daily Use) - PO 17 gm DAILY DEBBIE Administration Zinc Sulfate 220 mg 10/08/17 10:00 10/15/17 09:33 Orazinc - PO 220 mg DAILY DEBBIE Administration On exam: Last Vital Signs Temp Pulse Resp BP Pulse Ox 99.1 F 69 17 108/63 97 10/15/17 10:00 10/15/17 10:00 10/15/17 10:00 10/15/17 10:00 10/15/17 09:00 General: Looks well, sitting in bed. Extremities: Mild pallor, icteric. Chest: breathing comfortably, clear to auscultation CVS: S1, S2, no gallop or murmur. Abdomen: Soft, no organomegaly, no masses. Neuro: Alert, oriented, non-focal. CBC, BMP 10/15/17 06:00 10/15/17 06:00 Assessment. SSD with vaso-occlusive crisis - improving. Continue opioid taper - with transition to oral analgesia.
[2017-10-15] MEDS: morphine SO4 SUSTAINED ACTING 15 MG TABLET.SA PO SCH (22:06)
[2017-10-16] MEDS: HYDROmorphone HCL CARPU-JECT 2 MG/1 ML DISP.SYRIN IVPB PRN ×4 (03:52→10:12)
[2017-10-16] MEDS: SODIUM CHLORIDE 0.45% 1,000 ML IV SCH ×3 (05:30→18:55)
[2017-10-16] MEDS: diphenhydrAMINE HCL 25 MG CAPSULE (FP) PO SCH ×3 (05:30→21:55)
[2017-10-16 08:21] LABS: ALBUMIN 3.7 g/dl (3.4-5.0); ANION GAP 5 (8-16); BASOPHIL 0.6 % (0-2.0); CALCIUM 8.3 mg/dL (8.5-10.1); CO2 29 mmol/L (21-32); EOSINOPHIL 6.7 % (0-4.5); MCHC 34.8 g/dl (32.0-36.0); MEAN CELL VOLUME 80.5 fl (80-96); MEAN PLT VOLUME 8.1 fl (7.5-11.1); NEUTROPHILS 47.3 % (42.8-82.8); PLATELET COUNT 308 K/MM3 (134-434); RDW 19.7 % (11.6-15.6); WHITE BLOOD COUNT 10.5 K/mm3 (4.0-10.0)
[2017-10-16 08:26] LABS: ALK PHOS 69 U/L (45-117); BILIRUBIN,TOTAL 5.8 mg/dL (0.2-1.0); CREATININE 0.4 mg/dL (0.55-1.02); GLUCOSE,RANDOM 72 mg/dL (74-106); LDH 552 U/L (84-246); SGOT/AST 37 U/L (15-37); SGPT/ALT 28 U/L (12-78); TOT PROT 6.5 g/dl (6.4-8.2)
[2017-10-16] MEDS: PANTOPRAZOLE 40 MG TABLET (FP) PO SCH (10:09)
[2017-10-16] MEDS: FOLIC ACID 1 MG TABLET (FP) PO SCH (10:09)
[2017-10-16] MEDS: ZINC SULFATE 220 MG CAPSULE (FP) PO SCH (10:09)
[2017-10-16] MEDS: morphine SO4 SUSTAINED ACTING 15 MG TABLET.SA PO SCH (10:09)
[2017-10-16] MEDS: POLYETHYLENE GLYCOL 3350 119 GM BTL PO SCH (10:10)
[2017-10-16] MEDS: ENOXAPARIN NA (PORCINE) 40 MG/0.4 ML DISP.SYRIN SQ SCH (10:10)
--- NOTE | 2017-10-16 12:24 | PN ---
Progress Note (short form) - Note Progress Note: Subjective: pain has improved . No cp or SOB Objective: Vital Signs: Last Vital Signs Temp Pulse Resp BP Pulse Ox 98.1 F 68 16 102/57 97 10/16/17 10:08 10/16/17 10:08 10/16/17 10:08 10/16/17 10:08 10/15/17 20:15 Laboratory Results - last 24 hr 10/12/17 10/16/17 10/16/17 09:45 06:00 06:00 WBC 10.5 H RBC 3.03 L Hgb 8.5 L Hct 24.4 L MCV 80.5 MCH 28.0 MCHC 34.8 RDW 19.7 H Plt Count 308 MPV 8.1 Neutrophils % 47.3 Lymphocytes % 26.5 Monocytes % 18.9 H Eosinophils % 6.7 H Basophils % 0.6 Retic Count 7.50 H D Sodium 141 Potassium 4.2 Chloride 107 Carbon Dioxide 29 Anion Gap 5 L BUN 6 L Creatinine 0.4 L Creat Clearance w eGFR > 60 Random Glucose 72 L Calcium 8.3 L Ferritin Total Bilirubin 5.8 H AST 37 ALT 28 D Alkaline Phosphatase 69 LD Total 552 H Total Protein 6.5 Albumin 3.7 Blood Type O POSITIVE Antibody Screen Negative Crossmatch See Detail 10/16/17 06:00 WBC RBC Hgb Hct MCV MCH MCHC RDW Plt Count MPV Neutrophils % Lymphocytes % Monocytes % Eosinophils % Basophils % Retic Count Sodium Potassium Chloride Carbon Dioxide Anion Gap BUN Creatinine Creat Clearance w eGFR Random Glucose Calcium Ferritin 1916.432 H Total Bilirubin AST ALT Alkaline Phosphatase LD Total Total Protein Albumin Blood Type Antibody Screen Crossmatch Physical Exam: NAD CV: RRR, 3/6 SM at LLSB Lungs: CTAB , decreased breath sounds at bases Ext: trace edema. L leg ulcer on lateral malleolus with clean dressing ASSESSMENT AND PLAN: 31 y/o unfortunate lady with h/o sickle cell disease , chronic L foot ulcer and avascular necrosis of Hip who presented with pain after hyperbaric treatment. She was found to have Acute sickle cell crisis 1- Acute Sickle cell crisis : stable HB. LDH and Bili have slightly increased. - monitor HB . - switch to po dilaudid - last dose of MS contin this evening - cont IVF at 75 CC/hr 2- PNA : - Completed a course of levaquin 3- Duodenitis : out pt f/u 4-HLOC Possible dc Tuesday if HB remains stable Visit type - Emergency Visit Emergency Visit: Yes ED Registration Date: 10/10/17 Care time: The patient presented to the Emergency Department on the above date and was hospitalized for further evaluation of their emergent condition. - New Patient This patient is new to me today: No - Critical Care Critical Care patient: No
[2017-10-16] MEDS: HYDROmorphone HCL 2 MG TABLET PO PRN ×4 (13:49→23:47)
--- NOTE | 2017-10-16 14:03 | PN ---
Progress Note (short form) - Note Progress Note: Seen in follow up. No new complaints, overall improving. Pain controlled - comfortable with plan to taper analgesia. Meds reviewed. Current Medications Generic Name Dose Route Start Last Admin Trade Name Freervin PRN Reason Stop Dose Admin Diphenhydramine HCl 25 mg 10/07/17 22:00 10/16/17 13:45 Benadryl - PO 25 mg TID DEBBIE Administration Enoxaparin Sodium 40 mg 10/08/17 13:30 10/16/17 10:10 Lovenox - SQ 40 mg DAILY DEBBIE Administration Folic Acid 1 mg 10/08/17 10:00 10/16/17 10:09 Folic Acid - PO 1 mg DAILY DEBBIE Administration Hydromorphone HCl 3 mg 10/16/17 12:19 10/16/17 13:49 Dilaudid - PO 3 mg Q3H PRN Administration PAIN Sodium Chloride 1,000 mls @ 75 mls/hr 10/13/17 11:06 10/16/17 13:46 1/2 Normal Saline IV Not Given ASDIR DEBBIE Morphine Sulfate 15 mg 10/16/17 22:00 Ms Contin - PO 10/16/17 22:01 BID DEBBIE Pantoprazole Sodium 40 mg 10/08/17 10:00 10/16/17 10:09 Protonix - PO 40 mg DAILY DEBBIE Administration Polyethylene Glycol 17 gm 10/11/17 13:45 10/16/17 10:10 Miralax (For Daily Use) - PO 17 gm DAILY DEBBIE Administration Zinc Sulfate 220 mg 10/08/17 10:00 10/16/17 10:09 Orazinc - PO 220 mg DAILY DEBBIE Administration On exam: Last Vital Signs Temp Pulse Resp BP Pulse Ox 98.1 F 68 16 102/57 97 10/16/17 10:08 10/16/17 10:08 10/16/17 10:08 10/16/17 10:08 10/16/17 09:00 General: Looks well, sitting in bed. Extremities: Mild pallor, icteric. Chest: breathing comfortably, clear to auscultation CVS: S1, S2, no gallop or murmur. Abdomen: Soft, no organomegaly, no masses. Neuro: Alert, oriented, non-focal. CBC, BMP 10/16/17 06:00 10/16/17 06:00 Assessment. SSD with vaso-occlusive crisis - improving. Continue opioid taper - with transition to oral analgesia. Microcytosis noted - unclear why - noted previously. Not iron deficient. Alpha globin mutation screening negative (7 common genes - may be other alpha mutations) Suggested to patient she consider returning to SSD clinic at [facility] for consideration of participation in LE ulcer trial opening there.
[2017-10-16] MEDS ORDERED: morphine SO4 SUSTAINED ACTING 15 MG TABLET.SA PO SCH (22:00)
[2017-10-17] MEDS: HYDROmorphone HCL 2 MG TABLET PO PRN ×3 (04:29→13:21)
[2017-10-17] MEDS: diphenhydrAMINE HCL 25 MG CAPSULE (FP) PO SCH ×2 (05:59→13:43)
[2017-10-17] MEDS: SODIUM CHLORIDE 0.45% 1,000 ML IV SCH ×2 (06:23→13:41)
[2017-10-17 07:35] LABS: MCH 27.5 pg (25.7-33.7); MCHC 33.7 g/dl (32.0-36.0); MEAN CELL VOLUME 81.6 fl (80-96); MEAN PLT VOLUME 8.1 fl (7.5-11.1); PLATELET COUNT 314 K/MM3 (134-434); RDW 19.8 % (11.6-15.6); WHITE BLOOD COUNT 11.6 K/mm3 (4.0-10.0)
[2017-10-17 07:47] LABS: BILIRUBIN,TOTAL 5.7 mg/dL (0.2-1.0)
[2017-10-17] MEDS: FOLIC ACID 1 MG TABLET (FP) PO SCH (09:13)
[2017-10-17] MEDS: ZINC SULFATE 220 MG CAPSULE (FP) PO SCH (09:13)
[2017-10-17] MEDS: POLYETHYLENE GLYCOL 3350 119 GM BTL PO SCH (09:30)
[2017-10-17] MEDS: PANTOPRAZOLE 40 MG TABLET (FP) PO SCH (09:36)
[2017-10-17] MEDS: ENOXAPARIN NA (PORCINE) 40 MG/0.4 ML DISP.SYRIN SQ SCH (09:37)
[2017-10-17 09:41] VITALS: BP 100/56; PULSE 74; TEMP 99
--- NOTE | 2017-10-17 09:42 | DS ---
Physical Exam: SUBJECTIVE: Patient seen and examined. Pt is feeling better this morning. Pt feels ready to go home. Pt denies fever, chills, chest pain, sob, abdominal pain. No events overnight. OBJECTIVE: Vital Signs Period Temp Pulse Resp BP Sys/Quijano Pulse Ox Last 24 Hr 98.1 F-99.5 F 62-77 16-20 91-109/48-63 96 PHYSICAL EXAM GENERAL: The patient is awake, alert, and fully oriented, in no acute distress. HEAD: Normal with no signs of trauma. EYES: Extraocular movements intact, sclera anicteric, conjunctiva clear. ENT: Moist mucous membranes. NECK: Trachea midline, supple. LUNGS: Breath sounds equal, clear to auscultation bilaterally, no wheezes, no crackles, no accessory muscle use. HEART: Regular rate and rhythm, 3/6 holosystolic murmur heard best at the Left lower sternal border. ABDOMEN: Soft, nontender, nondistended. EXTREMITIES: Warm, well-perfused, no edema. Dressing to Left LE intact. Right LE with no bogginess or pedal edema. NEUROLOGICAL: Cranial nerves II through XII grossly intact. Normal speech, gait not observed. PSYCH: Normal mood, normal affect. SKIN: Warm, dry, normal turgor, no rashes or lesions noted. LABS Laboratory Results - last 24 hr 10/17/17 10/17/17 06:15 06:15 WBC 11.6 H RBC 2.94 L Hgb 8.1 L Hct 24.0 L MCV 81.6 MCH 27.5 MCHC 33.7 RDW 19.8 H Plt Count 314 MPV 8.1 Retic Count 3.71 H D Total Bilirubin 5.7 H LD Total 530 H HOSPITAL COURSE: Date of Admission:10/10/17 Date of Discharge: 10/17/17 31yo F with PMH of sickle cell anemia, gastric ulcers, chronic Left foot ulcer and avascular necrosis of hip, presents with should and hip pain accompanied by chest pressure s/p hyperbaric treatment. Pt found to have acute sickle cell crisis. Pt received 2 units of PRBCs during course of hospitalization. Retic count, LDH and T. bili are trending down. Hgb stable, at pt's baseline. Pt received full course of antibiotics for pna. Pt was encouraged to use incentive spirometer, eat meals, and walk as much as possible, which pt did comply with. 10/11/17 blood cultures (-) x 5 days. 10/12/17 urine legionella culture (-). 10/07/17 CXR -> no acute pathology 10/10/17 CXR -> small brandi pleural effusions with underlying opacities most likely atelectasis, however pna cannot be ruled out. 10/11/17 CXR 6:00 -> progressive Left bases changes 10/11/17 CXR 14:22 -> s/p Right Internal Jugular central venous catheter insertion, no PTX. Small brandi pleural effusions unchanged. 10/13/17 CXR -> increased atelectasis with some pleural reaction at brandi bases 10/13/17 EGD -> duodenal inflammation to second part of duodenum. Hiatal hernia. Non-obstructing Schatzki ring at GastroEsophogeal junction. Avoid NSAIDs, f/u in 1 week for biopsy results. 10/14/17 CXR -> Right basilar atelectatic changes. Pt is independent for ADLs. Pt is stable for discharge home. Minutes to complete discharge: 35 Discharge Summary Reason For Visit: SICKLE CELL PAIN CRISIS Current Active Problems Gastric ulcer (Acute) History of ulcer disease (Acute) History of ulceration (Acute) Sickle cell anemia with crisis (Acute) Sickle cell pain crisis (Acute) Condition: Improved - Instructions Diet, Activity, Other Instructions: You were treated for a sickle cell anemia crisis. Please continue to take your home medications as prescribed. The only medication we changed is that we discontinued your Protonix because Dr. Byrne found that you do no have any gastric ulcers anymore. Please continue to eat a regular diet and increase physical activities as tolerated. Please schedule an appointment with your new GastroIntestinal Doctor (Dr. Byrne ) within 1 week of leaving the hospital, to follow-up the biopsy results taken during your EsophagoGastroDuodenoscopy (EGD) exam. Please schedule a follow-up appointment with your Wound Care Doctor (Dr. Friend) within 1 week of leaving the hospital to continue treatment to the wound on your Left ankle. Please schedule an appointment within 1 week of leaving the hospital with a Primary Care Doctor. You are welcome to join our Resident Clinic by contacting Dr. Valente and scheduling an appointment with Dr. Messer (on Tuesday afternoons from 1-4:30pm) or with Dr. Alfaro (on Tuesday afternoons 1-4:30pm). Please follow with Dr. Sheridan in 1 week . we will fax him a report (Fax: ) Blood work in 1 week , to be faxed to Dr. Sheridan . Please return to the hospital immediately if you experience persistent or increased chest pain, joint pain, or for any medical emergency. Referrals: Adonis Valente MD [Staff Physician] - 1 Week (Schedule an appointment with Dr. Messer (on Tuesday afternoons from 1-4:30pm) or with Dr. Alfaro (on Tuesday afternoons 1-4:30pm).) Nacho Byrne MD [Staff Physician] - 1 Week Armando Friend MD [Staff Physician] - 1 Week Disposition: HOME - Home Medications Comprehensive Discharge Medication List: Ambulatory Orders Ascorbic Acid [Vitamin C -] 500 mg PO BID 10/07/17 Diphenhydramine HCl [Benadryl Capsule -] 25 mg PO Q6H 10/07/17 Folic Acid - 1 mg PO DAILY 10/07/17 Hydromorphone [Dilaudid -] 4 mg PO Q4H PRN 10/07/17 Zinc Sulfate 220 mg PO DAILY 10/07/17 This patient is new to me today: No Emergency Visit: Yes ED Registration Date: 10/10/17 Care time: The patient presented to the Emergency Department on the above date and was hospitalized for further evaluation of their emergent condition. Critical Care patient: No - Discharge Referral Referred to [facility] Med P.C.: No
[2017-10-17 10:09] LABS: SERUM IRON 103 ug/dL (27-159)
--- NOTE | 2017-10-17 15:11 | PN ---
Teaching Attending Note Name of Resident: Fransisca Yo ATTENDING PHYSICIAN STATEMENT I saw and evaluated the patient. I reviewed the resident's note and discussed the case with the resident. I agree with the resident's findings and plan as documented. SUBJECTIVE: No fever or chills. No abd pain today , no CP or SOB . mild pain in extremities with relief after po dilaudid OBJECTIVE: NAD CV: RRR, 3/6 SM at LLSB Lungs: CTAB Ext: No edema . l ankle clean dressing ASSESSMENT AND PLAN: 31 y/o unfortunate lady with h/o sickle cell disease , chronic L foot ulcer and avascular necrosis of Hip who presented with pain after hyperbaric treatment. She was found to have Acute sickle cell crisis 1- Acute Sickle cell crisis : stable HB. LDH and bili are down - check HB as out pt . - f/u with Dr. Hines , her It Systems Manager at [facility] - Cont her home dilaudid at 4 mg q 4h as prescribed by her chemical detection expert. No prescription given at dc 2- PNA : - Completed a course of levaquin 3- Duodenitis : out pt f/u . No need for PPI at dc DC home today . f.u with PCP and Dr. Hines
[2017-10-18 06:07] LABS: TRANSFERRIN 114 mg/dL (200-370)
[2017-10-18 19:16] LABS: Hgb A2 4.2 % (0.7-3.1)
[2017-10-19 15:22] LABS: Hgb A2 3.5 % (0.7-3.1)
== END 2017-10-17 13:46 | disposition home or self-care (01) | DRG 811 ==
LOC: JER 15:01 → JERBED 18:23 → J7W 21:49 → OBSVTOIN 10-10 09:00
PROVIDERS: ADMIT Internal Medicine; ATTEND Internal Medicine
PROC: 02HV33Z Insertion of Infusion Device into Superior Vena Cava, Percutaneous Approach (ICD-10-PCS; principal; 2017-10-11)
PROC: B548ZZA Ultrasonography of Superior Vena Cava, Guidance (ICD-10-PCS; 2017-10-11)
PROC: 0DB98ZX Excision of Duodenum, Via Natural or Artificial Opening Endoscopic, Diagnostic (ICD-10-PCS; 2017-10-13)
PROC: 0DB68ZX Excision of Stomach, Via Natural or Artificial Opening Endoscopic, Diagnostic (ICD-10-PCS; 2017-10-13)
DX: D57.00 Hb-SS disease with crisis, unspecified (principal); J18.9 Pneumonia, unspecified organism; M87.88 Other osteonecrosis, other site; J90 Pleural effusion, not elsewhere classified; J98.11 Atelectasis; K25.9 Gastric ulcer, unspecified as acute or chronic, without hemorrhage or perforation; D62 Acute posthemorrhagic anemia; K44.9 Diaphragmatic hernia without obstruction or gangrene; K22.2 Esophageal obstruction; K29.80 Duodenitis without bleeding; L97.529 Non-pressure chronic ulcer of other part of left foot with unspecified severity
CPT/HCPCS: 36415; 36430; 71010-TC; 80053; 81003; 82150; 82247; 82248; 82550; 82728; 83021; 83540; 83615; 83690; 84466; 84484; 84703; 85025; 85027; 85044; 85610; 85660; 86850; 86880; 86900; 86901; 86902; 86922; 87040; 87086; 87899; 88305-TC; 88342-TC; 90688; 93005; 93010; 94010; 99285-25; G0008; G0277; G0378; P9038; P9058

== ENCOUNTER 2017-12-15 18:19 | Emergency (ER) | payer OTHER ==
[2017-12-15 18:49] VITALS: TEMP 98.5; BMI 24.7
[2017-12-15] MEDS ORDERED: SODIUM CHLORIDE 1,000 ML IV STA ×2 (19:54→22:53)
[2017-12-15] MEDS ORDERED: ASPIRIN 81 MG CHEWABLE TABLETS PO ONE (19:54)
[2017-12-15] MEDS ORDERED: HYDROmorphone HCL CARPU-JECT 2 MG/1 ML DISP.SYRIN IVPUSH ONE ×2 (19:56→22:52)
--- NOTE | 2017-12-15 20:00 | PDOC ---
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 Patient states she was at work when she had sudden onset of pain. She didn't sustain to wound care and had a treatment the hyperbaric chamber for wound care which she felt was cannot help relief her pain. The pain did not relieve after the treatment and she presented to the emergency room for management of her pain. Patient states this pain is her usual sickle cell crisis. She denies any fevers, chills, shortness of breath, nausea, vomiting, abdominal pain. Vital signs notable for bradycardia at 53 and hypotension 81/47 patient's usual systolic is 90's-110's. PMH: Sickle cell disease, avascular necrosis of bilateral ankles, multiple episodes of acute chest syndrome, left lower extremity ulceration PSH: Skin grafts Communication Specialist:Carrie @ [employer] Past History - Past Medical History Allergies/Adverse Reactions: Allergies Allergy/AdvReac Type Severity Reaction Status Date / Time bacitracin Allergy Verified 12/15/17 21:52 morphine Allergy Verified 12/15/17 21:52 Home Medications: Ambulatory Orders Ascorbate Calcium [Vitamin C] 500 mg PO DAILY 12/16/17 Deferasirox [Jadenu] 360 mg PO Q6H 12/16/17 Folic Acid 1 mg PO DAILY 12/16/17 Hydromorphone HCl [Dilaudid] 4 mg PO PRN 12/16/17 Zinc 220 mg PO TID 12/16/17 Anemia: Yes (sickle cell) COPD: No Diabetes: No HTN: No Hypercholesterolemia: No - Immunization History Immunization Up to Date: Yes - Suicide/Smoking/Psychosocial Hx Smoking History: Never smoked Have you smoked in the past 12 months: No Number of Cigarettes Smoked Daily: 0 Cigars Per Day: 0 Information on smoking cessation initiated: No Hx Alcohol Use: No Drug/Substance Use Hx: No Substance Use Type: None Hx Substance Use Treatment: No Review of Systems - Review of Systems Able to Perform ROS?: Yes Is the patient limited Colombian proficient: No Constitutional: No: Symptoms Reported HEENTM: No: Symptoms Reported Respiratory: No: Symptoms reported Cardiac (ROS): Yes: See HPI ABD/GI: No: Symptoms Reported : No: Symptoms Reported Musculoskeletal: Yes: See HPI Integumentary: Yes: See HPI Neurological: No: Symptoms reported Endocrine: No: Symptoms Reported Hematologic/Lymphatic: No: Symptoms Reported *Physical Exam - Vital Signs Last Vital Signs Temp Pulse Resp BP Pulse Ox 98.5 F 69 18 100/60 97 12/15/17 18:45 12/16/17 00:35 12/16/17 00:35 12/16/17 00:35 12/16/17 00:35 - Physical Exam General Appearance: Yes: Appropriately Dressed, Mild Distress HEENT: positive: Normal ENT Inspection Neck: positive: Trachea midline, Supple Respiratory/Chest: positive: Lungs Clear, Normal Breath Sounds. negative: Chest Tender, Respiratory Distress, Accessory Muscle Use Cardiovascular: positive: Regular Rhythm, S1, S2, Bradycardia. negative: Edema , Murmur Vascular Pulses: Dorsalis-Pedis (R): 2+, Doralis-Pedis (L): 2+ Gastrointestinal/Abdominal: positive: Normal Bowel Sounds, Soft. negative: Tender Musculoskeletal: positive: Normal Inspection, Other (tenderness to bilateral hips). negative: CVA Tenderness Extremity: positive: Normal Capillary Refill, Normal Inspection, Normal Range of Motion, Tender (tenderness to bilateral hips) Integumentary: positive: Normal Color, Dry, Warm Neurologic: positive: Fully Oriented, Alert, Normal Mood/Affect, Normal Response , Motor Strength 5/5 Heart Score/ECG Review - History History: Slightly suspicious - Electrocardiogram EKG: Non specific repolarization disturbance - Age Age: </= 45 - Risk Factors Based on the list above the patient has:: No risk factors known - Troponin Troponin: </= normal limit - Score Heart Score - Total: 1 - ECG Intrepretation Rhythm: Regular Rhythm - ECG Impressions Bradycardia: Yes ED Treatment Course - LABORATORY CBC & Chemistry Diagram: 12/15/17 21:25 12/15/17 21:25 - ADDITIONAL ORDERS Additional order review: Laboratory Results 12/16/17 12/15/17 12/15/17 02:24 22:40 21:25 PT with INR INR Sodium Potassium Chloride Carbon Dioxide Anion Gap BUN Creatinine Creat Clearance w eGFR Random Glucose Calcium Magnesium Total Bilirubin AST ALT Alkaline Phosphatase Creatine Kinase Troponin I Total Protein Albumin Urine Color Ltyellow Urine Appearance Clear Urine pH 6.0 Ur Specific [place] 1.004 Urine Protein Negative Urine Glucose (UA) Negative Urine Ketones Negative Urine Blood Negative Urine Nitrite Negative Urine Bilirubin Negative Urine Urobilinogen Negative Ur Leukocyte Esterase Negative Urine HCG, Qual Negative Blood Type O POSITIVE Antibody Screen Negative 12/15/17 12/15/17 21:25 21:25 PT with INR 14.70 H INR 1.30 H Sodium 141 Potassium 4.0 Chloride 107 Carbon Dioxide 26 Anion Gap 8 BUN 6 L Creatinine 0.5 L Creat Clearance w eGFR > 60 Random Glucose 80 Calcium 8.2 L Magnesium 2.1 Total Bilirubin 5.6 H AST 24 ALT 15 Alkaline Phosphatase 59 Creatine Kinase 37 Troponin I < 0.02 Total Protein 6.9 Albumin 3.8 Urine Color Urine Appearance Urine pH Ur Specific [place] Urine Protein Urine Glucose (UA) Urine Ketones Urine Blood Urine Nitrite Urine Bilirubin Urine Urobilinogen Ur Leukocyte Esterase Urine HCG, Qual Blood Type Antibody Screen 12/15/17 21:25 RBC 2.74 L MCV 84.4 MCHC 32.9 RDW 19.9 H MPV 8.0 Neutrophils % No Result Required. Lymphocytes % No Result Required. - RADIOLOGY Radiology Studies Ordered: Category Date Time Status CHEST PA & LAT [RAD] Stat Radiology 12/16/17 01:28 Taken - Medications Given in the ED: ED Medications Discontinued Medications Generic Name Dose Route Start Last Admin Trade Name Freq PRN Reason Stop Dose Admin Aspirin 162 mg 12/15/17 19:54 12/15/17 20:54 Asa - PO 12/15/17 19:55 162 mg ONCE ONE Administration Diphenhydramine HCl 25 mg 12/15/17 19:56 12/15/17 20:54 Benadryl Injection - IVPB 12/15/17 19:57 25 mg ONCE ONE Administration Diphenhydramine HCl 25 mg 12/16/17 02:27 12/16/17 02:55 Benadryl Injection - IVPUSH 12/16/17 02:28 25 mg ONCE ONE Administration Hydromorphone HCl 2 mg 12/15/17 19:56 12/15/17 20:54 Dilaudid Injection - IVPUSH 12/15/17 19:57 2 mg ONCE ONE Administration Hydromorphone HCl 4 mg 12/15/17 22:52 12/15/17 23:25 Dilaudid Injection - IVPUSH 12/15/17 22:53 4 mg ONCE ONE Administration Hydromorphone HCl 4 mg 12/16/17 02:26 12/16/17 02:55 Dilaudid Injection - IVPUSH 12/16/17 02:27 4 mg ONCE ONE Administration Sodium Chloride 1,000 mls @ 1,000 mls/hr 12/15/17 19:54 12/15/17 20:54 Normal Saline - IV 12/15/17 20:53 1,000 mls/hr ASDIR STA Administration Sodium Chloride 1,000 mls @ 1,000 mls/hr 12/15/17 22:53 12/15/17 22:59 Normal Saline - IV 12/15/17 23:52 1,000 mls/hr ASDIR STA Administration Medical Decision Making - Medical Decision Making 12/15/17 20:00 A/P: This is a 32-year-old woman with past medical history of 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 Patient states she was at work when she had sudden onset of pain. She didn't sustain to wound care and had a treatment the hyperbaric chamber for wound care which she felt was cannot help relief her pain. The pain did not relieve after the treatment and she presented to the emergency room for management of her pain. Patient states this pain is her usual sickle cell crisis. She denies any fevers, chills, shortness of breath, nausea, vomiting, abdominal pain. Respirations even and unlabored. Lungs clear to auscultation bilaterally. Chest nontender. S1 and S2 present no murmur, rub or gallop. No edema noted. Capillary refill less than 2 seconds. Normoactive bowel sounds. Abdomen soft nontender nondistended. Patient refused examination of ulceration to left lateral ankle. (+) DP pulses. Examination of oropharynx is clear without erythema or exudates. No pallor noted to conjunctival or mucous membrane. Differential diagnosis include: sickle cell crisis, acute chest syndrome, acute coronary syndrome, PE I will obtain CBC, reticulocyte, CMP, regulation profile, cardiac profile, type and screen, urinalysis, urine test, chest x-ray, EKG, continuous cardiac monitoring. I'll give the patient 4 mg of diluted to help control pain and 25 mg of Benadryl IV push. Patient will receive IV hydration with normal saline 2 L bolus. I will reevaluate the patient after all testing has been completed. Well's criteria for PE score-0. Given lack of hypoxia, tachycardia, hemoptysis, prolonged immobility and absence of clinical signs of DVT, PE is less likely. 12/16/17 02:42 Chest x-ray as read by me: No focal consolidation or infiltration noted. Prominent kaycee. Unchanged from x-ray done 10/14/2017. Current pain level 7/10. Patient states: 6/10 as tolerable. I'll give the patient another dose of diluted with Benadryl and follow-up. If pain is a 6 or better, but discharge the patient to follow-up with her dictating machine typist at her previously scheduled appointment. Patient allowed assessment of chronic wound. Granulation tissue noted to wound bed. No discharge or drainage present. 12/16/17 03:26 Chest pain is completely resolved. Pain in the hips is 5 out of 10 right now. Leukocytosis is likely reactive given no signs of infection are present. I will discharge the patient to follow-up with wound care tomorrow and her dictating machine typist at previously scheduled appointment. Patient is in agreement with this plan. Strict return precautions were given to patient. *DC/Admit/Observation/Transfer Diagnosis at time of Disposition: Sickle cell pain crisis - Discharge Dispostion Disposition: HOME Condition at time of disposition: Stable Admit: No - Referrals - Patient Instructions Additional Instructions: Keep well-hydrated. Try to keep warm. Take all previously prescribed medications as prescribed. Return to emergency department for fevers, chills, chest pain, shortness of breath, worsening pain, dizziness, visual changes or any other concerns. Thank you very much for choosing us to provide your emergent healthcare needs. - Post Discharge Activity
[2017-12-15] MEDS ORDERED: HYDROmorphone HCL CARPU-JECT 2 MG/1 ML DISP.SYRIN ONE ×2 (20:02→23:18)
[2017-12-15] MEDS ORDERED: ASPIRIN 81 MG CHEWABLE TABLETS ONE (20:02)
--- NOTE | 2017-12-15 20:11 | PDOC ---
*Physical Exam - Vital Signs Last Vital Signs Temp Pulse Resp BP Pulse Ox 98.5 F 53 L 18 81/47 100 12/15/17 18:45 12/15/17 18:45 12/15/17 18:45 12/15/17 18:45 12/15/17 18:45 ED Treatment Course - LABORATORY CBC & Chemistry Diagram: 12/15/17 21:25 12/15/17 21:25 Medical Decision Making - Medical Decision Making 12/15/17 20:11 agree with care from LAZARUS Krishnamurthy *DC/Admit/Observation/Transfer Diagnosis at time of Disposition: Sickle cell pain crisis - Discharge Dispostion Disposition: HOME Condition at time of disposition: Stable - Referrals - Patient Instructions Additional Instructions: Keep well-hydrated. Try to keep warm. Take all previously prescribed medications as prescribed. Return to emergency department for fevers, chills, chest pain, shortness of breath, worsening pain, dizziness, visual changes or any other concerns. Thank you very much for choosing us to provide your emergent healthcare needs. - Post Discharge Activity
[2017-12-15 21:38] LABS: HEMATOCRIT 23.1 % (32.4-45.2); HEMOGLOBIN 7.6 GM/dL (10.7-15.3); MCH 27.8 pg (25.7-33.7); MCHC 32.9 g/dl (32.0-36.0); MEAN CELL VOLUME 84.4 fl (80-96); PLATELET COUNT 412 K/MM3 (134-434); RBC 2.74 M/mm3 (3.60-5.2); RDW 19.9 % (11.6-15.6); WHITE BLOOD COUNT 17.5 K/mm3 (4.0-10.0)
[2017-12-15 21:43] LABS: ADD RBC MORPHOLOGY YES
[2017-12-15 21:52] LABS: INR 1.3 (0.82-1.09); PROTHROMBIN TIME (PATIENT) 14.7 SEC (9.98-11.88)
[2017-12-15 22:20] LABS: ALBUMIN 3.8 g/dl (3.4-5.0); ANION GAP 8 (8-16); BLOOD UREA NITROGEN 6 mg/dL (7-18); CALCIUM 8.2 mg/dL (8.5-10.1); CHLORIDE 107 mmol/L (98-107); CO2 26 mmol/L (21-32); CREATININE 0.5 mg/dL (0.55-1.02); GLUCOSE,RANDOM 80 mg/dL (74-106); MAGNESIUM 2.1 mg/dL (1.8-2.4); SGOT/AST 24 U/L (15-37); SGPT/ALT 15 U/L (12-78); SODIUM 141 mmol/L (136-145)
[2017-12-15 22:24] LABS: ALK PHOS 59 U/L (45-117); BILIRUBIN,TOTAL 5.6 mg/dL (0.2-1.0); TOT PROT 6.9 g/dl (6.4-8.2)
[2017-12-15 23:26] LABS: ANISOCYTOSIS 2+; OVALOCYTE 2+; PLATELET ESTIMATE ADEQUATE; SICKELED CELLS 2+; TARGET CELLS 1+
[2017-12-16 00:35] VITALS: BP 100/60; PULSE 69
[2017-12-16] MEDS ORDERED: HYDROmorphone HCL CARPU-JECT 2 MG/1 ML DISP.SYRIN IVPUSH ONE (02:26)
[2017-12-16] MEDS ORDERED: HYDROmorphone HCL CARPU-JECT 2 MG/1 ML DISP.SYRIN ONE (02:31)
[2017-12-16 02:40] LABS: URINE APPEARANCE CLEAR; URINE BILIRUBIN NEGATIVE (NEGATIVE); URINE BLOOD NEGATIVE (NEGATIVE); URINE COLOR LTYELLOW; URINE GLUCOSE (UA) NEGATIVE (NEGATIVE); URINE KETONE NEGATIVE (NEGATIVE); URINE LEUK ESTERASE NEGATIVE (NEGATIVE); URINE NITRITE NEGATIVE (NEGATIVE); URINE PROTEIN NEGATIVE (NEGATIVE); URINE UROBILINOGEN NEGATIVE mg/dL (0.2-1.0)
--- NOTE | 2017-12-16 13:27 | EKG ---
Test Reason : Blood Pressure : / mmHG Vent. Rate : 051 BPM Atrial Rate : 051 BPM P-R Int : 180 ms QRS Dur : 068 ms QT Int : 440 ms P-R-T Axes : 016 071 059 degrees QTc Int : 405 ms SINUS BRADYCARDIA WITH SINUS ARRHYTHMIA T WAVE ABNORMALITY, CONSIDER ANTERIOR ISCHEMIA ABNORMAL ECG Confirmed by MD MARCE, MIKE ([id number]) on 12/16/2017 1:27:16 PM Referred By: Confirmed By:MIKE ZHENG MD
== END 2017-12-16 07:08 | disposition home or self-care (01) ==
LOC: JER 18:19
PROC: 3E0337Z Introduction of Electrolytic and Water Balance Substance into Peripheral Vein, Percutaneous Approach (ICD-10-PCS; principal; 2017-12-15)
PROC: 3E033NZ Introduction of Analgesics, Hypnotics, Sedatives into Peripheral Vein, Percutaneous Approach (ICD-10-PCS; 2017-12-15)
PROC: 3E033GC Introduction of Other Therapeutic Substance into Peripheral Vein, Percutaneous Approach (ICD-10-PCS; 2017-12-15)
DX: D57.811 Other sickle-cell disorders with acute chest syndrome (principal)
CPT/HCPCS: 36415; 71046-TC-FY; 80053; 81003; 82550; 83735; 84484; 84703; 85025; 85044; 85610; 86850; 86900; 86901; 93005; 93010; 99283-25; G0277

== ENCOUNTER 2021-09-26 22:00 | Observation (INO) | payer OTHER ==
[2021-09-26] MEDS ORDERED: SODIUM CHLORIDE 0.9% 500 ML INFUS.BAG IV ONE (23:08)
[2021-09-27 00:08] LABS: HEMATOCRIT 27.4 % (32.4-45.2); HEMOGLOBIN 9.4 GM/dL (10.7-15.3); MCH 30.1 pg (25.7-33.7); MCHC 34.2 g/dl (32.0-36.0); MEAN CELL VOLUME 87.8 fl (80-96); MEAN PLT VOLUME 7.6 fl (7.5-11.1); PLATELET COUNT 423 10^3/uL (134-434); RBC 3.12 M/mm3 (3.60-5.2); RDW 15.2 % (11.6-15.6); RETICULOCYTES 5.13 % (0.5-1.5); WHITE BLOOD COUNT 9.8 K/mm3 (4.0-10.0)
[2021-09-27 00:29] LABS: INR 1.19 (0.83-1.09); PROTHROMBIN TIME (PATIENT) 13.9 SEC (9.7-13.0)
[2021-09-27 00:29] LABS: CHLORIDE 113 mmol/L (98-107); SODIUM 142 mmol/L (136-145)
[2021-09-27 00:31] LABS: CALCIUM 8.5 mg/dL (8.5-10.1)
[2021-09-27 00:32] LABS: ACTIVATED PTT 38.3 SECONDS (25.2-36.5)
[2021-09-27 00:32] LABS: ALBUMIN 3.8 g/dl (3.4-5.0); ANION GAP 4 MMOL/L (8-16); BLOOD UREA NITROGEN 6.7 mg/dL (7-18); CO2 25 mmol/L (21-32); GLUCOSE,RANDOM 77 mg/dL (74-106)
[2021-09-27 00:35] LABS: CREATININE 0.5 mg/dL (0.55-1.3); SGOT/AST 19 U/L (15-37); SGPT/ALT 12 U/L (13-61)
[2021-09-27 00:36] LABS: BILIRUBIN,TOTAL 5.1 mg/dL (0.2-1); LDH 310 U/L (84-246); TOT PROT 6.9 g/dl (6.4-8.2)
[2021-09-27 00:38] LABS: ALK PHOS 65 U/L (45-117)
[2021-09-27 01:07] LABS: EPI CELLS 3 /uL (0-25.1); HYALINE CASTS 0 /uL (0-3.1); PH,URINE 5.5 (5.0-8.0); URINE APPEARANCE CLEAR; URINE BACTERIA 46 /uL (0-1359); URINE BILIRUBIN NEGATIVE (NEGATIVE); URINE COLOR YELLOW; URINE GLUCOSE (UA) NEGATIVE (NEGATIVE); URINE KETONE NEGATIVE (NEGATIVE); URINE LEUK ESTERASE NEGATIVE (NEGATIVE); URINE NITRITE NEGATIVE (NEGATIVE); URINE PROTEIN NEGATIVE (NEGATIVE); URINE RBC 29 /uL (0-23.9); URINE WBC 4 /uL (0-25.8)
[2021-09-27] MEDS ORDERED: ACETAMINOPHEN 1000 MG/100 ML VIAL IVPB ONE (01:20)
[2021-09-27] MEDS ORDERED: ACETAMINOPHEN INJECTION 100 ML IVPB ONE (01:23)
[2021-09-27] MEDS ORDERED: HYDROmorphone HCL CARPU-JECT 2 MG/1 ML DISP.SYRIN IVPUSH ONE ×2 (01:53→09:43)
[2021-09-27] MEDS ORDERED: HYDROmorphone HCl 2 MG/ML VIAL ONE ×4 (01:56→16:11)
[2021-09-27] MEDS ORDERED: SODIUM CHLORIDE 0.9% 500 ML INFUS.BAG IV ONE (02:02)
[2021-09-27] MEDS ORDERED: HYDROmorphone HCL CARPU-JECT 2 MG/1 ML DISP.SYRIN IVPB ONE (06:30)
[2021-09-27] MEDS ORDERED: HYDROmorphone HCL 2 MG TABLET PO ONE (09:32)
[2021-09-27] MEDS ORDERED: diphenhydrAMINE HCL 12.5 MG/5 ML UNIT-DOSE CUPS PO ONE (09:33)
[2021-09-27] MEDS ORDERED: DOCUSATE SODIUM 100 MG CAPSULE (FP) PO PRN (12:42)
[2021-09-27] MEDS ORDERED: HYDROmorphone HCl 2 MG/ML VIAL IVPB PRN (12:42)
[2021-09-27] MEDS: SODIUM CHLORIDE 0.45%/POT 20 MEQ/1,000 ML INFUS.BAG IV SCH ×2 (13:16→23:09)
[2021-09-27] MEDS: HYDROmorphone HCl 2 MG/ML VIAL IVPB PRN ×3 (16:29→23:10)
[2021-09-27 18:28] VITALS: BMI 21.2
[2021-09-27] MEDS: ZINC SULFATE 220 MG CAPSULE (FP) PO SCH ×2 (18:32→21:55)
[2021-09-27] MEDS ORDERED: HYDROmorphone HCl 2 MG/ML VIAL IVPUSH PRN (20:29)
[2021-09-27] MEDS: HEPARIN NA (PORCINE) 5,000 UNITS/ML 1ML VIAL SQ SCH (21:54)
[2021-09-28] MEDS: HYDROmorphone HCl 2 MG/ML VIAL IVPB PRN ×3 (04:15→11:45)
[2021-09-28 05:35] VITALS: BP 103/64; PULSE 70; TEMP 98
[2021-09-28] MEDS: ZINC SULFATE 220 MG CAPSULE (FP) PO SCH ×2 (06:16→15:54)
[2021-09-28] MEDS ORDERED: PT OWN MED DRAWER 7, Y5N ONE (08:12)
[2021-09-28] MEDS ORDERED: ASCORBIC ACID 500 MG TABLET (FP) PO SCH (10:00)
[2021-09-28] MEDS ORDERED: FLU VACC QS2021-22(6MOS UP)/PF 60 MCG/0.5 ML SYRINGE IM ONE (10:00)
[2021-09-28] MEDS ORDERED: DEFERASIROX 360 MG PO SCH (10:00)
[2021-09-28] MEDS ORDERED: FOLIC ACID 1 MG TABLET (FP) PO SCH (10:00)
[2021-09-28] MEDS: HEPARIN NA (PORCINE) 5,000 UNITS/ML 1ML VIAL SQ SCH (11:32)
== END 2021-09-28 16:09 | disposition home or self-care (01) ==
LOC: JER 22:00 → JERBED 09-27 12:04 → INTOOBSV 09-27 12:04 → J6S 09-27 18:31
PROVIDERS: ADMIT Internal Medicine
PROC: 3E033GC Introduction of Other Therapeutic Substance into Peripheral Vein, Percutaneous Approach (ICD-10-PCS; principal; 2021-09-27)
PROC: 3E033NZ Introduction of Analgesics, Hypnotics, Sedatives into Peripheral Vein, Percutaneous Approach (ICD-10-PCS; 2021-09-27)
PROC: 3E023GC Introduction of Other Therapeutic Substance into Muscle, Percutaneous Approach (ICD-10-PCS; 2021-09-27)
PROC: 3E0337Z Introduction of Electrolytic and Water Balance Substance into Peripheral Vein, Percutaneous Approach (ICD-10-PCS; 2021-09-27)
DX: D57.00 Hb-SS disease with crisis, unspecified (principal); F11.20 Opioid dependence, uncomplicated; K83.1 Obstruction of bile duct; Z88.8 Allergy status to other drugs, medicaments and biological substances; Z88.6 Allergy status to analgesic agent
CPT/HCPCS: 36415; 71046-TC-FY; 74177-TC; 76705-TC; 80053; 81003; 82550; 83615; 84484; 84703; 85027; 85045; 85610; 85730; 86850; 86900; 86901; 87086; 90686; 99285-25; C9803; G0378; J3480; U0003; U0005